=== PATIENT | female | born 1945 | race Caucasian/White ===

== ENCOUNTER 2018-09-25 11:03 | Outpatient (CLI) | payer OTHER, SELFPAY ==
[2018-09-25 11:51] LABS: HCT 44.3 % (36.0-46.0); HGB 14.7 g/dL (12.0-15.5)
[2018-09-25 12:25] LABS: COMMENT (LAB VIEW ONLY) 150.36 mg/dL
[2018-09-25 14:55] LABS: Anion Gap 13.7 mmol/L (3-11); BUN 24 mg/dL (7-18); CO2 25.3 mmol/L (21.0-32.0); CREATININE 1.18 mg/dL (0.55-1.02); Calcium 9.5 mg/dL (8.5-10.1); Chloride 102 mmol/L (98-107); Estimated GFR 45.15 (mL/min/1.73m2); Glucose 113 mg/dL (70-100); Potassium 4.5 mmol/L (3.5-5.1); Sodium 141 mmol/L (136-145); TSH 1.84 uIU/mL (0.358-3.74)
[2018-09-25 15:09] LABS: Calculated LDL 92; Cholesterol 177 mg/dL (50-200); HDL Cholesterol 57 mg/dL (40-60); Triglyceride 141 mg/dL (30-150)
== END 2018-09-25 11:23 ==
PROVIDERS: PCP Internal Medicine; Visit Provider Internal Medicine
DX: E11.9 Type 2 diabetes mellitus without complications (principal); E78.00 Pure hypercholesterolemia, unspecified; I10 Essential (primary) hypertension; Z51.81 Encounter for therapeutic drug level monitoring; Z79.1 Long term (current) use of non-steroidal anti-inflammatories (NSAID); R63.5 Abnormal weight gain
CPT/HCPCS: 36415; 80048; 80061; 83721; 82043; 82570; 84443; 85014; 85018

== ENCOUNTER 2019-01-01 01:19 | Outpatient (CLI) | payer OTHER, SELFPAY ==
--- NOTE | 2019-01-01 09:34 | DI.CTLCSR_ITS ---
EXAM: CT CHEST LUNG CANCER SCREEN CLINICAL HISTORY: annual z87.891 history nicotine dependence. TECHNIQUE: A low-dose chest CT was carried out according to the usual protocol. COMPARISON: CHEST - LUNG CANCER SCREENING from 10/12/2017 FINDINGS: No pulmonary nodules are identified. The lungs are free of infiltrate. There is no pleural effusio n. The heart is not enlarged. Allowing for the absence of contrast material, there is no evidence o f hilar adenopathy. There are atherosclerotic changes involving the aorta without evidence of an aneu rysm. IMPRESSION: This is a lung rads category 1 examination, follow-up surveillance with annual low-dose chest CT is r ecommended.
== END 2019-01-01 01:39 ==
PROVIDERS: PCP Internal Medicine; Visit Provider Internal Medicine
DX: Z12.2 Encounter for screening for malignant neoplasm of respiratory organs; Z87.891 Personal history of nicotine dependence; I70.0 Atherosclerosis of aorta
CPT/HCPCS: G0297

== ENCOUNTER 2020-08-04 03:20 | Outpatient (CLI) | payer OTHER, SELFPAY ==
[2020-08-04 11:37] LABS: Anion Gap 11.3 mmol/L (3-11); BUN 16 mg/dL (7-18); CO2 25.7 mmol/L (21.0-32.0); CREATININE 1.2 mg/dL (0.55-1.02); Calcium 8.9 mg/dL (8.5-10.1); Calculated LDL 91 mg/dL (<100); Chloride 104 mmol/L (98-107); Cholesterol 178 mg/dL (<200); Estimated GFR 44.04 (mL/min/1.73m2); Glucose 137 mg/dL (74-106); HDL Cholesterol 62 mg/dL (40-60); Potassium 4.1 mmol/L (3.5-5.1); Sodium 141 mmol/L (136-145); Triglyceride 128 mg/dL (<150)
[2020-08-04 11:55] LABS: Microalb ug/mg Crea 49.5 ug/mg Cr
== END 2020-08-04 03:21 | disposition home or self-care (01) ==
LOC: LBO 03:20
PROVIDERS: PCP Internal Medicine; Visit Provider Internal Medicine
DX: I10 Essential (primary) hypertension (principal); E11.9 Type 2 diabetes mellitus without complications; E78.00 Pure hypercholesterolemia, unspecified
CPT/HCPCS: 36415; 80048; 80061; 82043; 82570

== ENCOUNTER 2021-02-05 00:35 | Outpatient (CLI) | payer MEDICARE, SELFPAY ==
--- NOTE | 2021-02-05 | DI.MAMMO_ITS ---
Exam(s) MAMMO SCREENING EXAM: MAMMO SCREENING CLINICAL HISTORY: screening,Z12.39 TECHNIQUE: Mammograms were interpreted according to the usual protocol including computer analysis w Notegraphy system, tomosynthesis and C-view imaging. COMPARISON: FINDINGS: The breasts are of moderate density with fairly symmetrical distribution of fibroglandular tissue. N o dominant mass is identified in either breast. There are benign-appearing calcifications in both br easts which appear stable in comparison with previous examination October 2017. No other significant change seen. IMPRESSION: No specific evidence of malignancy at this time. Routine screening examinations are suggested at yea rly intervals due to the family history of breast carcinoma.. BI-RADS Category 1 - Negative Breast Density - Category B - Scattered areas of fibroglandular density
--- NOTE | 2021-02-05 | DI.CTLCSR_ITS ---
Exam(s) CT CHEST LUNG CANCER SCREEN EXAM: CT CHEST LUNG CANCER SCREEN CLINICAL HISTORY: Screening for lung cancer,FORMER SMOKER, Z87.891 TECHNIQUE: CT examination of the chest was performed utilizing low-dose lung cancer screening protoc ol. COMPARISON: CT CT CHEST LUNG CANCER SCREEN from 01/01/2019 FINDINGS: Images obtained through the upper abdomen show unremarkable appearance of visualized portions of the liver and spleen. There is no mediastinal or hilar adenopathy. Mediastinal vascular structures appear intact by noncon trast criteria. Tracheobronchial tree appears intact. No pleural effusion or pleural-based mass. The lungs are clear with no significant intrapulmonary nodule identified. Note is made of coronary artery calcification. IMPRESSION: Lung RADS Cat 1 - Negative: No nodules and definitely benign nodules Continue annual screening with LDCT in 12 months. RADIATION DOSE DELIVERED: 93.17mGy.cm Total DLP 2.21mGy CTDIvol 93.17mGy.cm Total DLP 2.21mGy CTDIvol RADIATION OPTIMIZATION: All CT scans at this facility use at least one of these dose optimization te chniques: automated exposure control; mA and/or kV adjustment per patient size (includes targeted exa ms where dose is matched to clinical indication); or iterative reconstruction.
--- NOTE | 2021-02-05 | DI.DEXA_ITS ---
Exam(s) XR DEXA BONE DENSITY W/WO RASHEL EXAM: XR DEXA BONE DENSITY W/WO RASHEL CLINICAL HISTORY: screening for osteoporosis IN POSTMENOPAUSAL WOMAN,Z78.0 TECHNIQUE: COMPARISON: No exams were available for comparison FINDINGS: DEXA scan was performed according to the usual protocol. Findings for left hip scanning are T-score -1.4 with left femoral neck T-score -1.9. Findings for lumbar spine scanning are T-score -1.0. Prior scan of May 2011 showed lumbar T-sco re -1.3. Right forearm scanning shows T-score -2.2. Prior examination of 29/03 showed forearm T-score -0.9. IMPRESSION: The findings are consistent with osteopenia according to the WHO criteria. The lateral vertebral sca nogram shows no evidence of a vertebral compression fracture. RADIATION DOSE DELIVERED: Total DLP
== END 2021-02-05 00:55 ==
PROVIDERS: PCP Internal Medicine; Visit Provider Internal Medicine
DX: Z13.820 Encounter for screening for osteoporosis (principal); Z78.0 Asymptomatic menopausal state; Z12.31 Encounter for screening mammogram for malignant neoplasm of breast; Z12.2 Encounter for screening for malignant neoplasm of respiratory organs; Z80.3 Family history of malignant neoplasm of breast; M85.89 Other specified disorders of bone density and structure, multiple sites
CPT/HCPCS: 71271; 77063; 77067; 77080

== ENCOUNTER 2021-11-05 01:25 | Outpatient (CLI) | payer MEDICARE, SELFPAY ==
--- OUTSIDE RECORDS SUMMARY | 2021-11-05 01:28 | XMS_ITS | Encounter Summary ---
:1945 [place] [address] Care Team Providers Name Role Phone Rasheeda Reyes MD Primary Care Provider Reason for Visit Reason Comments Follow-up Nephrolithiasis Encounter Details Date Type Department Care Team Description 01/20/2015 Office Visit Urology at [facility] Kwame Medrano Jr., Nephrolithiasis [facility] [place] [address] [facility] [phone] UROLOGY DEPT. [place], [place] [address] (Wo rk) Social History Tobacco Use Types Packs/Day Years Used Date Former Smoker 0.5 Quit: 11/19/19 15 Smokeless Tobacco: Never Used Alcohol Use Standard Drinks/Week Comments No 0 (1 standard drink = 0.6 oz pure alcoho l) Sex Assigned at Date Recorded Not on file documented as of this encounter Last Filed Vital Signs Vital Sign Reading Time Taken Comments Blood Pressure 125/65 01/20/2015 9:40 AM EDT Pulse 105 01/20/2015 9:40 AM EDT Temperature - - Respiratory Rate - - Oxygen Saturation 96% 01/20/2015 9:40 AM EDT Inhaled Oxygen Concentration - - Weight - - Height - - Body Mass Index - - documented in this encounter Progress Notes Kwame Medrano Jr., MD - 01/20/2015 10:06 AM EDT HPI: Isaura Castillo is a 69 year old woman who presents for follow up after left renal SWL for a proximal left ureteral stone. She passed gravel postop, brings it in today. She is comfortable, denies ant residual abdominal or flank pain. She denies any hematuria or new LUTS. She has no prior history of urolithiasis MEDICAL AND SURGICAL HISTORY HTN Arthritis S/p left renal SWL Left ureteral stent placement and stent removal FAMILY HISTORY: No known family h/o urolithiasis Physical Exam Constitutional: She appears well-developed and well-nourished. No distress. Abdominal: Soft. There is no tenderness. Genitourinary: No CVA tenderness to percussion bilaterally Skin: She is not diaphoretic. Psychiatric: She has a normal mood and affect. Imaging studies: I independently reviewed the renal ultrasound from today. This reveals no evidence of residual hydronephrosis, hydroureter, or stones. KUB no longer shows previously demonstrated left proximal ureteral stone Imoression/Plan: Doing well s/p left renal SWL. No evidence of residual stone or hydro on u/s. Stonefragments (visually appears to be mostly tissue) sent for stone analysis. She will call in 1-2 weeksto review stone analysis. Plan follow up in 1 year with renal u/s documented in this encounter Miscellaneous Notes Addendum Note - Jazz York LPN - 01/20/2015 1:01 PM EDT Addended by: JAZZ YORK on: 01/20/2015 01:01 PM Modules accepted: Orders documented in this encounter Plan of Treatment Not on filedocumented as of this encounter Procedures Procedure Name Priority Date/Time Associated Diagnosis Comme nts KIDNEY STONE Routine 01/20/2015 12:26 Nephrolithiasis Results for this ANALYSIS PM EDT procedure are i n the results section. documented in this encounter Results Kidney Stone Analysis (01/20/2015 12:26 PM EDT) [facility] Method Time Signature Kidney Stone CERNER Analysis Test ?Result ?Flag ??Unit ??RefValue MILLENNIUM Kidney Stone Analysis ??Source: ? Bladder ??1st Constituent: 80% Calcium phosphate (apatite) ??2nd Constituent: 10% Calcium oxalate dihydrate ??3rd Constituent: ?10% Calcium carbonate Test Performed by: [facility] [address] [place] [address] [employer] Worker: Geo Avendano II, M.D., Ph.D. Specimen Anatomical Collection Method Collection Time Receive d Time (Source) Location / / Volume Laterality Calculus 01/20/2015 12:26 01/21/2015 8:46 specimen PM EDT AM EDT (specimen) Resulting Agency Comment Spec In Lab Kwame Medrano Jr., MD BODY FLUIDS AND STOOLS ORDER QUIN Performing Organization Address City/State/ZIP Code Phon e Number [address] [facility] documented in this encounter Visit Diagnoses Diagnosis Nephrolithiasis Calculus of kidney documented in this encounter Care Teams Buffing Turner And Counter Relationship Specialty Start Date End Date Rasheeda Reyes MD PCP - General 11/19/[address] [place] [address] documented as of this encounter
--- OUTSIDE RECORDS SUMMARY | 2021-11-05 01:28 | XMS_ITS | Clinical Summary ---
:1945 Author Organization [facility] [place] [address] Care Team Providers Name Role Phone Rasheeda Reyes MD Primary Care Provider Allergies Active Allergy Reactions Severity Noted Date Comments Mcmahon Ryan Other (See Comments) Low 11/19/2014 rhinorr hea Medications Medication Sig Dispensed Refills Start Date End Date Status losartan-hydrochlorothia 0 04/27/2009 Active zide (HYZAAR) 100-12.5 mg per tablet meclizine (ANTIVERT) 25 0 04/27/2009 Active mg tablet Qgocbadrrfxbv-Ivuamogq-Z 0 04/27/2009 Active utein (CENTRUM SILVER) Tab acetaminophen (TYLENOL 0 04/27/2009 Active EXTRA STRENGTH) 500 mg tablet potassium chloride Take 10 mEq by 0 Active (MICRO-K) 10 mEq mouth 2 times Capsule, Sustained daily. Release lovastatin (MEVACOR) 40 Take 80 mg by 0 Active mg Tablet mouth nightly. amLODIPine (NORVASC) 2.5 Take 2.5 mg by 0 Active mg Tablet mouth daily. cholecalciferol, Vitamin Take by mouth. 0 Active D3, (CHOLECALCIFEROL, VITAMIN D3,) 2,000 unit Capsule cyanocobalamin, vitamin Take 100 mcg by 0 Active B-12, 100 mcg Tablet mouth daily. losartan (COZAAR) 100 mg Take 12.5 mg by 0 Active Tablet mouth daily. aspirin 81 mg Tablet, Take 81 mg by 0 Active Delayed Release (E.C.) mouth daily. Active Problems Problem Noted Date Hydronephrosis with obstructing calculus 11/22/2014 Hypertension 11/19/2014 Benign positional vertigo 11/19/2014 Family History Medical History Relation Comments Anesthesia Reaction Neg Hx Social History Tobacco Use Types Packs/Day Years Used Date Former Smoker 0.5 Quit: 11/19/19 15 Smokeless Tobacco: Never Used Alcohol Use Standard Drinks/Week Comments No 0 (1 standard drink = 0.6 oz pure alcoho l) Sex Assigned at Date Recorded Not on file Last Filed Vital Signs Vital Sign Reading Time Taken Comments Blood Pressure 125/65 01/20/2015 9:40 AM EDT Pulse 105 01/20/2015 9:40 AM EDT Temperature 36.2 ??C (97.2 ??F) 12/05/2014 1:09 PM EDT Respiratory Rate 16 12/05/2014 1:16 PM EDT Oxygen Saturation 96% 01/20/2015 9:40 AM EDT Inhaled Oxygen Concentration - - Weight 88.9 kg (196 lb) 12/05/2014 11:15 AM EDT Height 158.8 cm (5' 2.5) 12/05/2014 11:15 AM EDT Body Mass Index 35.28 12/05/2014 11:15 AM EDT Plan of Treatment Health Maintenance Due Date Last Done Comments Covid-19 Vaccine (#1) 10/01/1950 Hepatitis C Screening 1964 Tdap adult 1965 Tetanus vaccine 1965 Colonoscopy 10/01/1991 Zoster vaccine (1 of 2) 1996 Advance Directive 2001 Bone Density Scan 10/01/2011 Pneumoccocal Vaccine: 65+ (1 - PCV) 10/01/2011 Influenza (Flu) vaccine (1 of 1 - Influenza standard 12/09/2021 series) Medical Devices Implanted Type Area 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 [employer] 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 Device Shelf Model / Identifier Expiration Serial / Date Lot Stent,[id number] ([id number]) - [id number] IMPLANTS Left: D O NOT USE 06/19/2017 [id number] / Implanted: Qty: 1 on 11/19/2014 by Kwame Medrano Jr., MD at [facility] access hospital [facility] [id number] Insurance Payer Benefit Plan / Subscriber ID Effective Dates Phone Addre ss Type Group [facility] [id number] 2017-Loy [phone] [address] [address] MEDICARE MANAGED nt [address] [place] [address] Advance Directives Latest Code Status on File Code Status Date Activated Date Inactivated Comments Full Code 12/05/2014 11:56 AM 12/05/2014 4:53 PM Does patient have capacity to make decision: Yes Full Code 12/05/2014 11:55 AM 12/05/2014 11:56 AM Does patient have capacity to make decision: Yes Full Code 11/19/2014 12:06 PM 11/22/2014 8:36 PM Does patient have capacity to make decision: Yes Full Code 11/19/2014 10:32 AM 11/19/2014 12:06 PM Does patient have capacity to make decision: Yes Care Teams Aircraft Pneudraulics Repairer Relationship Specialty Start Date End Date Rasheeda Reyes MD PCP - General 11/19/14 [facility] [place] [address] [address] [place] [address]
--- OUTSIDE RECORDS SUMMARY | 2021-11-05 01:28 | XMS_ITS | Encounter Summary ---
:1945 Author Organization [facility] [place] [address] Care Team Providers Name Role Phone Rasheeda Reyes MD Primary Care Provider Encounter Details Date Type Department Care Team Description 01/20/2015 Hospital Encounter Ultrasound at [facility] Tyrone Graham Hydronephrosis with [facility] MD Favian obstructing calculus [facility] [id number] UROLOGY DEPT[address] [phone] [place] [address] Social History Tobacco Use Types Packs/Day Years Used Date Former Smoker 0.5 Quit: 11/19/19 15 Smokeless Tobacco: Never Used Alcohol Use Standard Drinks/Week Comments No 0 (1 standard drink = 0.6 oz pure alcoho l) Sex Assigned at Date Recorded Not on file documented as of this encounter Medications at Time of Discharge Medication Sig Dispensed Refills Start Date End Date potassium chloride (MICRO-K) Take 10 mEq by 0 10 mEq Capsule, Sustained mouth 2 times Release daily. lovastatin (MEVACOR) 40 mg Take 80 mg by mouth 0 Tablet nightly. amLODIPine (NORVASC) 2.5 mg Take 2.5 mg by 0 Tablet mouth daily. cholecalciferol, Vitamin D3, Take by mouth. 0 (CHOLECALCIFEROL, VITAMIN D3,) 2,000 unit Capsule cyanocobalamin, vitamin Take 100 mcg by 0 B-12, 100 mcg Tablet mouth daily. losartan (COZAAR) 100 mg Take 12.5 mg by 0 Tablet mouth daily. aspirin 81 mg Tablet, Take 81 mg by mouth 0 Delayed Release (E.C.) daily. losartan-hydrochlorothiazide 0 010 (HYZAAR) 100-12.5 mg per tablet meclizine (ANTIVERT) 25 mg 0 0 tablet Bglfnebsxvfpn-Alewrzsi-Slbye 0 010 n (CENTRUM SILVER) Tab acetaminophen (TYLENOL EXTRA 0 010 STRENGTH) 500 mg tablet documented as of this encounter Plan of Treatment Not on filedocumented as of this encounter Procedures Procedure Name Priority Date/Time Associated Diagnosis Comme nts US RETROPERITONEAL Routine 01/20/2015 9:12 Hydronephrosis with Results for this COMPLETE AM EDT obstructing calculus procedu re are in the results section. documented in this encounter Results US Retroperitoneal Complete (01/20/2015 9:12 AM EDT) Anatomical Region Laterality Modality Abdomen Ultrasound Specimen (Source) Anatomical Collection Method Collection Time Re ceived Time Location / / Volume Laterality 01/20/2015 9:11 AM EDT Impressions 01/20/2015 9:31 AM EDT Impression Ultrasound - ??Retroperitoneal Complete - Summary 1. Normal appearing left kidney. 2. Scarring of the right kidney upper p ole, and a small renal cortical cyst <1 cm. 3. ??No hydronephrosis. 4. Partially distended normal contour b ladder. I ??viewed the images and agree with bren velásquez above interpretation. ?Januaryse Maureen Gaona MD Electronically Signed Final Report ?? 09:31 am Narrative 01/20/2015 9:31 AM EDT Renal ?(Signed Final 01/20/2015 09:31 am) Patient Info ID #: ? [id number] ?: ??[birth year] (69 yrs) Name: ? MARKOS BARRIGA ? Visit Date: 01/20/2015 09:11 am Performed By Performed By: ? Maria Alejandra De La Garza RDMS Attending: ?Candelaria MARTE, Rosario Reddy. Referred By: ?TYRONE GRAHAM MD Service(s) Provided ??URETRO - Retroperitoneal Complete - I [id number] ? [id number] Indications ??S/p RIGHT SWl and Stent removal?resid ual stone ??or hydronephr Right Kidney Size (cm) ?L: ??11.2 Cortical Thickness: ?Normal Cortical Echogenicity: ?? Normal Hydronephrosis: ?No sonogr aphic evidence Comment: ?Scarring in upper pole Left Kidney Size (cm) ?L: ??10.0 Cortical Thickness: ?Normal Cortical Echogenicity: ?? Normal Hydronephrosis: ?No sonogr aphic evidence Urinary Bladder Pre-void (cm) ? L: ??4.2 ? A P: ??3.4 ? TV: ??4.9 Vol (ml): ?36.6 Comment: ?Partially distended, norm al contour Procedure Note January Gaona MD - 01/20/2015Forma tting of this note might be different from the original. Renal (Signed Final 01/20/2015 09:31 am ) Patient Info ID #: [id number] : [birth year] (69 y rs) Name: MARKOS BARRIGA Visit Date: 01/08 09:11 am Performed By Performed By: Maria Alejandra De La Garza RDMS Attending: January Gaona MD Referred By: TYRONE GRAHAM MD Service(s) Provided URETRO - Retroperitoneal Complete - [facility] 3517 [id number] Indications S/p RIGHT SWl and Stent removal?residua l stone or hydronephr Right Kidney Size (cm) L: 11.2 Cortical Thickness: Normal Cortical Echogenicity: Normal Hydronephrosis: No sonographic evidence Comment: Scarring in upper pole Left Kidney Size (cm) L: 10.0 Cortical Thickness: Normal Cortical Echogenicity: Normal Hydronephrosis: No sonographic evidence Urinary Bladder Pre-void (cm) L: 4.2 AP: 3.4 TV: 4.9 Vol (ml): 36.6 Comment: Partially distended, normal co ntour IMPRESSION Impression Ultrasound - Retroperitoneal Complete - Summary 1. Normal appearing left kidney. 2. Scarring of the right kidney upper p ole, and a small renal cortical cyst <1 cm. 3. No hydronephrosis. 4. Partially distended normal contour b ladder. I viewed the images and agree with the above interpretation. January Gaona MD Electronically Signed Final Report 01/20 09:31 am Tyrone Graham Jr., MD IMG US GEN ORDERABLES documented in this encounter Visit Diagnoses Diagnosis Hydronephrosis with obstructing calculus Hydronephrosis documented in this encounter Care Teams Game Author Relationship Specialty Start Date End Date Rasheeda Reyes MD PCP - General 11/19/[address] [place] [address] documented as of this encounter
--- OUTSIDE RECORDS SUMMARY | 2021-11-05 01:28 | XMS_ITS | Encounter Summary ---
:1945 Author Organization [facility] [place] [address] Care Team Providers Name Role Phone Rasheeda Reyes MD Primary Care Provider Encounter Details Date Type Department Care Team Description 01/20/2015 Hospital Encounter XRay at [facility] Kwame Medrano Hydronephrosis with [address] Favian MD obstructing calculus [facility] [id number] CENTER [phone] [place] [address] Social History Tobacco Use Types Packs/Day Years Used Date Former Smoker 0.5 Quit: 11/19/19 15 Smokeless Tobacco: Never Used Alcohol Use Standard Drinks/Week Comments No 0 (1 standard drink = 0.6 oz pure alcoho l) Sex Assigned at Date Recorded Not on file documented as of this encounter Medications at Time of Discharge Medication Sig Dispensed Refills Start Date End Date losartan-hydrochlorothiazide (HYZAAR) 0 04/27/2009 100-12.5 mg per tablet meclizine (ANTIVERT) 25 mg tablet 0 Uuuzcvzfxmffw-Rqbqiarp-Byjftv (CENTRUM 0 04/27/2009 SILVER) Tab acetaminophen (TYLENOL EXTRA STRENGTH) 500 0 04/27/2009 mg tablet documented as of this encounter Plan of Treatment Not on filedocumented as of this encounter Procedures Procedure Name Priority Date/Time Associated Diagnosis Comme nts XR ABDOMEN 1 VIEW Routine 01/20/2015 8:22 AM Hydronephrosis wi th Results for this EDT obstructing calculus procedu re are in the results section. documented in this encounter Results XR Abdomen 1 View (GENERIC) (01/20/2015 8:22 AM EDT) Anatomical Region Laterality Modality Abdomen N/A Digital Radiography Specimen (Source) Anatomical Location Collection Method / Collectio n Time Received Time / Laterality Volume Impressions 01/20/2015 10:08 AM EDT IMPRESSION: No abnormal abdominal calcifications see n. Specifically, the previously noted left UPJ calculus is no longer visualize d. Narrative 01/20/2015 10:08 AM EDT EXAMINATION: XR ABDOMEN ONE VIEW CLINICAL HISTORY: s/p R SWL ?residual st ones TECHNIQUE: Supine abdomen. Overlying bow el contents somewhat limits evaluation of the renal beds. COMPARISON: 12/05/2014, 11/19/2014 FINDINGS: No abnormal abdominal calcific ations are seen. The previously seen calcification at the level of the left UPJ is no longer visualized. The left ureteral stent has been removed. The bowel gas pattern is unremarkable. The bones and the lung bas es are unremarkable. Procedure Note Queenie Karimi MD - 5 EXAMINATION: XR ABDOMEN ONE VIEW CLINICAL HISTORY: s/p R SWL ?residual st ones TECHNIQUE: Supine abdomen. Overlying bow el contents somewhat limits evaluation of the renal beds. COMPARISON: 12/05/2014, 11/19/2014 FINDINGS: No abnormal abdominal calcific ations are seen. The previously seen calcification at the level of the left UPJ is no longer visualized. The left ureteral stent has been removed. The bowel gas pattern is unremarkable. The bones and the lung bas es are unremarkable. IMPRESSION IMPRESSION: No abnormal abdominal calcifications see n. Specifically, the previously noted left UPJ calculus is no longer visualize d. Kwame Medrano Jr., MD IMG DX ORDERABLES documented in this encounter Visit Diagnoses Diagnosis Hydronephrosis with obstructing calculus Hydronephrosis documented in this encounter Care Teams Hat Copyist Relationship Specialty Start Date End Date Rasheeda Reyes MD PCP - General 11/19/[address] [place] [address] documented as of this encounter
--- OUTSIDE RECORDS SUMMARY | 2021-11-05 01:29 | XMS_ITS | Encounter Summary ---
:1945 [place] [address] Care Team Providers Name Role Phone Rasheeda Reyes MD Primary Care Provider Encounter Details Date Type Department Care Team Description 12/05/2014 Anesthesia Event Outpatient Surgery Sandra Pacheco MD [facility] [place] [address] [place] Mayra Parrish MD [facility] [place] [address] [place] [address] Anesthesia Record Procedure Summary Procedure Name Responsible Anesthesia Start Anesthesia Stop Time Anesthesiologist Time E.S.W.L. (WRVU Amrita Pacheco MD 12/05/14 1203 12/05/14 13 09 9.77) (Left Flank) Events Date Time Event Comment 12/05/2014 1149 1203 Start 1204 AN Verify 1204 An Start Data 1209 An Induction 1211 An Intubation 1214 Anesthesia Ready 1252 An Data Art BP cuff on left arm which is flexed at the elbow. Switched BP cuff to right arm. 1302 Extubation/LMA Out To Delete (sk ip) the Extubation event, click the X below. 1302 an stop data 1309 Stop Name Total fentaNYL 50 mcg IV Lidocaine 50 mg Propofol 130 mg ePHEDrine 30 mg ampicillin 2g vial attach to sodium chloride 0.9% 100 mL Mini-Bag Plus 2 g gentamicin (GARAMYCIN) 266.8 mg in sodium chloride 0.9 % 106.67 mL 80 mg Lactated Ringers 900 mL Agents Name O2 Air Sevoflurane (et) Blood No blood administrations on file. Lines, Drains, and Airways Type Details Placement Removal PIV 12/05/14; 1139; metacarpal 12/05/14 1139 by Yaya en, 12/05/14 1413 by vein left (top of hand); SONI Avendaño John P, RN [id number] catheter system; 22 gauge; distraction, intradermal injection; 0; no longer indicated; 12/05/14; 1413 Supraglottic LMA Type: iGel; LMA Size: 12/05/14 1211 by Junior , 12/05/14 1302 by 4; Inserted by: MD Arian Isaacs Kr isty H, MD documented in this encounter Social History Tobacco Use Types Packs/Day Years Used Date Former Smoker 0.5 Quit: 11/19/19 15 Smokeless Tobacco: Never Used Alcohol Use Standard Drinks/Week Comments No 0 (1 standard drink = 0.6 oz pure alcoho l) Sex Assigned at Date Recorded Not on file documented as of this encounter OR Notes Anesthesia Postprocedure Evaluation - Amrita Pacheco MD - 12/05/2014 1:21 PM EDT Patient: Isaura Castillo Procedure(s) Performed: Procedure(s): E.S.W.L. CYSTO, REMOVAL OF STENT, FOREIGN BODY OR CALCULUS, SIMPLE Actual Anesthetic: general Patient location: PACU Post-op pain: Adequate analgesia Post-op nausea: no nausea or vomiting Last Vitals: Filed Vitals: 12/05/14 1309 BP: 133/72 Pulse: 85 Temp: 36.2 ??C (97.2 ??F) Resp: 16 Post-op cardiovascular and respiratory status: is stable Level of consciousness: awake, alert and oriented Complications: no apparent complications and tolerated the procedure well Fluid Status: normal Anesthesia Preprocedure Evaluation - Amrita Pacheco MD - 12/04/2014 7:24 PM EDT Pre-Anesthesia Evaluation for: Isaura Castillo a 69 y.o. female. Procedure(s): E.S.W.L. CYSTO, REMOVAL OF STENT, FOREIGN BODY OR CALCULUS, SIMPLE Patient Active Problem List Diagnosis ??? Hydronephrosis with obstructing calculus ??? Hypertension ??? Benign positional vertigo No past medical history on file. Past Surgical History Procedure Laterality Date ??? Pro cystoscopy, insert ureteral stent Left 11/19/2014 CYSTO, STENT PLACEMENT performed by Kwame Medrano Jr., MD at [facility] MAIN OR ??? Pro cystourethroscopy, ureter catheter Left 11/19/2014 CYSTO, RETROGRADE, URETEROPYELOGRAPHY performed by Kwame Medrano Jr., MD at [facility] MAIN OR History Substance Use Topics ??? Smoking status: Former Smoker -- 0.50 packs/day Quit date: 11/18/2014 ??? Smokeless tobacco: Never Used ??? Alcohol Use: No History Drug Use Not on file Allergies Allergen Reactions ??? Mcmahon Ryan Other (See Comments) rhinorrhea Medications: MAR and/or home medications have been reviewed. Physical Exam: There were no vitals filed for this visit. There is no weight on file to calculate BMI. Airway Assessment: Mallampati: II TM distance: >3 FB Neck ROM: full Cardiovascular Assessment: Rhythm: regular Rate: normal Pulmonary Assessment: breath sounds clear to auscultation Dental Assessment: (+) upper dentures and lower dentures Misc Assessment: Patient is wearing No contact(s). IV access: Peripheral line Anesthesia Plan: ASA 2 general, with a(n) intravenous induction 69 yo F with h/o HTN and HLP (on lovastatin, ezetimibe and hyzaar) here for left ESWL and cysto stent removal. Has had GA in the past without complications. Appropriately NPO. No GERD. Plan for GA LMA,standard ASA monitors. Region - Other Informed Consent: Anesthetic plan and risks discussed with patient. Plan discussed with attending and resident. Misc. Assessment: documented in this encounter Plan of Treatment Not on filedocumented as of this encounter Visit Diagnoses Not on filedocumented in this encounter Administered Medications Inactive Administered Medications - up to 3 most recent administrations Medication Order MAR Action Action Date Dose Rate Site ampicillin 2g vial attach to sodium Given 12/05/2014 12:19 PM ED T 2 g chloride 0.9% 100 mL Mini-Bag Plus 2,000 mg (2 g), Intravenous, SPEEDER OPERATOR TO O.R., 1 dose, On 12/06/14 at 0000, Administer over 15 Minutes, Day of Surgery (Day of Procedure), Indication for (Active or Suspected): Prophylaxis ePHEDrine 5 mg/mL multi-dose injection Given 12/05/2014 12:39 PM EDT 10 mg PRN, Starting on Mon12/05/14 at 1223, Until Mon12/05/14 at 1313, Anesthesia Intra-op, Routine Given 12/05/2014 12:33 PM EDT 10 mg Given 12/05/2014 12:30 PM EDT 5 mg fentaNYL 50 mcg/mL multi-dose injection Given 12/05/2014 12:18 PM EDT 50 mcg PRN, Starting on Mon12/05/14 at 1218, Until Mon12/05/14 at 1313, Pain, Anesthesia Intra-op, Routine gentamicin (GARAMYCIN) 266.8 mg in sodium Given 12/05/2014 12:19 PM EDT 80 mg chloride 0.9% 106.67 mL 266.8 mg (rounded from 266.7 mg = 3 mg/kg/dose ? 88.9 kg), Intravenous, SPEEDER OPERATOR TO O.R., 1 dose, On Mon12/05/14 at 1145, Administer over 60 Minutes, Day of Surgery (Day of Procedure), Indication for (Active or Suspected): Urinary Tract/Pyelonephritis lactated ringers infusion New Bag 12/05/2014 12:03 PM EDT CONTINUOUS PRN, Starting on Mon12/05/14 at 1203, Until Mon12/05/14 at 1313, Anesthesia Intra-op lidocaine (PF) (XYLOCAINE) 100 mg/5 mL (2 %) Given 12:09 PM EDT 50 mg injection PRN, Starting on Mon12/05/14 at 1209, Until Mon12/05/14 at 1313, Anesthesia Intra-op, Routine propofol (DIPRIVAN) 10 mg/mL bolus injection Given 12:09 PM EDT 130 mg (Anesthesia) PRN, Starting on Mon12/05/14 at 1209, Until Mon12/05/14 at 1313, Anesthesia Intra-op documented in this encounter Care Teams Infrastructure Security Architect Relationship Specialty Start Date End Date Rasheeda Reyes MD PCP - General 11/19/[address] [place] [address] documented as of this encounter
--- OUTSIDE RECORDS SUMMARY | 2021-11-05 01:29 | XMS_ITS | Encounter Summary ---
:1945 [place] [address] Care Team Providers Name Role Phone Rasheeda Reyes MD Primary Care Provider Encounter Details Date Type Department Care Team Description 11/19/2014 Anesthesia Event Main Operating Room Geo Perez MD [facility] DR [place] [address] [facility] [facility] [address] [place] [address] [place] [address] Anesthesia Record Procedure Summary Procedure Name Responsible Anesthesia Start Anesthesia Stop Time Anesthesiologist Time CYSTO, STENT Geo Low MD 11/19/14 1048 11/19/14 1159 PLACEMENT (WRVU 2.82) (Left Bladder) Events Date Time Event Comment 11/19/2014 1027 1048 Start 1048 AN Verify 1051 An Start Data 1056 An Induction 1057 An Intubation 1100 Anesthesia Ready 1120 Procedure Start 1152 Extubation/LMA Out To Delete (sk ip) the Extubation event, click the X below. 1152 an stop data 1159 Stop Name Total Midazolam 2 mg fentaNYL 100 mcg IV Lidocaine 50 mg Propofol 200 mg PHENYLephrine 480 mcg ePHEDrine 10 mg Ondansetron 4 mg Dexamethasone 4 mg ceFAZolin (ANCEF) 2g in dextrose 5% 50 mL 2 g Ciprofloxacin 400 mg lactated ringers infusion 600 mL Agents Name O2 Air Sevoflurane (et) Blood No blood administrations on file. Lines, Drains, and Airways Type Details Placement Removal Supraglottic Mask Ventilation: Not 11/19/14 1057 by 11/19/14 1152 by Attempted (0); LMA Type: Rylie Ash CRNA J ohnson, Mary E, iGel; LMA Size: 3; MILLWRIGHT HELPER Inserted by: yari ash crna Urethral Catheter 11/19/14; 1142; Urologic 11/19/14 1142 by 11/08 08/22 1641 by surgery; indwelling ScelzaTrisha RN Bolivar watts, double lumen catheter; Mary Horn RN 100% silicone; 16; inserted at this facility (By Gurjit Fontanez MD); 1; 5; 10; none; drainage bag to dependent drainage; 11/22/14; 1641 documented in this encounter Social History Tobacco Use Types Packs/Day Years Used Date Current Every Day Smoker 0.5 Smokeless Tobacco: Never Used Alcohol Use Standard Drinks/Week Comments No 0 (1 standard drink = 0.6 oz pure alcoho l) Sex Assigned at Date Recorded Not on file documented as of this encounter OR Notes Anesthesia Postprocedure Evaluation - Geo Low - 11/19/2014 6:37 PM EDT Patient: Isaura Castillo Procedure(s) Performed: Procedure(s): CYSTO, STENT PLACEMENT CYSTO, RETROGRADE, URETEROPYELOGRAPHY Actual Anesthetic: generalLMA Patient location: PACU Post-op pain: Adequate analgesia Post-op nausea: no nausea or vomiting Last Vitals: Filed Vitals: 11/19/14 1536 BP: 102/56 Pulse: 93 Temp: 36.8 ??C (98.2 ??F) Resp: 15 Post-op cardiovascular and respiratory status: is stable, VSS. Level of consciousness: awake, alert and oriented Complications: no apparent complications and tolerated the procedure well Fluid Status: normal Anesthesia Preprocedure Evaluation - Geo Low - 11/19/2014 9:51 AM EDT Pre-Anesthesia Evaluation for: Isaura Castillo a 69 y.o. female. Procedure(s): CYSTO, STENT PLACEMENT There are no active problems to display for this patient. No past medical history on file. No past surgical history on file. History Substance Use Topics ??? Smoking status: Not on file ??? Smokeless tobacco: Not on file ??? Alcohol Use: Not on file History Drug Use Not on file No Known Allergies Medications: MAR and/or home medications have been reviewed. Physical Exam: Filed Vitals: 11/19/14 0830 BP: 98/74 Pulse: 108 Temp: Resp: 15 There is no height on file to calculate BMI. Weight - Scale: 86.183 kg (190 lb) Airway Assessment: Mallampati: II TM distance: >3 FB Neck ROM: full Cardiovascular Assessment: Rhythm: regular Rate: normal Pulmonary Assessment: breath sounds clear to auscultation Dental Assessment: (+) lower dentures Misc Assessment: Patient is wearing No contact(s). IV access: Peripheral line Other exam findings: Dentures out. No other removables. Anesthesia Plan: ASA 2 general, with a(n) intravenous induction Prelim note: 69 yo female with history of HTN, arthritis presents for cysto stent placment for left kidney stone. Labs: WBC 13.5, Hg 14.7, PLT 239, K 3.8, Cr 1.47 Plan GA-LMA with adequate IV access and standard ASA monitors. Anesthesiology Staff (Dewhirst): Pre-op summary note as per above. For cysto/stent for L ureteral stone. I have reviewed the history, available records and diagnostic data, then formulated and discussed the anesthetic plan with patient. She is appropriately NPO, does not have GERD and is not taking opiates. Anesthetic alternatives (where appropriate), procedures, risks (from common and minor to rare and and major) and consent for anesthesia were reviewed. The patient accepts that additional procedures and/or escalation of care may be necessary as dictated by the course of the procedure/anesthetic. All questions have been answered and the consent form signed. There are no pertinent advance directives. Plan: GA/LMA;IV induction;routine monitors. Region - Other Informed Consent: Anesthetic plan and risks discussed with patient. Plan discussed with ALEX. Daniel. Assessment: documented in this encounter Plan of Treatment Not on filedocumented as of this encounter Visit Diagnoses Not on filedocumented in this encounter Administered Medications Inactive Administered Medications - up to 3 most recent administrations Medication Order MAR Action Action Date Dose Rate Site ceFAZolin (ANCEF) 2g in dextrose 5% Given 11/19/2014 11:06 AM ED T 2 g 50 mL 2 g, Intravenous, TASTE TESTER TO O.R., 1 dose, On Mon11/19/14 at 0952, Administer over 30 Minutes, Indication for (Active or Suspected): Prophylaxis ciprofloxacin (CIPRO) 400mg in dextrose 5% Given 11/19/2014 11:22 AM EDT 400 mg 200mL PRN, Starting on Mon11/19/14 at 1122, Until Mon11/19/14 at 1159, Administer over 60 Minutes, Anesthesia Intra-op dexamethasone (DECADRON) injection Given 11/19/2014 11:00 AM EDT 4 mg PRN, Starting on Mon11/19/14 at 1100, Until Mon11/19/14 at 1159, Anesthesia Intra-op, Routine ePHEDrine 5 mg/mL multi-dose injection Given 11/19/2014 11:16 AM EDT 10 mg PRN, Starting on Mon11/19/14 at 1116, Until Mon11/19/14 at 1159, Anesthesia Intra-op, Routine fentaNYL 50 mcg/mL multi-dose injection Given 11/19/2014 11:28 AM EDT 50 mcg PRN, Starting on Mon11/19/14 at 1104, Until Mon11/19/14 at 1159, Pain, Anesthesia Intra-op, Routine Given 11/19/2014 11:04 AM EDT 50 mcg lidocaine (PF) (XYLOCAINE) 100 mg/5 mL (2 %) Given 03/2015 10:56 AM EDT 50 mg injection PRN, Starting on Mon11/19/14 at 1056, Until Mon11/19/14 at 1159, Anesthesia Intra-op, Routine midazolam (PF) (VERSED) 1 mg/mL multi-dose Given 11/19/2014 10:4 8 AM EDT 2 mg injection PRN, Starting on Mon11/19/14 at 1048, Until Mon11/19/14 at 1159, Sleep, Anesthesia Intra-op, Routine ondansetron (ZOFRAN) injection Given 11/19/2014 11:10 AM EDT 4 mg PRN, Starting on Mon11/19/14 at 1110, Until Mon11/19/14 at 1159, Nausea, Anesthesia Intra-op, Routine PHENYLephrine HCl in NS (PF) Given 11/19/2014 11:31 AM EDT 80 mc g (HANK-SYNEPHRINE) 0.8 mg/10 mL (80 mcg/mL) multi-dose injection Syrg PRN, Starting on Mon11/19/14 at 1112, Until Mon11/19/14 at 1159, Anesthesia Intra-op, Routine Given 11/19/2014 11:26 AM EDT 80 mcg Given 11/19/2014 11:25 AM EDT 80 mcg propofol (DIPRIVAN) 10 mg/mL bolus injection Given 03/2015 10:56 AM EDT 200 mg (Anesthesia) PRN, Starting on Mon11/19/14 at 1056, Until Mon11/19/14 at 1159, Anesthesia Intra-op documented in this encounter Care Teams Security System Installer Relationship Specialty Start Date End Date Rasheeda Reyes MD PCP - General 11/19/[address] [place] [address] documented as of this encounter
--- OUTSIDE RECORDS SUMMARY | 2021-11-05 01:29 | XMS_ITS | Encounter Summary ---
:1945 [place] [address] Care Team Providers Name Role Phone Rasheeda Reyes MD Primary Care Provider Encounter Details Date Type Department Care Team Description 12/05/2014 Surgery Outpatient Surgery Tyrone Medrano Jr., E. S.W.L. (WRVU 9.77) [facility] [place] [address] [place] [address] [phone] (Wo rk) Social History Tobacco Use Types Packs/Day Years Used Date Former Smoker 0.5 Quit: 11/19/19 15 Smokeless Tobacco: Never Used Alcohol Use Standard Drinks/Week Comments No 0 (1 standard drink = 0.6 oz pure alcoho l) Sex Assigned at Date Recorded Not on file documented as of this encounter Last Filed Vital Signs Vital Sign Reading Time Taken Comments Blood Pressure 119/70 12/05/2014 1:16 PM EDT Pulse 85 12/05/2014 1:09 PM EDT Temperature 36.2 ??C (97.2 ??F) 12/05/2014 1:09 PM EDT Respiratory Rate 16 12/05/2014 1:16 PM EDT Oxygen Saturation 95% 12/05/2014 1:16 PM EDT Inhaled Oxygen Concentration - - Weight 88.9 kg (196 lb) 12/05/2014 11:15 AM EDT Height 158.8 cm (5' 2.5) 12/05/2014 11:15 AM EDT Body Mass Index 35.28 12/05/2014 11:15 AM EDT documented in this encounter Discharge Instructions Discharge Angelica Stock RN - 12/05/2014 11:27 AM EDT General Anesthesia Discharge Instructions Go home and rest. You may be sleepy for several hours. Take it easy as sudden position changes may cause nausea and/or dizziness. Use caution on stairs. Do not smoke if you are alone. Follow a light to regular diet as tolerated today. If nausea occurs, start with clear liquids, and progress slowly to a regular diet. Do not drive, operate machinery, drink alcoholic beverages or make any legal decisions after having general anesthesia. The medications given change your reaction time and alter your judgement. IV site -- slight redness is normal, you can use warm compresses. If tenderness and redness increases or foul drainage occurs, please contact your M.D. Patients who have had endotracheal tubes/LMA (tubes used by the anesthesia staff to ensure a safe airway during your operation) may have a sore throat. This is normal and cold liquids or soothing lozengers will help ease this discomfort. Narcotic pain medications can cause constipation, please ask the surgeons office what they recommendfor prevention of this. Some non-pharmaceutical means of constipation prevention include increasing intake of fluids, eating more fruits and vegetables as well as fruit juices. If you are uncomfortable and/or unable to urinate within 8 hours of discharge and it is before 5 pm,call your physician. If it is after 5pm go to the closest emergency room or call the hospital automatic punch press operator at [phone] and ask for physician radio station engineer covering for your physician. Questions or problems after 5pm or on a weekend: Call the [facility] automatic punch press operator at and ask for the physician radio station engineer covering for your doctor. Patient InstructionsLuis Clarke - 12/05/2014 12:42 PM EDT Instructions following Shock Wave Lithotripsy Wound Care: None needed Activity: As tolerated by your comfort level. Urination: You will likely have a small amount of blood in your urine. This is normal; however, if you are passing large amounts of blood clots, bright red blood or are bleeding an unable to urinate please call our office at [phone] 5PM or [phone] after hours. Call Doctor for: Please call if you have copious blood in your urine, severe back or side pain, painnot controlled by pain medications, persistent nausea and vomiting, or for any fevers greater than 101.3 F. The number for questions is [phone] before 5 PM weekdays and [phone] after 5 PM and weekends. Pain Medication: No driving for 8 hours after any dose of opioid pain medication if one was prescribed for you. You may use ibuprofen (motrin, advil) in addition to this medication if your pain is not totally controlled by the opioid. Follow-up: You will be scheduled for follow-up with Dr. Medrano in 4 weeks with an X-ray and an ultrasound of yourkidneys. Please call [phone] (clinic number for appointments) to confirm date and time of your appointment if you do not receive your apointment in 1 week. You are to strain your urine and capture any stones to bring with you at your follow-up. documented in this encounter Medications at Time of Discharge Medication Sig Dispensed Refills Start Date End Date losartan-hydrochlorothiazi 0 0 de (HYZAAR) 100-12.5 mg per tablet meclizine (ANTIVERT) 25 mg 0 0 tablet Dssglkmzfhuht-Pnhymeou-Hyy 0 0 ein (CENTRUM SILVER) Tab acetaminophen (TYLENOL 0 04/27/2009 EXTRA STRENGTH) 500 mg tablet tamsulosin (FLOMAX) 0.4 mg Take 1 capsule by 30 tablet 0 01/20/2015 Capsule, Sust. Release 24 mouth daily. hr traMADol (ULTRAM) 50 mg Take 1 tablet by 30 tablet 0 201401/20/2015 Tablet mouth every 6 hours as needed for Pain (severe). ezetimibe (ZETIA) 10 mg 0 04/27/2009 1 tablet lovastatin (MEVACOR) 40 mg 0 04/27/201 0 01/20/2015 tablet documented as of this encounter H&P Notes Luis Clarke - 12/05/2014 11:50 AM EDT Preop H&P Ms. Barriga is s/p left ureteral stent placement on 11/20 for a symptomatic ureteral stone and obstructive pyelonephritis (bragg sensitive E. Coli). She has done well since discharge. Minimal pain. She completed a 2 week course of cipro. She has been off ASA since 11/19/14. No other changes since last seen by Urology on 11/22/14. Ok to proceed with left SWL and Ureteral stent removal. documented in this encounter Miscellaneous Notes Op Note - Luis Clarke - 12/05/2014 3:[address] [facility] Operative Note Patient Name: Markos Barriga : [id number] MR#: [id number] Case Date: 12/05/2014 Surgeon: Surgeon(s) and Role: * Tyrone Medrano Jr., MD - Primary * Luis Clarke MD - Resident-Surgeon Chief Preoperative diagnosis: LT UPJ STONE Postoperative diagnosis: LT UPJ STONE Procedure(s): E.S.W.L. CYSTO, REMOVAL OF STENT, FOREIGN BODY OR CALCULUS, SIMPLE Findings: Left stent removed without issue Good radiographic fragmentation of left renal stone Anesthesia: General Estimated Blood Loss: none apparent Specimens removed during surgery: Left ureteral stent Drains: none Surgical Closure: none Disposition: awakened from anesthesia, extubated and taken to the recovery room in a stable condition, having suffered no apparent untoward event. Condition: doing well without problems (Please see the Surgical Encounter Summary for any Implant and Specimen details pertinent to this patient.) The patient was identified and consented in preoperative holding she was marked for the procedure. She was taken back to the Operating Room and placed on the operating table in the supine position. General anesthesia was administered. She was prepped and draped in the usual sterile fashion. The flexible scope was passed per urethra. Urine was aspirated for culture. The left stent was then grasped andremoved without resistance. The stone was targeted easily using flouroscopy/ultrasound guidance, and 2500 shocks were then delivered to the stone starting at power of 3 power and increasing at intervals up to power level of 20. There was a 3 minute pause after the first 100 shocks. At the conclusion of the procedure there appeared to be fragmentation of the stone. 27 seconds of total fluoro time. The patient was awakened from anesthesia and taken to the recovery area in stable condition. Infection Bundle used? No Brief Op Note - Luis Clarke - 12/05/2014 1:03 PM EDT Brief Operative Note Patient Name: Markos Barriga : [id number] MR#: [id number] Case Date: 12/05/2014 Surgeon: Surgeon(s) and Role: * Tyrone Medrano Jr., MD - Primary * Luis Clarke MD - Resident-Surgeon Chief Preoperative diagnosis: LT UPJ STONE Postoperative diagnosis: LT UPJ STONE Procedure(s): Left S.W.L. CYSTO, REMOVAL OF STENT, FOREIGN BODY OR CALCULUS, SIMPLE (LEFT) Anesthesia: General Findings: Left stent removed without issue Good radiographic fragmentation of stone Complications: none Fluids: 1L Crystalloid Estimated Blood Loss: None apparent Drains: none Disposition: awakened from anesthesia, extubated and taken to the recovery room in a stable condition, having suffered no apparent untoward event. Condition: doing well without problems (Please see the Surgical Encounter Summary for any Implant and Specimen details pertinent to this patient.) Infection Bundle used? No Associated attestation - Tyrone Medrano Jr., MD - 12/05/2014 9:23 PM EDT I was present and I participated during the entire procedure. documented in this encounter Plan of Treatment Not on filedocumented as of this encounter Procedures Procedure Name Priority Date/Time Associated Diagnosis Comme nts URINE CULTURE Routine 12/05/2014 12:43 PM Results for this EDT procedure are i n the results section. CYSTO, REMOVAL OF Yes 12/05/2014 12:04 PM LT UPJ STONE STENT, FOREIGN BODY EDT OR CALCULUS, SIMPLE (WRVU 2.81) E.S.W.L. (WRVU Yes 12/05/2014 12:04 PM LT UPJ STONE 9.77) EDT XR ABDOMEN 1 VIEW Routine 12/05/2014 11:40 AM Res ults for this EDT procedure are i n the results section. UROLOGY SCAN 12/05/2014 12:00 AM EDT documented in this encounter Results US Retroperitoneal [...] ??viewed the images and agree with bren soto interpretation. ?Januaryse Maureen Gaona MD Electronically Signed Final Report ?? 09:31 am Narrative 01/20/2015 9:31 AM EDT Renal ?(Signed Final 01/20/2015 09:31 am) Patient Info ID #: ? [id number] ?: [birth year] (69 yrs) Name: ? MARKOS BARRIGA ? Visit Date: 01/20/2015 09:11 am Performed By Performed By: ? Maria Alejandra De La Garza RDMS Attending: ?Candelaria MARTE, Rosario Reddy. Referred By: ?TYRONE MEDRANO MD Service(s) Provided ??URETRO - Retroperitoneal Complete - I [id number] ? [id number] Indications ??S/p RIGHT SWl and Stent removal?resid [...] 09:31 am ) Patient Info ID #: [id number] : [birth year] (69 y rs) Name: MARKOS BARRIGA Visit Date: 01/08 09:11 am Performed By Performed By: Maria Alejandra De La Garza RDMS Attending: January Gaona MD Referred By: TYRONE MEDRANO MD Service(s) Provided URETRO - Retroperitoneal Complete - [facility] [place] [id number] Indications S/p RIGHT SWl and Stent removal?residua [...] Signed Final Report 01/20 09:31 am Tyrone Medrano Jr., MD IM US GEN ORDERABLES XR Abdomen 1 View (GENERIC) (01/20/2015 8:22 [...] UPJ calculus is no longer visualize d. Tyrone Medrano Jr., MD IM DX ORDERABLES Urine culture (12/05/2014 12:43 PM EDT) [facility] Method Time Signature Urine Culture No growth CERNER (Less than MILLENNIUM 100 cfu/ml). Specimen Anatomical Collection Method Collection Time Receive d Time (Source) Location / / Volume Laterality Urine specimen 12/05/2014 12:43 5 3:05 (specimen) PM EDT PM EDT Resulting Agency Comment Spec In Lab Tyrone Medrano Jr., MD MICROBIOLOGY - GENERAL ORDER QUIN Performing Organization Address City/State/ZIP Code Phon e Number AS[facility] [place] [id number] [place] [employer] XR Abdomen Routine (12/05/2014 11:40 AM EDT) Anatomical Region Laterality Modality Abdomen N/A Radiographic Imaging Specimen (Source) Anatomical Collection Method Collection Time Re ceived Time Location / / Volume Laterality 12/05/2014 11:40 AM EDT Impressions 12/05/2014 5:09 PM EDT IMPRESSION: Interval placement of a left sided ureteral stent. Narrative 12/05/2014 5:09 PM EDT EXAMINATION: DIAG ABDOMEN SINGLE VIEW/XPORT CLINICAL HISTORY: kidney stones TECHNIQUE: AP portable supine abdominal radiograph COMPARISON: 11/19/2014 FINDINGS: There is a double pigtail stent in the l eft ureter. There is a paucity of bowel gas. 10 mm left UPJ calculus is likely s till present. Procedure Note Goran Bob MD - 12/05/2014Format ting of this note might be different from the original. EXAMINATION: DIAG ABDOMEN SINGLE VIEW/XP ORT CLINICAL HISTORY: kidney stones TECHNIQUE: AP portable supine abdominal radiograph COMPARISON: 11/19/2014 FINDINGS: There is a double pigtail stent in the l eft ureter. There is a paucity of bowel gas. 10 mm left UPJ calculus is likely s till present. IMPRESSION IMPRESSION: Interval placement of a left sided ureteral stent. Tyrone Medrano Jr., MD IMG DX ORDERABLES SCAN DOC: UROLOGY (12/05/2014 12:00 AM EDT) Narrative This result has an attachment that is no t available. Scanning Provider MEDIA MGR SCAN EXT ORDR/RSLT documented in this encounter Visit Diagnoses Not on filedocumented in this encounter Active and Recently Administered Medications Times are shown in EDT. Scheduled Medication Order 12/03/2014 12/04/2014 12/05/2014 ampicillin 2g vial attach to sodium chlo ride 0.9% 100 mL Mini-Bag Plus (COMPLETED) 1219 (Given - Provid er: Amrita Pacheco MD) 2,000 mg (2 g), Intravenous, GLOVE TAGGER TO O.R., 1 dose, 12/06/14 at 0000, for 15 Minutes, Day of Surgery (Day of Procedure), Indication for (Active or Suspected): Prophylaxis gentamicin (GARAMYCIN) 266.8 mg in sodium chloride 0.9% 106.67 m L (COMPLETED) 1219 (Given - Provider: Amrita Pacheco MD) 266.8 mg (rounded from 266.7 mg = 3 mg/k g/dose ? 88.9 kg), Intravenous, GLOVE TAGGER TO O.R., 1 dose, 12/05/14 at 1145, for 60 Minutes, Day of Surgery (Day of Procedure), Indication for (Active or Susp ected): Urinary Tract/Pyelonephritis documented in this encounter Care Teams Staff Editor Relationship Specialty Start Date End Date Rasheeda Reyes MD PCP - General 11/19/[address] [place] [address] documented as of this encounter
--- OUTSIDE RECORDS SUMMARY | 2021-11-05 01:29 | XMS_ITS | Encounter Summary ---
:1945 [place] [address] Care Team Providers Name Role Phone Syed Hyman MD Primary Care Provider Reason for Visit Reason Comments Flank Pain Encounter Details Date Type Department Care Team Description 11/20/2014 - Hospital Encounter 3 Hiram Alexandra MD [facility] [place] [address] Essential hypertension; 11/22/2014 [facility] Kwame Medrano Jr., MD [facility] [place] [address] [place] [address] Social History Tobacco Use Types Packs/Day Years Used Date Current Every Day Smoker 0.5 Smokeless Tobacco: Never Used Alcohol Use Standard Drinks/Week Comments No 0 (1 standard drink = 0.6 oz pure alcoho l) Sex Assigned at Date Recorded Not on file documented as of this encounter Last Filed Vital Signs Vital Sign Reading Time Taken Comments Blood Pressure 110/74 11/22/2014 1:00 PM EDT Pulse 97 11/22/2014 1:00 PM EDT Temperature 36.8 ??C (98.2 ??F) 11/22/2014 1:00 PM EDT Respiratory Rate 16 11/22/2014 1:00 PM EDT Oxygen Saturation 98% 11/22/2014 1:00 PM EDT Inhaled Oxygen Concentration - - Weight 89.3 kg (196 lb 13.9 oz) 11/20/2014 12:00 AM EDT Height 157.5 cm (5' 2) 11/19/2014 4:38 PM EDT Body Mass Index 36.01 11/19/2014 4:38 PM EDT documented in this encounter Discharge Summaries Gurjit Fontanez MD - 11/22/2014 4:32 PM EDT Images from the original note were not included. DISCHARGE SUMMARY Patient Name: Markos Barriga Age: 69 y.o. Date of : 1945 Date of Admission: 11/19/2014 Date of Discharge: 11/22/2014 Attending Provider: Kwame Medrano Jr., MD Discharge Diagnoses (Hospital Problems) Active Hospital Problems Diagnosis ??? Hydronephrosis with obstructing calculus Resolved Hospital Problems Diagnosis Date Resolved No resolved problems to display. Secondary Diagnoses (Chronic Problems) Active Non-Hospital Problems Diagnosis ??? Hypertension ??? Benign positional vertigo Operations and Major Procedures Operations Procedure(s): CYSTO, STENT PLACEMENT CYSTO, RETROGRADE, URETEROPYELOGRAPHY History of Presentation Markos Barriga is a 69 y.o. female presenting in transfer from [facility] with LEFT flank pain and a 10 mm LEFT UPJ stone on CT abdomen/pelvis. She developed sharp, intermittent LEFT flank pain, 9/10, radiating to LEFT groin last night. She took aspirin 700 mg without relief of pain. She also noticed somehematuria. She went to OSH, where CT abdomen/pelvis demonstrated a stone in the LEFT UPJ with mild hydronephrosis. WBC 14, Cr 15. She received one dose of ciprofloxacin and was transferred to [facility] for further evaluation. Hospital Course Markos Barriga underwent cystourethroscopy and LEFT ureteral stent placement on 11/20/2014 and tolerated the procedure well without complications. Of note, turbid LEFT renal pelvic urine was seen and collected for culture. A urethral catheter was inserted for bladder decompression. Following a brief recovery in the Post-Anesthesia Care Unit, she was admitted to the Urology service for post-operativemanagement. The night after the procedure, she developed fever of 38.3 C, chills, and altered mental status. Labs demonstrated new leukocytosis and elevated serum lactate. Fluid resuscitation was initiated. Antibiotic coverage was broadened to vancomycin and piperacillin/tazobactam. She was transferred to the [facility] Unit for presumed sepsis. Her clinical course improved rapidly. On post-op day # 2, her OSH urine culture demonstrated bragg-susceptible E. coli. Antibiotic coverage was narrowed to oral ciprofloxacin. She was transferred to the regular hospital unit. She had auto- diuresis of 12 L on post-op day # 2; Nephrology service evaluatedthe patient and recommended observation. Her urine output subsequent returned to a relatively normalrate. The post-operative course was otherwise unremarkable. She tolerated an oral diet and was able to ambulate and void spontaneously. She was deemed medically appropriate for discharge on 11/22/2014. She will return for shockwave lithotripsy and ureteral stent removal in approximately two weeks. We will schedule surgery. Physical Exam at Discharge GEN: Alert and conversant. CHEST: Clear to auscultation. CV: Normal sinus rhythm. ABD: Soft, non-tender. EXTR: Moving spontaneously. Lab Data and Studies Recent Labs 11/22/14 0329 WBC 7.7 HGB 13.7 PLATELET 180 Recent Labs 11/22/14 1136 NA 137 K 3.3* CL 98 CO2 23 BUN 6* CREATININE 0.84 Studies 11/19 CT abdomen/pelvis (OSH). 10 mm LEFT UPJ stone with mild hydronephrosis. Small non-obstructing LEFT renal stone. No stones or hydronephrosis on RIGHT. 11/19 XR abdomen. 10 mm density in the expected position of the left UPJ, likely corresponds to the previously visualized calculus. Discharge Conditions 1. Hold aspirin and all blood thinners for ten days prior to shockwave lithotripsy, starting 11/25/2014. Discharge to: Home Discharge Medications Your Medications Notice Some of the medications listed here do not show instructions, such as how often to take the medication. Ask your doctor or nurse how to use these medications. Specifically ask about these and similar medications: - losartan-hydrochlorothiazide (HYZAAR) 100-12.5 mg per tablet - ezetimibe (ZETIA) 10 mg tablet - lovastatin (MEVACOR) 40 mg tablet - meclizine (ANTIVERT) 25 mg tablet - aspirin 325 mg tablet - Wxlddqiihduxr-Iekeuxvk-Xbamux (CENTRUM SILVER) Tab - acetaminophen (TYLENOL EXTRA STRENGTH) 500 mg tablet New Medications Dose Details ciprofloxacin HCl 500 mg Tab Commonly known as: CIPRO Take 1 tablet by mouth 2 times daily for 7 days. 500 mg Quantity: 14 tablet Refills: 0 docusate sodium 100 mg Cap Commonly known as: COLACE Take 1 capsule by mouth 2 times daily as needed for Constipation for up to 10 days. 100 mg Quantity: 10 capsule Refills: 0 traMADol 50 mg Tab Commonly known as: ULTRAM Take 1 tablet by mouth every 6 hours as needed for Pain (severe). 50 mg Quantity: 30 tablet Refills: 0 Continued medications, unchanged Dose Details aspirin 325 mg Tab Refills: 0 CENTRUM SILVER Tab Generic drug: Yagxvsudrttoo-Skygzjsh-Payiuj Refills: 0 HYZAAR 100-12.5 mg Tab Generic drug: losartan-hydrochlorothiazide Refills: 0 lovastatin 40 mg Tab Commonly known as: MEVACOR Refills: 0 meclizine 25 mg Tab Commonly known as: ANTIVERT Refills: 0 TYLENOL EXTRA STRENGTH 500 mg Tab Generic drug: acetaminophen Refills: 0 ZETIA 10 mg Tab Generic drug: ezetimibe Refills: 0 Updated Allergies and Drug Reactions Allergies Allergen Reactions ??? Mcmahon Ryan Other (See Comments) rhinorrhea Immunizations Given this Hospitalization There is no immunization history on file for this patient. Functional and Cognitive Status Ambulatory and cognitively intact Smoking Status at Discharge History Smoking status ??? Current Every Day Smoker -- 0.50 packs/day Smokeless tobacco ??? Never Used Follow-up Recommendations for Providers Ureteral stent is in place and requires exchange or removal by a urologist. Instructions Given to Patient at Discharge Patient Instructions DISCHARGE INSTRUCTIONS CALL YOUR PHYSICIAN IF: ?? You have a fever greater than 101 degrees F within one month of your surgery. ?? You have diarrhea or vomiting for more than 24 hours, or stop having bowel movements or passing gas. ?? You have worsening pain, not controlled with your pain medication. ?? You are unable to urinate due to blood clots in your bladder. ?? You have any other acute change in your health status. MEDICATIONS You have been prescribed narcotic pain medications (tramadol) to control your discomfort after surgery. You should take acetaminophen (Tylenol) and ibuprofen as baseline pain control, then use the narcotic for severe breakthrough pain control. For baseline pain control: Take ibuprofen 600 mg every 8 hours as needed. Take acetaminophen (Tylenol) 500-1000 mg every 6 hours as needed. For severe pain: Take tramadol every 6-8 hours as needed. Do NOT use alcohol, drive, or operate heavy or complex machinery while taking these medications, as they make impair your ability to perform these activities safely. Narcotic pain medications may cause constipation. Stool softeners, such as Colace; mild laxatives, such as Milk of Magnesia, Sennakot, or Ducolax tabs; or enemas may be used if needed and are euys-fzv-xquuigu medications available at most local pharmacies. Prunes or prune juice, taken daily, can also be helpful for constipation treatment or prevention and are available at most supermarkets. Continue taking the antibiotic (ciprofloxacin) until you have finished the prescription. Important: Do not take aspirin or blood thinners ten days prior to your next surgery, starting 11/25/2014. DRIVING RESTRICTIONS Do not operate a vehicle if you are too sore from surgery to enter or exit your vehicle comfortably,or if you are too sore to easily check your blind spot. No driving while using prescription pain medications. ACTIVITIES No formal restrictions. Your activities may be determined by how well your tolerate the discomfort associated with your stent. Most patients experience some degree of discomfort, and this is normal. Symptoms include flank pain (increased during urination), frequency and urgency of urination, burning or pain in the bladder orurethral with urination, pelvic discomfort, and blood in the urine. To manage your stent symptoms, drink a minimum of 2 L of fluids daily (no carbonated beverages, tea, juice, or sports drinks) and take acetaminophen or ibuprofen. Use narcotics as prescribed. DIET You may resume a regular diet. COMFORT Some patients experience irritation or discomfort associated with the stent. Take your medication asneeded and prescribed. Slowly decrease your use of pain medication as pain lessens. CONTACT INFORMATION To contact your provider or change your appointment, please call the Urology clinic at during business hours or during off-hours. FOLLOW-UP APPOINTMENT You will return for shockwave lithotripsy and stent removal on December 05. We will send you the time. Please remember that you have a ureteral stent in place. A stent is not a permanent device and must be removed as instructed by your urologist; failure to remove a stent may result in the need for moreprocedures. General Instructions [facility] Lithotripsy: Before Your Procedure What is lithotripsy? Lithotripsy is a way to treat kidney stones without surgery. It is also called extracorporeal shock wave lithotripsy, or ESWL. This treatment uses sound waves to break kidney stones into tiny pieces. These pieces can then pass out of the body in the urine. At the clinic or doctor's office, you may get medicine to make you relaxed and help with pain or discomfort. The doctor will use an X-ray to find the stone. You will lie on a table, in most cases on top of a water-filled cushion. The lithotripsy machine directs sound waves at your stone through this cushion. After the machine starts, you may hear a poppingsound and feel a thump at your side. Do not move until you are told to do so. If you have any pain, tell the doctor. The doctor may use a small, flexible tube called a stent. The doctor puts the stent inside the ureter. This is one of the tubes that takes urine from your kidneys to your bladder. The stent will let the stone pass more easily. Your doctor may remove the stent in a few weeks. Most people are at the doctor's office or clinic for about 2 hours. You can go back to your normal routine right away. Most stones pass within 24 hours after the procedure. But it can take as long as several weeks. If you have a large stone, you may need to come back for several treatments. In some cases lithotripsy does not break up the stones. Surgery may be needed to remove them. Follow-up care is a aguilar part of your treatment and safety. Be sure to make and go to all appointments, and call your doctor if you are having problems. It's also a good idea to know your test results and keep a list of the medicines you take. What happens before the procedure? Procedures can be stressful. This information will help you understand what you can expect. And it will help you safely prepare for your procedure. Preparing for the procedure 6. Understand exactly what procedure is planned, along with the risks, benefits, and other options. 7. Tell your doctors ALL the medicines, vitamins, supplements, and herbal remedies you take. Some ofthese can increase the risk of bleeding or interact with anesthesia. 8. If you take blood thinners, such as warfarin (Coumadin), clopidogrel (Plavix), or aspirin, be sure to talk to your doctor. He or she will tell you if you should stop taking these medicines before your procedure. Make sure that you understand exactly what your doctor wants you to do. 9. Your doctor will tell you which medicines to take or stop before your procedure. You may need to stop taking certain medicines a week or more before the procedure. So talk to your doctor as soon as you can. 10. If you have an advance directive, let your doctor know. It may include a living will and a durable power of sign maintenance for health care. Bring a copy to the hospital. If you don't have one, you may want to prepare one. It lets your doctor and loved ones know your health care wishes. Doctors advise that everyone prepare these papers before any type of surgery or procedure. What happens on the day of the procedure? ?? Follow the instructions exactly about when to stop eating and drinking. If you don't, your procedure may be canceled. If your doctor told you to take your medicines on the day of the procedure, takethem with only a sip of water. ?? Take a bath or shower before you come in for your procedure. Do not apply lotions, perfumes, deodorants, or nail bengali. ?? Take off all jewelry and piercings. And take out contact lenses, if you wear them. At the hospital or surgery center ?? Bring a picture ID. ?? You will be kept comfortable and safe by your anesthesia provider. You may get medicine that relaxes you or puts you in a light sleep. The area being worked on will be numb. ?? The procedure will take about 1 hour. Going home ?? Be sure you have someone to drive you home. Anesthesia and pain medicine make it unsafe for you to drive. ?? You will be given more specific instructions about recovering from your procedure. They will cover things like diet, wound care, follow-up care, driving, and getting back to your normal routine. When should you call your doctor? ?? You have questions or concerns. ?? You don't understand how to prepare for your procedure. ?? You become ill before the procedure (such as fever, flu, or a cold). ?? You need to reschedule or have changed your mind about having the procedure. Where can you learn more? Visit our [employer] information library at [email or web address] You can also view health information on [employer]pi, your personal patient account. Log in or sign up today. Enter S604 in the search box to learn more about Lithotripsy: Before Your Procedure. ?? [id number] [employer]. Care instructions adapted under license by [facility]. This care instruction is for use with your licensed healthcare professional. If you have questionsabout a medical condition or this instruction, always ask your healthcare professional. [employer] disclaims any warranty or liability for your use of this information. Content Version: 10.4.650900; Current as of: February 21, 2014 [facility] Ureteral Stent Placement: What to Expect at Home Your Recovery A ureteral (say gju-BWV-mua-ul) stent is a thin, hollow tube that is placed in the ureter to help urine pass from the kidney into the bladder. Ureters are the tubes that connect the kidneys to the bladder. You may have a small amount of blood in your urine for 1 to 3 days after the procedure. While the stent is in place, you may have to urinate more often, feel a sudden need to urinate, or feel like you cannot completely empty your bladder. You may feel some pain when you urinate or do strenuous activity. You also may notice a small amount of blood in your urine after strenuous activities.These side effects usually do not prevent people from doing their normal daily activities. You may have a thin string coming out of your urethra. Your urethra is the tube that carries urine from your bladder to outside your body. This string is attached to the stent. Try not to pull on the string. The doctor will use the string to pull out the stent when you no longer need it. After the procedure, urine may flow better from your kidneys to your bladder. A ureteral stent may be left in place for several days or for as long as several months. Your doctor will take it out when you no longer need it. This care sheet gives you a general idea about how long it will take for you to recover. But each person recovers at a different pace. Follow the steps below to get better as quickly as possible. How can you care for yourself at home? Activity 11. Rest when you feel tired. Getting enough sleep will help you recover. 12. Avoid strenuous activities, such as bicycle riding, jogging, weight lifting, or aerobic exercise, until your doctor says it is okay. 13. Ask your doctor when you can drive again. 14. Most people are able to return to work the day after the procedure. If your work requires intense activity, you may feel pain in your kidney area or get tired easily. If this happens, you may need to do less strenuous activities while the stent is in. 15. Ask your doctor when it is okay for you to have sex. Diet ?? You can eat your normal diet. If your stomach is upset, try bland, low-fat foods like plain rice,broiled chicken, toast, and yogurt. ?? Drink plenty of fluids (unless your doctor tells you not to). Medicines ?? Take pain medicines exactly as directed. ?? If the doctor gave you a prescription medicine for pain, take it as prescribed. ?? If you are not taking a prescription pain medicine, ask your doctor if you can take an gkfq-sav-dfvyajg medicine. ?? If you think your pain medicine is making you sick to your stomach: ?? Take your medicine after meals (unless your doctor has told you not to). ?? Ask your doctor for a different pain medicine. ?? If your doctor prescribed antibiotics, take them as directed. Do not stop taking them just because you feel better. You need to take the full course of antibiotics. Follow-up care is a aguilar part of your treatment and safety. Be sure to make and go to all appointments, and call your doctor if you are having problems. It???s also a good idea to know your test resultsand keep a list of the medicines you take. When should you call for help? Call 911 anytime you think you may need emergency care. For example, call if: ?? You passed out (lost consciousness). ?? You have severe trouble breathing. ?? You have sudden chest pain and shortness of breath, or you cough up blood. ?? You have severe belly pain. Call your doctor now or seek immediate medical care if: ?? Part or all of the stent comes out of your urethra. ?? You have pain that does not get better after you take pain medicine. ?? You have symptoms of a urinary infection. For example: ?? You have blood or pus in your urine. ?? You have pain in your back just below your rib cage. This is called flank pain. ?? You have a fever, chills, or body aches. ?? It hurts to urinate. ?? You have groin or belly pain. ?? You cannot control when you urinate, or you leak urine. Watch closely for changes in your health, and be sure to contact your doctor if you have any problems. Where can you learn more? Visit our health information library at [email or web address] You can also view health information on Respi, your personal patient account. Log in or sign up today. Enter B869 in the search box to learn more about Ureteral Stent Placement: What to Expect at Home. ?? [id number] Relay. Care instructions adapted under license by [facility]. This care instruction is for use with your licensed healthcare professional. If you have questionsabout a medical condition or this instruction, always ask your healthcare professional. [employer] disclaims any warranty or liability for your use of this information. Content Version: 10.4.440505; Current as of: December 17, 2013 CC: PCP: SYED HYMAN MD (General) Referring: [facility] [address] [place] [address] [place] [address] documented in this encounter Discharge Instructions Discharge Gurjit Aguirre MD - 11/22/2014 4:34 PM EDT Images from the original note were not included. [facility] Lithotripsy: Before Your Procedure What is lithotripsy? Lithotripsy is a way to treat kidney stones without surgery. It is also called extracorporeal shock wave lithotripsy, or ESWL. This treatment uses sound waves to break kidney stones into tiny pieces. These pieces can then pass out of the body in the urine. At the clinic or doctor's office, you may get medicine to make you relaxed and help with pain or discomfort. The doctor will use an X-ray to find the stone. You will lie on a table, in most cases on top of a water-filled cushion. The lithotripsy machine directs sound waves at your stone through this cushion. After the machine starts, you may hear a poppingsound and feel a thump at your side. Do not move until you are told to do so. If you have any pain, tell the doctor. The doctor may use a small, flexible tube called a stent. The doctor puts the stent inside the ureter. This is one of the tubes that takes urine from your kidneys to your bladder. The stent will let the stone pass more easily. Your doctor may remove the stent in a few weeks. Most people are at the doctor's office or clinic for about 2 hours. You can go back to your normal routine right away. Most stones pass within 24 hours after the procedure. But it can take as long as several weeks. If you have a large stone, you may need to come back for several treatments. In some cases lithotripsy does not break up the stones. Surgery may be needed to remove them. Follow-up care is a aguilar part of your treatment and safety. Be sure to make and go to all appointments, and call your doctor if you are having problems. It's also a good idea to know your test results and keep a list of the medicines you take. What happens before the procedure? Procedures can be stressful. This information will help you understand what you can expect. And it will help you safely prepare for your procedure. Preparing for the procedure ?? Understand exactly what procedure is planned, along with the risks, benefits, and other options. ?? Tell your doctors ALL the medicines, vitamins, supplements, and herbal remedies you take. Some ofthese can increase the risk of bleeding or interact with anesthesia. ?? If you take blood thinners, such as warfarin (Coumadin), clopidogrel (Plavix), or aspirin, be sure to talk to your doctor. He or she will tell you if you should stop taking these medicines before your procedure. Make sure that you understand exactly what your doctor wants you to do. ?? Your doctor will tell you which medicines to take or stop before your procedure. You may need to stop taking certain medicines a week or more before the procedure. So talk to your doctor as soon as you can. ?? If you have an advance directive, let your doctor know. It may include a living will and a durable power of sign maintenance for health care. Bring a copy to the hospital. If you don't have one, you may want to prepare one. It lets your doctor and loved ones know your health care wishes. Doctors advise that everyone prepare these papers before any type of surgery or procedure. What happens on the day of the procedure? ?? Follow the instructions exactly about when to stop eating and drinking. If you don't, your procedure may be canceled. If your doctor told you to take your medicines on the day of the procedure, takethem with only a sip of water. ?? Take a bath or shower before you come in for your procedure. Do not apply lotions, perfumes, deodorants, or nail bengali. ?? Take off all jewelry and piercings. And take out contact lenses, if you wear them. At the hospital or surgery center ?? Bring a picture ID. ?? You will be kept comfortable and safe by your anesthesia provider. You may get medicine that relaxes you or puts you in a light sleep. The area being worked on will be numb. ?? The procedure will take about 1 hour. Going home ?? Be sure you have someone to drive you home. Anesthesia and pain medicine make it unsafe for you to drive. ?? You will be given more specific instructions about recovering from your procedure. They will cover things like diet, wound care, follow-up care, driving, and getting back to your normal routine. When should you call your doctor? ?? You have questions or concerns. ?? You don't understand how to prepare for your procedure. ?? You become ill before the procedure (such as fever, flu, or a cold). ?? You need to reschedule or have changed your mind about having the procedure. Where can you learn more? Visit our [employer] information library at [email or web address] You can also view health information on Respi, your personal patient account. Log in or sign up today. Enter S604 in the search box to learn more about Lithotripsy: Before Your Procedure. ?? [id number] Relay. Care instructions adapted under license by [facility]. This care instruction is for use with your licensed healthcare professional. If you have questionsabout a medical condition or this instruction, always ask your healthcare professional. [employer] disclaims any warranty or liability for your use of this information. Content Version: 10.4.038465; Current as of: February 21, 2014 [facility] Ureteral Stent Placement: What to Expect at Home Your Recovery A ureteral (say rxq-LKR-jqd-ul) stent is a thin, hollow tube that is placed in the ureter to help urine pass from the kidney into the bladder. Ureters are the tubes that connect the kidneys to the bladder. You may have a small amount of blood in your urine for 1 to 3 days after the procedure. While the stent is in place, you may have to urinate more often, feel a sudden need to urinate, or feel like you cannot completely empty your bladder. You may feel some pain when you urinate or do strenuous activity. You also may notice a small amount of blood in your urine after strenuous activities.These side effects usually do not prevent people from doing their normal daily activities. You may have a thin string coming out of your urethra. Your urethra is the tube that carries urine from your bladder to outside your body. This string is attached to the stent. Try not to pull on the string. The doctor will use the string to pull out the stent when you no longer need it. After the procedure, urine may flow better from your kidneys to your bladder. A ureteral stent may be left in place for several days or for as long as several months. Your doctor will take it out when you no longer need it. This care sheet gives you a general idea about how long it will take for you to recover. But each person recovers at a different pace. Follow the steps below to get better as quickly as possible. How can you care for yourself at home? Activity ?? Rest when you feel tired. Getting enough sleep will help you recover. ?? Avoid strenuous activities, such as bicycle riding, jogging, weight lifting, or aerobic exercise,until your doctor says it is okay. ?? Ask your doctor when you can drive again. ?? Most people are able to return to work the day after the procedure. If your work requires intenseactivity, you may feel pain in your kidney area or get tired easily. If this happens, you may need to do less strenuous activities while the stent is in. ?? Ask your doctor when it is okay for you to have sex. Diet ?? You can eat your normal diet. If your stomach is upset, try bland, low-fat foods like plain rice,broiled chicken, toast, and yogurt. ?? Drink plenty of fluids (unless your doctor tells you not to). Medicines ?? Take pain medicines exactly as directed. ?? If the doctor gave you a prescription medicine for pain, take it as prescribed. ?? If you are not taking a prescription pain medicine, ask your doctor if you can take an jgci-vbt-yhhiult medicine. ?? If you think your pain medicine is making you sick to your stomach: ?? Take your medicine after meals (unless your doctor has told you not to). ?? Ask your doctor for a different pain medicine. ?? If your doctor prescribed antibiotics, take them as directed. Do not stop taking them just because you feel better. You need to take the full course of antibiotics. Follow-up care is a aguilar part of your treatment and safety. Be sure to make and go to all appointments, and call your doctor if you are having problems. It???s also a good idea to know your test resultsand keep a list of the medicines you take. When should you call for help? Call 911 anytime you think you may need emergency care. For example, call if: ?? You passed out (lost consciousness). ?? You have severe trouble breathing. ?? You have sudden chest pain and shortness of breath, or you cough up blood. ?? You have severe belly pain. Call your doctor now or seek immediate medical care if: ?? Part or all of the stent comes out of your urethra. ?? You have pain that does not get better after you take pain medicine. ?? You have symptoms of a urinary infection. For example: ?? You have blood or pus in your urine. ?? You have pain in your back just below your rib cage. This is called flank pain. ?? You have a fever, chills, or body aches. ?? It hurts to urinate. ?? You have groin or belly pain. ?? You cannot control when you urinate, or you leak urine. Watch closely for changes in your health, and be sure to contact your doctor if you have any problems. Where can you learn more? Visit our [employer] information library at [email or web address] You can also view health information on Respi, your personal patient account. Log in or sign up today. Enter B869 in the search box to learn more about Ureteral Stent Placement: What to Expect at Home. ?? [id number] Relay. Care instructions adapted under license by [facility]. This care instruction is for use with your licensed healthcare professional. If you have questionsabout a medical condition or this instruction, always ask your healthcare professional. [employer] disclaims any warranty or liability for your use of this information. Content Version: 10.4.903690; Current as of: December 17, 2013 Patient InstructionsGurjit Fontanez MD - 11/19/2014 10:29 AM EDT DISCHARGE INSTRUCTIONS CALL YOUR PHYSICIAN IF: ?? You have a fever greater than 101 degrees F within one month of your surgery. ?? You have diarrhea or vomiting for more than 24 hours, or stop having bowel movements or passing gas. ?? You have worsening pain, not controlled with your pain medication. ?? You are unable to urinate due to blood clots in your bladder. ?? You have any other acute change in your health status. MEDICATIONS You have been prescribed narcotic pain medications (tramadol) to control your discomfort after surgery. You should take acetaminophen (Tylenol) and ibuprofen as baseline pain control, then use the narcotic for severe breakthrough pain control. For baseline pain control: Take ibuprofen 600 mg every 8 hours as needed. Take acetaminophen (Tylenol) 500-1000 mg every 6 hours as needed. For severe pain: Take tramadol every 6-8 hours as needed. Do NOT use alcohol, drive, or operate heavy or complex machinery while taking these medications, as they make impair your ability to perform these activities safely. Narcotic pain medications may cause constipation. Stool softeners, such as Colace; mild laxatives, such as Milk of Magnesia, Sennakot, or Ducolax tabs; or enemas may be used if needed and are ifuz-rbw-wkimzsg medications available at most local pharmacies. Prunes or prune juice, taken daily, can also be helpful for constipation treatment or prevention and are available at most supermarkets. Continue taking the antibiotic (ciprofloxacin) until you have finished the prescription. Important: Do not take aspirin or blood thinners ten days prior to your next surgery, starting 11/25/2014. DRIVING RESTRICTIONS Do not operate a vehicle if you are too sore from surgery to enter or exit your vehicle comfortably,or if you are too sore to easily check your blind spot. No driving while using prescription pain medications. ACTIVITIES No formal restrictions. Your activities may be determined by how well your tolerate the discomfort associated with your stent. Most patients experience some degree of discomfort, and this is normal. Symptoms include flank pain (increased during urination), frequency and urgency of urination, burning or pain in the bladder orurethral with urination, pelvic discomfort, and blood in the urine. To manage your stent symptoms, drink a minimum of 2 L of fluids daily (no carbonated beverages, tea, juice, or sports drinks) and take acetaminophen or ibuprofen. Use narcotics as prescribed. DIET You may resume a regular diet. COMFORT Some patients experience irritation or discomfort associated with the stent. Take your medication asneeded and prescribed. Slowly decrease your use of pain medication as pain lessens. CONTACT INFORMATION To contact your provider or change your appointment, please call the Urology clinic at during business hours or during off-hours. FOLLOW-UP APPOINTMENT You will return for shockwave lithotripsy and stent removal on December 05. We will send you the time. Please remember that you have a ureteral stent in place. A stent is not a permanent device and must be removed as instructed by your urologist; failure to remove a stent may result in the need for moreprocedures. documented in this encounter Medications at Time of Discharge Medication Sig Dispensed Refills Start Date End Date losartan-hydrochlorothi 0 04/27/2009 azide (HYZAAR) 100-12.5 mg per tablet meclizine (ANTIVERT) 25 0 04/27/2009 mg tablet Multivitamins-Minerals- 0 04/27/2009 Lutein (CENTRUM SILVER) Tab acetaminophen (TYLENOL 0 04/27/2009 EXTRA STRENGTH) 500 mg tablet ciprofloxacin HCl Take 1 tablet by 14 tablet 0 11/22/2014 0 11/29/2014 (CIPRO) 500 mg Tablet mouth 2 times daily for 7 days. traMADol (ULTRAM) 50 mg Take 1 tablet by 30 tablet 0 201401/20/2015 Tablet mouth every 6 hours as needed for Pain (severe). docusate sodium Take 1 capsule by 10 capsule 0 11/20/2014 (COLACE) 100 mg Capsule mouth 2 times daily as needed for Constipation for up to 10 days. ezetimibe (ZETIA) 10 mg 0 04/27/2009 1 tablet lovastatin (MEVACOR) 40 0 04/27/2009 1 mg tablet aspirin 325 mg tablet 0 04/27/2009 documented as of this encounter Progress Notes Mary Hernandez RN - 11/22/2014 5:42 PM EDT IV removed, site benign. My assessment remains unchanged from my previous assessment. Patient denieschest pain or SOB. Discussed pain management. Patient medicated before discharge. Pt voided with minimal PVR prior to discharge (see flowsheet). Patient has all belongings and has received discharge summary. Summary reviewed and all questions answered. Patient encouraged to call with any further questions or concerns. Patient discharged to home with sister. Discharge packet and prescriptions sent home with patient. Lynn Alaniz RN - 11/21/2014 3:20 PM EDT Pt aox4, walking with stand by assist. RA, using IS. VSS.Antibiotics running. Pain in flank, does not request pain meds when offered. 2 BM's today with red streak, MD Beaulieu aware. [place] tinged urine draining significantly, aware. Regular diet. Off tele. Report called to RN, all belongings and meds sent with pt to [address] [place] [address]. Bertha Michelle RN - 11/21/2014 11:22 AM EDT Office of Care Management Cardiovascular Critical Care, ICU [address] [place] [address] Painting Machine Operator SONI Michelle RN, BSN, [facility] Pager # [phone] Record reviewed and patient discussed with director of development and marketingSONI Agee. No discharge needs identified at this time. Painting Machine Operator remains available as needed for coordination of care and discharge planning. Pt lives alone, has one steep flight of stairs with rails to her one level apartment.She says she has lots of plants, but no pets. She plans to stay with her sisters, Carol and Kristi for a few days after hospitalization. Jokes: They plan to lock me up in the garage! Declines VN and SNF at this time. Uses [facility] in [place] [address] Drives, does not use a cane or walker. Needs AD completed, referred to [facility] Martha as pt is transferred to 303 today. Kwame Medrano Jr., MD - 11/21/2014 10:26 AM EDT Urology Inpatient Progress Note ID: Markos Barriga is a 69 y.o. female with a 10 mm LEFT UPJ stone, s/p left ureteral stent placement. 24 hr Events/Subjective: Feels well this AM No fevers No overnight events Lactate normalized after resuscitation Objective: Last value Range last 24hrs Temperature Temp: 36.7 ??C (98.1 ??F) Temp: [36.5 ??C (97.7 ??F)-37.1 ??C (98.8 ??F)] Heart Rate Heart Rate: 95 Heart Rate: [78-95] Blood Pressure BP: 117/82 mmHg BP: (100-129)/(53-82) Respiratory Rate Resp: 15 Resp: [14-21] SpO2 SpO2: 94 % SpO2: [90 %-95 %] room air IN/OUT: PO: 1.0 L IV: 4.3 L UOP: 4.1 L Physical Exam General: NAD, resting comfortably CV: Regular rate Resp: Non labored breathing Abd: soft, non-distended, nontender : juan in place with clear yellow urine Ext: warm and well perfused Labs Recent Labs 11/21/14 0252 11/20/14 0920 11/20/14 0200 11/19/14 2230 WBC 13.6* -- 15.6* 12.7* HGB 10.6* -- 11.9 13.6 HCT 30.9* -- 34.4 38.6 PLATELET 145 -- 170 191 NA 138 138 136 135 K 3.5 Not Perf 2.9* 3.0* CL 102 99 100 97* CO2 24 22 23 21* BUN 16 13 13 15 CREATININE 1.05 1.29* 1.19 1.39* GLUCOSE 121 167 135 136 Lab Results Component Value Date CALCIUM 8.3* 11/21/2014 Imaging No new Microbiology Urine culture 11/19/2014: E. Coli, pansensitive Blood cultures 11/19/2014: NGTD OSH urine culture: E. Coli, pansensitive Assessment/Management/Plan: Markos Barriga is a 69 y.o. female now s/p left ureteral stent placement, POD#2, complicated by post-op by infection, but now doing well. Neuro: Tylenol, oxycodone CV: currently stable Resp: wean O2, IS GI: regular diet : continue monitoring UOP with Juan FEN: replace lytes prn, LR @ 125 cc/hr Endo: no issues Heme: Hgb stable ID: afebrile, narrow antibiotics today based on culture sensitivities Prophylaxis: SQH, SCDs Dispo: transfer to floor, Full code, may be able to discharge tomorrow after narrowing antibiotics today Марина Pereira MD Urology PGY-2 Pager: [phone] МАРИНА PEREIRA MD STAFF ADDENDUM: I saw and examined Markos Barriga with Dr. Pereira and team andagree with history, exam, impression, and plan as noted. final culture results to narrow antibiotic coverage. KWAME MEDRANO JR, MD Alanis Hadley - 11/20/2014 3:00 PM EDT Nutrition Services - Initial Note Markos Barriga : 1945 AGE: 69 y.o. Patient Active Problem List Diagnosis Date Noted ??? Hospital-Hypertension 11/19/2014 ??? Hospital-Benign positional vertigo 11/19/2014 Reason for Nutrition Intervention: Patient eating ICU Diet Order: [facility] Appetite: Good Food allergies: NKFA Chewing/Swallowing difficulty: none Height: 157.5 cm Weight: 34.8 kg Body mass index is 36 kg/(m^2). Assessment: Patient eating well, without difficulty. Patient understands menu and is ordering every day. No questions or concerns at this time. Nutrition Plan: [facility] diet. Recommend Daily Multi Vitamins. Monitor weight. Encourage good po intake. Support and encouragement provided. Nutrition services to follow weekly thru hospital course unless consulted in the interim. ALANIS HADLEY, MAJO Kwame Medrano Jr., MD - 11/20/2014 8:45 AM EDT Urology Inpatient Progress Note ID: Markos Barriga is a 69 y.o. female with a 10 mm LEFT UPJ stone, s/p left ureteral stent placement. 24 hr Events/Subjective: Left ureteral stent placed yesterday Became acutely ill overnight with fevers and hypotension and confusion. Bolused. Cipro broadened to Vanc/Zosyn Transferred to ISCU status Feels well this AM Objective: Last value Range last 24hrs Temperature Temp: 36.8 ??C (98.2 ??F) Temp: [36.4 ??C (97.5 ??F)-38.3 ??C (100.9 ??F)] Heart Rate Heart Rate: 82 Heart Rate: [82-144] Blood Pressure BP: 92/57 mmHg BP: (92-174)/(47-130) Respiratory Rate Resp: 15 Resp: [11-22] SpO2 SpO2: 96 % SpO2: [94 %-97 %] 2 L IN/OUT: PO: 1.1 L IV: 2.4 L UOP: 5.1 L EBL: 0 cc Physical Exam General: NAD, resting comfortably CV: Regular rate Resp: Non labored breathing Abd: soft, non-distended, nontender : juan in place with clear yellow urine Ext: warm and well perfused Labs Recent Labs 11/20/14 0200 11/19/14 2230 11/19/14 0805 WBC 15.6* 12.7* 13.5* HGB 11.9 13.6 14.7 HCT 34.4 38.6 41.5 PLATELET 170 191 239 NA 136 135 137 K 2.9* 3.0* 3.8 CL 100 97* 98 CO2 23 21* 19* BUN 13 15 15 CREATININE 1.19 1.39* 1.47* GLUCOSE 135 136 123 Lab Results Component Value Date CALCIUM 8.4* 11/20/2014 Imaging CXR 11/19/2014: IMPRESSION: No acute cardiopulmonary process appreciated. Microbiology Urine culture 11/19/2014: 1-9K GNRs Blood cultures pending Assessment/Management/Plan: Markos Barriga is a 69 y.o. female now s.p left ureteral stent placement, POD#1, complicated by post-op possible urosepsis. Neuro: Tylenol, oxycodone CV: currently stable Resp: wean O2, IS GI: regular diet : continue monitoring UOP with Juan FEN: replace lytes prn, LR @ 125 cc/hr Endo: no issues Heme: Hgb stable ID: afebrile, Vanc/zosyn, follow culture data Prophylaxis: SQH, SCDs Dispo: stable as ISCU status, Full code Марина Pereira MD Urology PGY-2 Pager: [phone] STAFF ADDENDUM: I saw and examined Markos Barriga with urology team and concur with history, exam, impression, and plan as noted. KWAME MEDRANO JR, MD Cheikh Dean MD - 11/19/2014 11:51 PM EDT Patient with shaking chills, Tachycardia to the 140s and then temp of 38.3. She also became transiently confused. Dr. Tello ordered sepsis bundle workup and patient received a total of 3L in boluses Patient was in NAD A&O when I saw her Tachycardia improved to the 110s Normal breathing effort on 2L NC Abd soft non tender CXR looks fine EKG with sinus tachycardia A/P: Transferred to higher level of care for meeting sepsis criteria F/U blood cultures Abx broadened from cipro to zosyn with one loading dose of Vanc No need for pressors Will trend lactate Will continue fluid resucitation Alvina Tello MD - 11/19/2014 11:15 PM EDT Patient evaluated at bedside at request of nursing as patient had become tachycardic to 140s and hypertensive with systolic BP in 170 range. Per nursing, patient had also become nauseated, was retching, and had chills/rigors. We called IV team to re-establish IV access. On evaluation, patient denied chest pain or shortness of breath. Patient reported feeling generally unwell. She progressed and was confused and unable to respond appropriately to questioning. She remained tachycardic, hypertensive w/O2 sats around 95% but would drop to 91-92% occasionally. I began sepsis work up and contacted urology senior due to concern for deterioration. O: General: Patient appeared in moderate distress; was initially able to respond to questions, but progressed quickly to being confused. Patient was sitting at edge of bed hunched over. CV: S1, S2 w/o murmurs, gallops, or rubs. Tachycardia. Respiratory: Wheezing, but moving air appropriately Abdomen: Mild tenderness R>L Neuro: Patient was not oriented Labs: WBC 12.7 (@2230), 15.6 (0200) K+ 2.7 (@2255), 2.9 (0200) Lactate 3.8 Troponin < 0.03 Results for MARKOS BARRIGA ( ) as of 11/20/2014 02:59 Ref. Range 11/19/2014 22:55 pH Art Latest Range: 7.35-7.45 7.49 (H) pCO2 Art Latest Range: 35-45 mmHg 30 (L) pO2 Art Latest Range: 85-104 mmHg 57 (L) HCO3 Art Latest Range: 20.0-26.0 mmol/L 22.2 BE Art Latest Range: -3.0-3.0 mmol/L -1.2 O2HB Art Latest Range: 94.0-97.0 % 89.4 (L) COHB Art No range found 1.4 METHB Art Latest Range: <=1.5 % 0.0 EKG, CXR unremarkable A/P: Urosepsis - IVF started: 75 ml/hr LR maintenance fluid, total 3 L LR boluses given - Stat labs ordered - CBC, BMP, lactate, ABG, blood cultures x 2, troponins - EKG, CXR ordered - d/c oral cipro; started IV vanc/zosyn - ICU contacted for transfer to ICU vs ISCU - urology administrative operations coordinator came in to evaluate patient - follow blood cultures, trend lactate and BMP - patient was hypokalemic; started IV repletion Aparna Napier RN - 11/19/2014 9:33 PM EDT Patient with shaking chills, HR 120-130's. Temp 37.4 BP 154/47 RR 18 sats 94% on RA. paged. Will be up to see patient. IV team paged to place IV. 2200: here, IV placed HR 140-150 BP 174/130 Please see doc flowsheets for continued VS. Life safety here. Bumper Machine Operator aware. Pt. becoming confused. Speech slurred- having difficulty making sentences.Blood cultures and blood work drawn. 12 lead EKG Done. 2300: T39.2 BP down to 110/54. ABGs done 2315: Patient has received a 1L bolus of LR and one dose of Zosyn. Critical K+ of 2.7 reported to MD. Patient with HR 118-speech clearing, more lucid, resting comfortably at this time. Have paged for astat CXR and done.\[id number]\ Report given to TRENCH DIGGING MACHINE OPERATOR. Aparna Napier RN - 11/19/2014 4:47 PM EDT Patient Name: Markos Barriga Patient Age: 69 y.o. Birthdate: 1945 Admit date: 11/19/2014 Attending Physician: Kwame Medrano Jr., MD Report received from Chana SHAFER. Patient does not have IV access and per RN is OK with MD. Introduced self to patient. Patient is in good spirits, describes intermittent spasms. Admission completed, patient states she no longer takes zetia but does take lovastatin. Also requesting prn meclizine for positional vertigo. Dr. Fontanez paged. Juan patent and draining pink tinged urine. No clots noted at this time. Per Chana Franks RN - 11/19/2014 1:46 PM EDT Patient Name: Markos Barriga Patient Age: 69 y.o. Birthdate: 1945 Admit date: 11/19/2014 Attending Physician: Kwame Medrano Jr., MD Pt arrived from PACU in bed, alert and oriented x 4, denies pain, juan draining light pink urine, no clots. Oriented to room and call light, bed alarm activated. Jono Gerber Rn, Jaimee Horn RN - 11/19/2014 12:[address] Fontanez notified of possibility of IV not working. Reddened area with slight swelling. No bloodreturn. Dr. Fontanez OK with removing, but not replacing IV. Pt. Taking fluids well, not requiring IV pain medications or antibiotics currently. VSS. documented in this encounter H&P Notes Kwame Medrano Jr., MD - 11/19/2014 8:28 AM EDT UROLOGY ED CONSULT NOTE CC LEFT flank pain. HPI Markos Barriga is a 69 y.o. female presenting in transfer from [facility] with LEFT flank pain and a 10 mm LEFT UPJ stone on CT abdomen/pelvis. She developed sharp, intermittent LEFT flank pain, 9/10, radiating to LEFT groin last night. She took aspirin 700 mg without relief of pain. She also noticed somehematuria. She went to OSH, where CT abdomen/pelvis demonstrated a stone in the LEFT UPJ with mild hydronephrosis. WBC 14, Cr 15. She received one dose of ciprofloxacin and was transferred to [facility] for further evaluation. She denies prior episodes like this or history of nephrolithiasis. She is very interested in surgical intervention due to the severity of the pain. Her pain is controlled at 3/10 at this time. Last food was more than 12 hours ago. We have been consulted to evaluate symptomatic LEFT UPJ stone. MEDICAL AND SURGICAL HISTORY HTN Arthritis MEDICATIONS No current facility-administered medications on file prior to encounter. Current Outpatient Prescriptions on File Prior to Encounter Medication Sig Dispense Refill ??? losartan-hydrochlorothiazide (HYZAAR) 100-12.5 mg per tablet ??? ezetimibe (ZETIA) 10 mg tablet ??? lovastatin (MEVACOR) 40 mg tablet ??? meclizine (ANTIVERT) 25 mg tablet ??? aspirin 325 mg tablet ??? Pjbkbmykajmua-Kyocwkpu-Qawage (CENTRUM SILVER) Tab ??? acetaminophen (TYLENOL EXTRA STRENGTH) 500 mg tablet ALLERGIES No Known Allergies SOCIAL HISTORY History Social History ??? Marital Status: Spouse Name: N/A Number of Children: N/A ??? Years of Education: N/A Occupational History ??? Not on file. Social History Main Topics ??? Smoking status: Not on file ??? Smokeless tobacco: Not on file ??? Alcohol Use: Not on file ??? Drug Use: Not on file ??? Sexual Activity: Not on file Other Topics Concern ??? Not on file Social History Narrative ??? No narrative on file FAMILY HISTORY No family history on file. PHYSICAL EXAM Temp: 37 ??C (98.6 ??F) Heart Rate: 108 BP: 98/74 mmHg Resp: 15 GEN: Conversant, NAD. CHEST: Normal work of breathing. CV: 2+ pulses bilaterally. ABD: Soft, obese, NTND. Sharp LEFT CVA tenderness. None on RIGHT. : Voiding spontaneously. EXTR: Moving spontaneously. SKIN: Warm and dry. NEURO: Alert and follows commands. Recent Labs 11/19/14 0805 WBC 13.5* HGB 14.7 HCT 41.5 PLATELET 239 Recent Labs 11/19/14 0805 NA 137 K 3.8 CL 98 CO2 19* BUN 15 CREATININE 1.47* GLUCOSE 123 CALCIUM 9.1 IMAGING 11/19 CT abdomen/pelvis ([facility]). 10 mm LEFT UPJ stone with mild hydronephrosis. Small non-obstructing LEFT renal stone. No stones or hydronephrosis on RIGHT. ASSESSMENT 69 y.o. female with a symptomatic 10 mm LEFT UPJ stone. Clinically stable. She does not appear septic. Pain is controlled at present. We discussed the details, risks, and benefits of expectant management vs stent placement and subsequent ureteroscopy and laser lithotripsy vs shockwave lithotripsy vs percutaneous nephrolithotomy. She understands that a stone of this size is unlikely to pass spontaneously. To treat her acute pain urgently in the setting of a stone of this size and position, we will proceed with ureteral stent placement, followed in 2-3 weeks by ureteroscopy and laser lithotripsy or shockwave lithotripsy for definitive treatment of the stone. She understands that if we are unable to insert the stent successfully, she may require nephrostomy tube placement. We will obtain XR abd today to determine whether the stone could be targeted for SWL. Consent has been obtained for cystourethroscopy and LEFT ureteral stent placement. PLAN ?? NPO. ?? LR 100 mL/hr. ?? Urine for culture. ?? To OR for ureteral stent placement. ?? Expected discharge home after surgery. The plan was explained in detail to the patient, who agreed. All questions were answered to the patient's satisfaction. Gurjit Fontanez MD RESIDENT ADDENDUM: Turbid LEFT renal pelvic urine. Sent for culture. Admit to Urology service for suspected infection, risk of sepsis following manipulation of urinary tract. Continue empiric antibiotics. STAFF ADDENDUM: I saw and examined Markos Barriga with Dr. Fontanez in the ER, have independently reviewed her imaging studies, and agree with history, exam, impression, and plan as noted. I discussed with her clinical suspicion of stone and possibility of pyonephrosis, with plan to admit. KWAME MEDRANO JR, MD documented in this encounter ED Notes Hiram Connell MD - 11/19/2014 9:50 AM EDT ED ATTENDING BRIEF NOTE: This 69 y.o. female was transferred from an outside hospital emergency department to receive specialty care provided by the Urology service for kidney stone. I have reviewed the records from the outside hospital, the patients vitals as recorded in the electronic medical record, and ED nursing notes. Clinical Summary: 69 y.o. with new onset of flank pain. She has no previous history of stones. He began spontaneously, had been severe, although is now improved after medication. She had 2 episodes of associated emesis although she thinks that this may be secondary to anxiety. Focused Exam: Gen: well appearing, NAD Pulm: CTA greg Card: nl s1s2 s m/g/r Abd: soft, nt Skin: warm and dry Neuro: nl gait, speech, balance MS: no tenderness or edema to LEs ED Directed Interventions: I discussed the case with the resident/fellow of the accepting service. The patient was deemed to bestable and not require further involvement from the attending emergency physician at this time. The accepting service has assumed further care of the patient. Please see their notes for any further clinical details and subsequent course. Hiram Connell MD 11/19/14 0952 documented in this encounter Miscellaneous Notes Plan of Care - Rosa Cueva RN - 11/22/2014 6:04 AM EDT Problem: General Plan of Care Goal: Plan of Care Review Outcome: Ongoing (Interventions Implemented as Appropriate) 11/19/14 14211/21/142054 Plan of Care Review Plan of Care Outcome Status ongoing (interventions implemented as appropriate) -- Progress improving -- Coping/Psychosocial Response Interventions Plan of Care Reviewed with -- patient OUTCOME EVALUATION NOTE: OUTCOME SUMMARY: Patient has had a fair night. Pain seems well controlled with prn tramadol. Juan draining large amounts of clear, pink tinged urine. BM x2 overnight. PLAN MOVING FORWARD: Pain control, mobilize with nursing, monitor I&O INDIVIDUALIZED FALL PREVENTION: Assistance: Stand by assist Supervision: Minimal assist when OOB Surveillance: Purposeful rounding, Masimo CPG GOAL OUTCOME EVALUATION: Goal: Individualization and Mutuality Outcome: Ongoing (Interventions Implemented as Appropriate) 11/19/14142011/19/14 1639 Individualization Patient Specific Goals mobilize, advance diet -- Patient Specific Interventions assess pain level, monitor I&O -- Mutuality/Individual Preferences What anxieties, fears or concerns do you have about your health or care? -- none at this time What questions do you have about your health or care? -- none at this t klever What information would help us give you more personalized care? -- nothing Goal: Fall Prevention-Safe Patient Handling Outcome: Ongoing (Interventions Implemented as Appropriate) 11/20/14199911/22/14 0600 Musculoskeletal Interventions Self-Care Promotion -- independence encouraged while providing assistance Activity and Safety Assistive Device Oxygen -- Goal: Discharge Needs Assessment Outcome: Ongoing (Interventions Implemented as Appropriate) 11/19/14 142 Discharge Needs Assessment Concerns to be Addressed no discharge needs identified Readmission Within the Last 30 Days no previous admission in last 30 days Equipment Needed After Discharge none Current Health Anticipated Changes Related to Illness none Self-Care Equipment Currently Used at Home none Living Environment Transportation Available family or friend will provide Problem: Pain, Acute (Adult, Obstetrics) Goal: Identify Signs and Symptoms and Related Risk Factors Signs and symptoms and related risk factors are identified upon initiation of Human Response Clinical Practice Guideline (CPG) Outcome: Ongoing (Interventions Implemented as Appropriate) 11/22/14 0600 Pain, Acute Related Risk Factors (Acute Pain) procedures Signs and Symptoms (Acute Pain) facial mask of pain/grimace;fatigue/weakness;verbalization of pain descriptors Goal: Acceptable Pain Control/Comfort Level Patient will demonstrate the desired outcomes. Outcome: Ongoing (Interventions Implemented as Appropriate) 11/22/14 0600 Pain, Acute (Adult, Obstetrics) Acceptable Pain Control/Comfort Level making progress toward outcome Plan of Care - Selena Buckley RN - 11/21/2014 5:40 PM EDT Problem: General Plan of Care Goal: Plan of Care Review 11/19/14 1421 11/21/14 1141 Plan of Care Review Plan of Care Outcome Status ongoing (interventions implemented as appropriate) -- Progress improving -- Coping/Psychosocial Response Interventions Plan of Care Reviewed with -- patient OUTCOME EVALUATION NOTE: OUTCOME SUMMARY: Pt arrived from ISCU today. Alert and oriented, in minimal pain. Pt mobilized to chair, juan started leaking, juan adjusted and pt was placed back in bed, the position change. Pt with large amount ofurine output, ~800mL/hr this shift. MD aware. Pt encouraged more PO intake, pt hesitant due to flankpain/ spasm. Per MD fluid orders now reflect a 1:1 w/ a max of 100mL/hr. 0.45NS infusing at 100mL/hr. Critical K+ of 3.0, Mg and K+ infusion started and stopped because pt was unable to tolerate them. +BM today. Medicated w/ ultram and tylenol. PLAN MOVING FORWARD: Po intake, pain control INDIVIDUALIZED FALL PREVENTION: Assistance: 1 assist Supervision: Intermittent Surveillance: Lencho, purposeful rounding CPG GOAL OUTCOME EVALUATION: Goal: Individualization and Mutuality 11/19/14 1421 Individualization Patient Specific Goals mobilize, advance diet Patient Specific Interventions assess pain level, monitor I&O Goal: Fall Prevention-Safe Patient Handling 11/21/14 1141 11/21/14 1206 Safety Interventions Safety Precautions/Fall Reduction -- fall reduction program maintained;environmental modification;low bed Musculoskeletal Interventions Activity/Level of Assistance up in room;with 1-person assist -- Positioning independent -- Goal: Discharge Needs Assessment 11/19/14 1421 Discharge Needs Assessment Concerns to be Addressed no discharge needs identified Readmission Within the Last 30 Days no previous admission in last 30 days Current Health Anticipated Changes Related to Illness none Plan of Care - Vivi Davalos RN - 11/21/2014 1:53 AM EDT Problem: General Plan of Care Goal: Plan of Care Review Outcome: Ongoing (Interventions Implemented as Appropriate) 11/19/14 14211/20/14 2200 Plan of Care Review Plan of Care Outcome Status ongoing (interventions implemented as appropriate) -- Progress improving -- Coping/Psychosocial Response Interventions Plan of Care Reviewed with -- patient OUTCOME EVALUATION NOTE: OUTCOME SUMMARY: Pt arrived in iscu 81b at 2200 from ICU. Pt was NSR, BP stable, afebrile, reporting with pain level of 2 but tolerable considering. Juan is draining adequate amounts of pink urine. Pt sat is 95% on 2LNC, lungs are clear. Pt has LR running at 125ml/hr, tolerating well. SCD's are on, pt turns self. Ptwas cooperative during care and expressed wanting to go home. Pt slept between care and remained stable through the night. PLAN MOVING FORWARD: Titrate off oxygen, manage pain, continue to have stable VS's. INDIVIDUALIZED FALL PREVENTION: Bed in low position, call carvalho in reach, pt close to nurse station. Assistance: 1 assist Supervision: RN/FARIDEH Surveillance: Gonzales bedside monitor Goal: Individualization and Mutuality Outcome: Ongoing (Interventions Implemented as Appropriate) 11/19/14 1421 11/19/14 1639 Individualization Patient Specific Goals mobilize, advance diet -- Patient Specific Interventions assess pain level, monitor I&O -- Mutuality/Individual Preferences What anxieties, fears or concerns do you have about your health or care? -- none at this time What questions do you have about your health or care? -- none at this t klever What information would help us give you more personalized care? -- nothing Goal: Fall Prevention-Safe Patient Handling Outcome: Ongoing (Interventions Implemented as Appropriate) 11/20/14199911/20/14219911/21/14 0000 Safety Interventions Safety Precautions/Fall Reduction -- environmental modification;fall reduction program maintained -- Johnson Fall Risk History of Falling -- 25 -- Secondary Diagnosis -- 15 -- Ambulatory Aids -- 0 -- Intravenous Therapy/Heparin/Saline Lock -- 20 -- Gait/Transferring -- 0 -- Mental Status -- 0 -- Score -- 60 -- Activity and Safety Assistive Device Oxygen -- -- OTHER Johnson Fall Risk -- High -- Musculoskeletal Interventions Activity/Level of Assistance -- -- bed rest Positioning -- -- HOB up 30-45 degrees Goal: Discharge Needs Assessment Outcome: Ongoing (Interventions Implemented as Appropriate) 11/19/141420 Discharge Needs Assessment Concerns to be Addressed no discharge needs identified Readmission Within the Last 30 Days no previous admission in last 30 days Equipment Needed After Discharge none Current Health Anticipated Changes Related to Illness none Self-Care Equipment Currently Used at Home none Living Environment Transportation Available family or friend will provide Plan of Care - Chana Franks RN - 11/19/2014 2:21 PM EDT Problem: General Plan of Care Goal: Plan of Care Review Outcome: Ongoing (Interventions Implemented as Appropriate) 11/19/141420 Plan of Care Review Plan of Care Outcome Status ongoing (interventions implemented as appropriate) Progress improving Coping/Psychosocial Response Interventions Plan of Care Reviewed with patient OUTCOME EVALUATION NOTE: OUTCOME SUMMARY: Pt is resting comfortably in bed, alert and oriented x 4, tolerates clear liquids, juan draining light pink urine. PLAN MOVING FORWARD: Assist with mobility, advance diet INDIVIDUALIZED FALL PREVENTION: Assistance: With ADL's and mobility Supervision: While oob Surveillance: Purposeful rounding, pulse oximetry CPG GOAL OUTCOME EVALUATION: Goal: Individualization and Mutuality Outcome: Ongoing (Interventions Implemented as Appropriate) 11/19/141420 Individualization Patient Specific Goals mobilize, advance diet Patient Specific Interventions assess pain level, monitor I&O Goal: Fall Prevention-Safe Patient Handling Outcome: Ongoing (Interventions Implemented as Appropriate) 11/19/14 0949 11/19/14 1150 11/19/14 1338 Safety Interventions Safety Precautions/Fall Reduction -- -- bed alarm;fall reduction program maintained Johnson Fall Risk History of Falling -- -- 25 Secondary Diagnosis -- -- 15 Ambulatory Aids -- -- 0 Intravenous Therapy/Heparin/Saline Lock -- -- 0 Gait/Transferring -- -- 0 Mental Status -- -- 0 Score -- -- 40 OTHER Johnson Fall Risk -- -- Med Musculoskeletal Interventions Activity/Level of Assistance up ad irish -- -- Positioning -- HOB up 30 degrees -- Goal: Infection Control Outcome: Outcome (s) achieved Date Met: 11/19/14 11/19/14 142 Safety Interventions Isolation Precautions standard precautions maintained Infection Prevention environmental surveillance;hydration promoted;nutrition promoted;promote handwashing;rest/sleep promoted Goal: Discharge Needs Assessment Outcome: Ongoing (Interventions Implemented as Appropriate) 11/19/14 1421 Discharge Needs Assessment Concerns to be Addressed no discharge needs identified Readmission Within the Last 30 Days no previous admission in last 30 days Equipment Needed After Discharge none Current Health Anticipated Changes Related to Illness none Self-Care Equipment Currently Used at Home none Living Environment Transportation Available family or friend will provide Op Note - Gurjit Fontanez MD - 11/19/2014 11:51 AM EDT [facility] [place] Patient Name: Markos Barriga : [id number] MR#: [id number] Case Date: 11/19/2014 Surgeon: Surgeon(s) and Role: * Kwame Medrano Jr., MD - Primary * Gurjit Fontanez MD Preoperative diagnosis: 10 mm LEFT UPJ stone Postoperative diagnosis: 10 mm LEFT UPJ stone Procedure(s): CYSTO, STENT PLACEMENT CYSTO, RETROGRADE, URETEROPYELOGRAPHY Anesthesia: General Estimated Blood Loss: none Specimens removed during surgery: left renal pelvic urine Drains: 8 Fr x 24 cm LEFT ureteral stent Surgical Closure: no incision Disposition: awakened from anesthesia, extubated and taken to the recovery room in a stable condition, having suffered no apparent untoward event. Condition: doing well without problems (Please see the Surgical Encounter Summary for any Implant and Specimen details pertinent to this patient.) HPI/Surgical Indications: Markos Barriga is a 69 y.o. female with a symptomatic 10 mm LEFT UPJ stone, presenting for cystourethroscopy and LEFT ureteral stent placement. Procedure Description: The patient was identified in the pre-operative holding area. Consent was verified. The correct sideof the procedure was marked. The patient was taken to the operating room and placed supine on the operating table. General anesthesia was induced. The patient was then moved to the lithotomy position and prepped and draped in the usual sterile fashion. A timeout was performed involving all members of the OR team confirming the patient's identity and planned procedure. Preoperative antibiotics (cefazolin, ciprofloxacin) were administered. A 22 Fr rigid cystoscope was inserted into the bladder. Brief visual inspection revealed bilateral ureteral orifices in orthotopic position and no tumors or masses. A guide wire was passed into the LEFT ureteral orifice without difficulty and visualized on fluoroscopy to be within the renal pelvis. A P ollack catheter was inserted over the guide wire, and the wire was removed. Turbid renal pelvic urine was immediately returned and collected a specimen for culture. Contrast was instilled, and the ureter and renal pelvis were visualized on fluoroscopy without obvious filling defects at the UPJ. The Pollack catheter was then removed and a 8 Fr by 24 cm ureteral stent was passed over the wire. The proximal coil was visualized on fluoroscopy to be within the renal pelvis, and the distal coil was seen with direct visualization in the bladder. The bladder was emptied. The cystoscope was removed. A 16 Fr urethral catheter was inserted with return of light pink output. Ten mL sterile water were instilled in the balloon. The patient tolerated the procedure well and was awakened from anesthesia with no adverse events. The patient was taken to the recovery area in stable condition. Dr. Medrano, the attending surgeon, was present for the entire procedure. Associated attestation - Kwame Medrano Jr., MD - 11/20/2014 2:39 PM EDT Attestation: Case Date: 11/19/2014 I was present and I participated during the entire procedure. KWAME MEDRANO JR, MD 11/20/2014 Brief Op Note - Gurjit Fontanez MD - 11/19/2014 11:49 AM EDT Brief Operative Note Patient Name: Markos Barriga : [id number] MR#: [id number] Case Date: 11/19/2014 Surgeon: Surgeon(s) and Role: * Kwame Medrano Jr., MD - Primary * Gurjit Fontanez MD Preoperative diagnosis: 10 mm LEFT UPJ stone Postoperative diagnosis: 10 mm LEFT UPJ stone Procedure(s): CYSTO, STENT PLACEMENT CYSTO, RETROGRADE, URETEROPYELOGRAPHY Anesthesia: General Findings: 1. Turbid LEFT renal pelvic urine collected as a specimen and sent for culture. 2. UPJ stone not clearly seen on retrograde pyelography. 3. LEFT ureteral stent placement. Complications: none Fluids: see anes report Estimated Blood Loss: none Drains: 8 Fr x 24 cm LEFT ureteral stent Disposition: awakened from anesthesia, extubated and taken to the recovery room in a stable condition, having suffered no apparent untoward event. Condition: doing well without problems (Please see the Surgical Encounter Summary for any Implant and Specimen details pertinent to this patient.) Associated attestation - Kwame Medrano Jr., MD - 11/19/2014 6:46 PM EDT I was present and I participated during the entire procedure. ED Triage - Louann Botello RN - 11/19/2014 7:51 AM EDT Pt presents from [facility] for 10mm L kidney stone with chills, flank pain, and nausea/vomitingfor several days. Pt presents for ?sepsis workup. Pt alert and oriented, skin color pink/warm/dry, respirations even and unlabored. documented in this encounter Plan of Treatment Pending Results Name Type Priority Associated Diagnoses Date/Ti me XR Fluoro OR c-arm Imaging Routine 5 12:35 PM EDT storage only Scheduled Orders Name Type Priority Associated Diagnoses Order S chedule XR Fluoro OR c-arm Imaging Routine Once PRN (for Radiant storage only use) for 1 Occu rrences starting 2014 until 11/19/2014 documented as of this encounter Procedures Procedure Name Priority Date/Time Associated Comments Diagnosis GENERATOR REPAIRER SCAN 11/23/2014 12:00 AM EDT ECG SCAN 11/23/2014 12:00 AM EDT BASIC METABOLIC PANEL Routine 11/22/2014 11:36 Re sults for this (NON-FASTING) AM EDT procedure are in the results section. HEMOGRAM Routine 11/22/2014 3:29 Results for this AM EDT procedure are i n the results section. BASIC METABOLIC PANEL Routine 11/22/2014 3:29 Res ults for this (NON-FASTING) AM EDT procedure are in the results section. MAGNESIUM STAT 11/21/2014 3:33 Results for this PM EDT procedure are i n the results section. BASIC METABOLIC PANEL STAT 11/21/2014 3:33 Res ults for this (NON-FASTING) PM EDT procedure are in the results section. HEMOGRAM Routine 11/21/2014 2:52 Results for this AM EDT procedure are i n the results section. BASIC METABOLIC PANEL Routine 11/21/2014 2:52 Res ults for this (NON-FASTING) AM EDT procedure are in the results section. LACTATE, WHOLE BLOOD, Timed 11/20/2014 9:45 Res ults for this SEND TO LAB ([facility] [place] EDT proce dure are in the results section. LACTATE, WHOLE BLOOD, Routine 11/20/2014 2:50 Res ults for this SEND TO LAB ([facility] [place]) PM EDT proce dure are in the results section. TROPONIN STAT 11/20/2014 11:00 Results for this AM EDT procedure are i n the results section. LACTATE, WHOLE BLOOD, Timed 11/20/2014 9:20 Res ults for this SEND TO LAB ([facility] [place]) AM EDT proce dure are in the results section. TROPONIN STAT 11/20/2014 9:20 Results for this AM EDT procedure are i n the results section. BASIC METABOLIC PANEL STAT 11/20/2014 9:20 Res ults for this (NON-FASTING) AM EDT procedure are in the results section. BLOOD GAS 2 VENOUS Routine 11/20/2014 2:53 Result s for this AM EDT procedure are i n the results section. HEMOGRAM Routine 11/20/2014 2:00 Results for this AM EDT procedure are i n the results section. TROPONIN Routine 11/20/2014 2:00 Results for this AM EDT procedure are i n the results section. BASIC METABOLIC PANEL Routine 11/20/2014 2:00 Res ults for this (NON-FASTING) AM EDT procedure are in the results section. POCT GLUCOSE Routine 11/19/2014 11:50 Results for this PM EDT procedure are i n the results section. XR CHEST ONE VIEW STAT 11/19/2014 11:37 Result s for this PM EDT procedure are i n the results section. BLOOD GAS ARTERIAL ([facility]) Timed 11/19/2014 10:55 Results for this PM EDT procedure are i n the results section. HEMOGRAM STAT 11/19/2014 10:30 Results for this PM EDT procedure are i n the results section. DIFFERENTIAL, AUTOMATED STAT 11/19/2014 10:30 Results for this PM EDT procedure are i n the results section. BLOOD CULTURE STAT 11/19/2014 10:30 Results fo r this PM EDT procedure are i n the results section. CBC (WITH DIFF) STAT 11/19/2014 10:30 PM EDT BASIC METABOLIC PANEL STAT 11/19/2014 10:30 Re sults for this (NON-FASTING) PM EDT procedure are in the results section. EKG 12-LEAD STAT 11/19/2014 10:17 Essential Results for this PM EDT hypertension procedure are i n the results section. BLOOD CULTURE STAT 11/19/2014 10:15 Results fo r this PM EDT procedure are i n the results section. URINE CULTURE Routine 11/19/2014 11:44 Results fo r this AM EDT procedure are i n the results section. CYSTO,RETROGRADE,URETEROP Routine 11/19/2014 11:42 YELOGRAPHY AM EDT CYSTO, RETROGRADE, 11/19/2014 10:50 10 mm LEFT UPJ URETEROPYELOGRAPHY ([facility] AM EDT stone 2.37) CYSTO, STENT PLACEMENT 11/19/2014 10:50 10 mm LEFT UPJ ([facility]U 2.82) AM EDT stone XR ABDOMEN 1 VIEW Routine 11/19/2014 9:14 Results for this AM EDT procedure are i n the results section. CYSTO, STENT PLACEMENT Routine 11/19/2014 8:57 AM EDT URINE CULTURE STAT 11/19/2014 8:47 Results for this AM EDT procedure are i n the results section. HEMOGRAM STAT 11/19/2014 8:05 Results for this AM EDT procedure are i n the results section. BLUE TUBE HOLD STAT 11/19/2014 8:05 Results fo r this AM EDT procedure are i n the results section. BASIC METABOLIC PANEL STAT 11/19/2014 8:05 Res ults for this (NON-FASTING) AM EDT procedure are in the results section. documented in this encounter Results SCAN DOC: GENERATOR REPAIRER (11/23/2014 12:00 AM EDT) Narrative This result has an attachment that is no t available. Scanning Provider MEDIA MGR SCAN EXT ORDR/RSLT SCAN DOC: ECG (11/23/2014 12:00 AM EDT) Narrative This result has an attachment that is no t available. Scanning Provider MEDIA MGR SCAN EXT ORDR/RSLT (ABNORMAL) Basic Metabolic Panel (non-fasting) (11/22/2014 11:36 AM EDT) P athologist Signature Glucose Lvl 104 65 - 199 CERNER mg/dL MILLENNIUM Comment: Diabetes: >=200 mg/dL plus symp toms BUN 6 (L) 8 - 18 mg/dL CERNER MILLENNIUM Creatinine 0.84 0.70 - 1.20 mg/dL CERNER MILL ENNIUM Comment: Please note that the pediatric reference intervals supplied above were not validated at [facility] [place]. Results from pediatri c patients should be interpreted in conjunction to the patient's age, height and muscle mass. Sodium 137 135 - 145 mmol/L CERNER GENNARO NIUM Potassium 3.3 (L) 3.5 - 5.0 mmol/L CERNER GENNARO NIUM Comment: Please note: ??Patients with WBC >100,00 0 may have falsely elevated Potassium levels. ??For accurate Potassium quantif ication in these patients send serum separator tube (gold top) for subsequent determinations. ??Contact the Clinical Chemistry Laboratory if there are any qu estions. Chloride 98 98 - 107 mmol/L CERNER MILLENN IUM CO2 23 22 - 31 mmol/L LUCILLE JAIMESI UM Anion Gap 16 (H) 5 - 15 mmol/L LUCILLE JAIMESIU M Calcium 9.0 8.5 - 10.5 mg/dL LUCILLE GONZALEZEN NIUM Estimated GFR >60 >=60 LUCILLE JAIMESIU M Comment: This estimated GFR (eGFR) value was calc ulated using the MDRD equation which has been validated on patients between t he ages of 18 and 70. The MDRD should not be used to assess kidney function in patients < 18 years of age or in patients with extremes of body mass, or in patients with acute kidney failure. This value should be multiplied by 1.2 f or patients. For further information please copy and past e the following links into your internet browser. http://[email or web address] [email or web address]/DHMCnkf Specimen Anatomical Collection Method Collection Time Receive d Time (Source) Location / / Volume Laterality Blood specimen 11/22/2014 11:36 5 (specimen) AM EDT 11:40 AM EDT Resulting Agency Comment Spec In Lab Kwame Medrano Jr., MD CHEMISTRY ORDERABLES Performing Organization Address City/State/ZIP Code Phon e Number [place] [id number] LUCILLE GONZALEZENNIUM Hemogram (11/22/2014 3:29 AM EDT) P athologist Signature WBC 7.7 4.0 - 10.0 CERNER x10(3)/mcL MILLENNIUM RBC 4.50 3.93 - 5.22 CERNER x10(6)/mcL MILLENNIUM Hemoglobin 13.7 11.2 - 15.7 CERNER gm/dL MILLENNIUM Hematocrit 39.2 34.0 - 45.0 CERNER % MILLENNIUM MCV 87.1 79.0 - 94.0 CERNER fL MILLENNIUM MCH 30.4 26.6 - 32.2 CERNER pg MILLENNIUM MCHC 34.9 32.0 - 36.5 CERNER gm/dL MILLENNIUM Platelets 180 145 - 370 CERNER x10(3)/mcL MILLENNIUM RDWSD 42.0 35.0 - 46.0 CERNER fL MILLENNIUM RDWCV 13.1 10.9 - 14.4 CERNER % MILLENNIUM MPV 9.8 9.0 - 12.0 CERNER fL MILLENNIUM Specimen Anatomical Collection Method Collection Time Receive d Time (Source) Location / / Volume Laterality Blood specimen 11/22/2014 3:29 AM 015 3:36 (specimen) EDT AM EDT Resulting Agency Comment Spec In Lab Kwame Medrano Jr., MD HEMATOLOGY ORDERABLES Performing Organization Address City/State/ZIP [place] [address] CERNER MILLENNIUM (ABNORMAL) Basic Metabolic Panel (non-fasting) (11/22/2014 3:29 AM EDT) athologist Signature Glucose Lvl 108 65 - 199 CERNER mg/dL MILLENNIUM Comment: Diabetes: >=200 mg/dL plus symp toms BUN 6 (L) 8 - 18 mg/dL CERNER MILLENNIUM Creatinine 0.80 0.70 - 1.20 mg/dL CERNER MILL ENNIUM Comment: Please note that the pediatric reference intervals supplied above were not validated at [facility]. Results from pediatri c patients should be interpreted in conjunction to the patient's age, height and muscle mass. Sodium 138 135 - 145 mmol/L CERNER GENNARO NIUM Potassium 3.0 (Critical) 3.5 - 5.0 mmol/L CERNER M ILLENNIUM Comment: Called by: CLAUDIA, Read back by: Rosa Cueva , Date/Time:11/22/14 04:13. result rechecked-CLAUDIA Please note: ??Patients with WBC >100,00 0 may have falsely elevated Potassium levels. ??For accurate Potassium quantif ication in these patients send serum separator tube (gold top) for subsequent determinations. ??Contact the Clinical Chemistry Laboratory if there are any qu estions. Chloride 97 (L) 98 - 107 mmol/L CERNER MILLENN IUM CO2 25 22 - 31 mmol/L CERNER MILLENNI UM Anion Gap 16 (H) 5 - 15 mmol/L CERNER MILLENNIU M Calcium 9.0 8.5 - 10.5 mg/dL CERNER GENNARO NIUM Estimated GFR >60 >=60 CERNER MILLENNIU Balta Comment: This estimated GFR (eGFR) value was calc ulated using the MDRD equation which has been validated on patients between t he ages of 18 and 70. The MDRD should not be used to assess kidney function in patients < 18 years of age or in patients with extremes of body mass, or in patients with acute kidney failure. This value should be multiplied by 1.2 f or patients. For further information please copy and past e the following links into your internet browser. [email or web address] [email or web address]/[facility]kf Specimen Anatomical Collection Method Collection Time Receive d Time (Source) Location / / Volume Laterality Blood specimen 11/22/2014 3:29 AM 015 3:37 (specimen) EDT AM EDT Resulting Agency Comment Spec In Lab Kwame Medrano Jr., MD CHEMISTRY ORDERABLES Performing Organization Address City/State/[place] [address] CERNER MILLENNIUM (ABNORMAL) Basic Metabolic Panel (non-fasting) (11/21/2014 3:33 PM EDT) athologist Signature Glucose Lvl 101 65 - 199 CERNER mg/dL MILLENNIUM Comment: Diabetes: >=200 mg/dL plus symp toms BUN 11 8 - 18 mg/dL CERNER MILLENNIUM Creatinine 1.06 0.70 - 1.20 mg/dL CERNER MILL ENNIUM Comment: Please note that the pediatric reference intervals supplied above were not validated at [facility]. Results from pediatri c patients should be interpreted in conjunction to the patient's age, height and muscle mass. Sodium 140 135 - 145 mmol/L CERNER GENNARO NIUM Potassium 3.0 (Critical) 3.5 - 5.0 mmol/L LUCILLE M ILLENNIUM Comment: Called by: renetta, Read back by: tan russo ix, Date/Time:11/21/14 16:52. Result rechecked. Please note: ??Patients with WBC >100,00 0 may have falsely elevated Potassium levels. ??For accurate Potassium quantif ication in these patients send serum separator tube (gold top) for subsequent determinations. ??Contact the Clinical Chemistry Laboratory if there are any qu estions. Chloride 100 98 - 107 mmol/L CERNER MILLENN IUM CO2 26 22 - 31 mmol/L CERNER MILLENNI UM Anion Gap 14 5 - 15 mmol/L CERNER MILLENNIU M Calcium 8.7 8.5 - 10.5 mg/dL CERNER GENNARO NIUM Estimated GFR 52 (L) >=60 CERNER MILLENNIU M Comment: This estimated GFR (eGFR) value was calc ulated using the MDRD equation which has been validated on patients between t he ages of 18 and 70. The MDRD should not be used to assess kidney function in patients < 18 years of age or in patients with extremes of body mass, or in patients with acute kidney failure. This value should be multiplied by 1.2 f or patients. For further information please copy and past e the following links into your internet browser. [email or web address] [email or web address] Specimen Anatomical Collection Method Collection Time Receive d Time (Source) Location / / Volume Laterality Blood specimen Venous Draw / 11/21/2014 3:33 PM 2014 3:51 (specimen) Unknown EDT PM EDT Resulting Agency Comment Spec In Lab Kwame Medrano Jr., MD CHEMISTRY ORDERABLES Performing Organization Address City/[facility]/ZIP Code Phon e Number [address] CERNER MILLENNIUM Magnesium (11/21/2014 3:33 PM EDT) athologist Signature Magnesium 0.73 0.69 - 1.07 CERNER mmol/L MILLENNIUM Specimen Anatomical Collection Method Collection Time Receive d Time (Source) Location / / Volume Laterality Blood specimen 11/21/2014 3:33 PM 015 3:51 (specimen) EDT PM EDT Resulting Agency Comment Spec In Lab Kwame Medrano Jr., MD CHEMISTRY ORDERABLES Performing Organization Address City/[facility]/ZIP [facility] [place] [address] CERNER MILLENNIUM (ABNORMAL) Basic Metabolic Panel (non-fasting) (11/21/2014 2:52 AM EDT) athologist Signature Glucose Lvl 121 65 - 199 CERNER mg/dL MILLENNIUM Comment: Diabetes: >=200 mg/dL plus symp toms BUN 16 8 - 18 mg/dL CERNER MILLENNIUM Creatinine 1.05 0.70 - 1.20 mg/dL CERNER MILL ENNIUM Comment: Please note that the pediatric reference intervals supplied above were not validated at [facility]. Results from pediatri c patients should be interpreted in conjunction to the patient's age, height and muscle mass. Sodium 138 135 - 145 mmol/L CERNER GENNARO NIUM Potassium 3.5 3.5 - 5.0 mmol/L CERNER GENNARO NIUM Comment: Please note: ??Patients with WBC >100,00 0 may have falsely elevated Potassium levels. ??For accurate Potassium quantif ication in these patients send serum separator tube (gold top) for subsequent determinations. ??Contact the Clinical Chemistry Laboratory if there are any qu estions. Chloride 102 98 - 107 mmol/L CERNER MILLENN IUM CO2 24 22 - 31 mmol/L CERNER MILLENNI UM Anion Gap 12 5 - 15 mmol/L CERNER MILLENNIU M Calcium 8.3 (L) 8.5 - 10.5 mg/dL CERNER GENNARO NIUM Estimated GFR 52 (L) >=60 CERNER MILLENNIU M Comment: This estimated GFR (eGFR) value was calc ulated using the MDRD equation which has been validated on patients between t he ages of 18 and 70. The MDRD should not be used to assess kidney function in patients < 18 years of age or in patients with extremes of body mass, or in patients with acute kidney failure. This value should be multiplied by 1.2 f or patients. For further information please copy and past e the following links into your internet browser. [email or web address] [email or web address]SAnkf Specimen Anatomical Collection Method Collection Time Receive d Time (Source) Location / / Volume Laterality Blood specimen 11/21/2014 2:52 AM 015 3:00 (specimen) EDT AM EDT Resulting Agency Comment Spec In Lab Kwame Medrano Jr., MD CHEMISTRY ORDERABLES Performing Organization Address City/State/[place] [address] CERNER MILLENNIUM (ABNORMAL) Hemogram (11/21/2014 2:52 AM EDT) P athologist Signature WBC 13.6 (H) 4.0 - 10.0 CERNER x10(3)/mcL MILLENNIUM RBC 3.54 (L) 3.93 - CERNER 5.22 MILLENNIUM x10(6)/mcL Hemoglobin 10.6 (L) 11.2 - CERNER 15.7 gm/dL MILLENNIUM Hematocrit 30.9 (L) 34.0 - CERNER 45.0 % MILLENNIUM MCV 87.3 79.0 - CERNER 94.0 fL MILLENNIUM MCH 29.9 26.6 - CERNER 32.2 pg MILLENNIUM MCHC 34.3 32.0 - CERNER 36.5 gm/dL MILLENNIUM Platelets 145 145 - 370 CERNER x10(3)/mcL MILLENNIUM RDWSD 44.0 35.0 - CERNER 46.0 fL MILLENNIUM RDWCV 13.6 10.9 - CERNER 14.4 % MILLENNIUM MPV 9.9 9.0 - 12.0 CERNER fL MILLENNIUM Specimen Anatomical Collection Method Collection Time Receive d Time (Source) Location / / Volume Laterality Blood specimen 11/21/2014 2:52 AM 015 3:00 (specimen) EDT AM EDT Resulting Agency Comment Spec In Lab Kwame Medrano Jr., MD HEMATOLOGY ORDERABLES Performing Organization Address City/[facility]/ZIP Code Phon e Number [address] CERNER MILLENNIUM Lactate, whole blood, send to lab (11/20/2014 9:45 PM EDT) athologist Signature Lactate WB 1.9 0.5 - 2.2 CERNER mmol/L MILLENNIUM Specimen Anatomical Collection Method Collection Time Receive d Time (Source) Location / / Volume Laterality Blood specimen 11/20/2014 9:45 PM 015 9:51 (specimen) EDT PM EDT Resulting Agency Comment Spec In Lab Kwame Medrano Jr., MD CHEMISTRY ORDERABLES Performing Organization Address City/[facility] [place] [address] CERNER MILLENNIUM (ABNORMAL) Lactate, whole blood, send to lab (11/20/2014 2:50 PM EDT) athologist Signature Lactate WB 2.3 (H) 0.5 - 2.2 CERNER mmol/L MILLENNIUM Specimen Anatomical Collection Method Collection Time Receive d Time (Source) Location / / Volume Laterality Blood specimen 11/20/2014 2:50 PM 015 3:00 (specimen) EDT PM EDT Resulting Agency Comment Spec In Lab Kwame Medrano Jr., MD CHEMISTRY ORDERABLES Performing Organization Address City/[facility] Code Phon e Number [address] CERNER MILLENNIUM Troponin T (11/20/2014 11:00 AM EDT) athologist Signature Troponin-T <0.03 <=0.03 CERNER ng/mL [facility] Comment: 0.03 ng/mL: Represents the 99th percenti le upper reference limit for normals. >0.03 ng/mL: Elevated cardiac troponin T level indicative of myocardial damage. Diagnosis of acute, evolving or recent M I requires a typical rise and gradual fall of cTnT with at least ONE of the fo llowing: a) Ischemic symptoms b) Development of pathologic Q waves on the ECG c) ECG changes indicative of eschemia (S -T segment elevation/depression) d) Coronary artery intervention Serial bloods should be obtained for ramiro ting on admission, at 6 to 9 hrs and again at 12 to 24 hrs if earlier samples are negative and the clinical index of suspicion is high. Reference: [Myocardial infarction redefined? a consensus document of the Joint Society of Cardiology/[employer] [place] [employer] o [employer] Committee for the redefinition of myocardial infarction. ? ?Journal of the [place] [employer] 2000; 36: 959-969] Specimen Anatomical Collection Method Collection Time Receive d Time (Source) Location / / Volume Laterality Blood specimen 11/20/2014 11:00 5 (specimen) AM EDT 11:14 AM EDT Resulting Agency Comment Spec In Lab Kwame Medrano Jr., MD CHEMISTRY ORDERABLES Performing Organization Address City/State/ZIP [place] [address] CERNER MILLENNIUM (ABNORMAL) Basic Metabolic Panel (non-fasting) (11/20/2014 9:20 AM EDT) P athologist Signature Glucose Lvl 167 65 - 199 CERNER mg/dL MILLENNIUM Comment: Diabetes: >=200 mg/dL plus symp toms BUN 13 8 - 18 mg/dL CERNER MILLENNIUM Creatinine 1.29 (H) 0.70 - 1.20 mg/dL CERNER MILL ENNIUM Comment: Please note that the pediatric reference intervals supplied above were not validated at [facility]. Results from pediatri c patients should be interpreted in conjunction to the patient's age, height and muscle mass. Sodium 138 135 - 145 mmol/L CERNER GENNARO NIUM Potassium Not Perf 3.5 - 5.0 mmol/L CERNER GENNARO NIUM Comment: Unable to quantitate due to sample hemol ysis. ??Sample redraw suggested. Called by: , Read back by: vianey shipman, Date/Time:11/20/14 10:30. Please note: ??Patients with WBC >100,00 0 may have falsely elevated Potassium levels. ??For accurate Potassium quantif ication in these patients send serum separator tube (gold top) for subsequent determinations. ??Contact the Clinical Chemistry Laboratory if there are any qu estions. Chloride 99 98 - 107 mmol/L CERNER MILLENN IUM CO2 22 22 - 31 mmol/L CERNER MILLENNI UM Anion Gap 17 (H) 5 - 15 mmol/L CERNER MILLENNIU M Calcium 8.6 8.5 - 10.5 mg/dL CERNER GENNARO NIUM Estimated GFR 41 (L) >=60 CERNER MILLENNIU M Comment: This estimated GFR (eGFR) value was calc ulated using the MDRD equation which has been validated on patients between t he ages of 18 and 70. The MDRD should not be used to assess kidney function in patients < 18 years of age or in patients with extremes of body mass, or in patients with acute kidney failure. This value should be multiplied by 1.2 f or patients. For further information please copy and past e the following links into your internet browser. [email or web address] [email or web address]/DHMCnkf Specimen Anatomical Collection Method Collection Time Receive d Time (Source) Location / / Volume Laterality Blood specimen Venous Draw / 11/20/2014 9:20 AM 2014 9:41 (specimen) Unknown EDT AM EDT Resulting Agency Comment Spec In Lab Kwame Medrano Jr., MD CHEMISTRY ORDERABLES Performing Organization Address City/State/ZIP Code Phon e Number [address] CERNER MILLENNIUM Troponin T (11/20/2014 9:20 AM EDT) P athologist Signature Troponin-T Not Perf <=0.03 CERNER ng/mL MILLENNIUM Comment: Unable to quantitate due to sample hemol ysis. ??Sample redraw suggested. Called by: jennifer, Read back by: vianey shipman, Date/Time:11/20/14 10:30. 0.03 ng/mL: Represents the 99th percenti le upper reference limit for normals. >0.03 ng/mL: Elevated cardiac troponin T level indicative of myocardial damage. Diagnosis of acute, evolving or recent M I requires a typical rise and gradual fall of cTnT with at least ONE of the fo llowing: a) Ischemic symptoms b) Development of pathologic Q waves on the ECG c) ECG changes indicative of eschemia (S -T segment elevation/depression) d) Coronary artery intervention Serial bloods should be obtained for ramiro ting on admission, at 6 to 9 hrs and again at 12 to 24 hrs if earlier samples are negative and the clinical index of suspicion is high. Reference: [Myocardial infarction redefined? a consensus document of the Joint Society of Cardiology/[employer] [place] [employer] o f [employer] Committee for the redefinition of myocardial infarction. ? ?Journal of the [employer] [place] [employer] 2000; 36: 959-969] Specimen Anatomical Collection Method Collection Time Receive d Time (Source) Location / / Volume Laterality Blood specimen 11/20/2014 9:20 AM 015 9:41 (specimen) EDT AM EDT Resulting Agency Comment Spec In Lab Kwame Medrano Jr., MD CHEMISTRY ORDERABLES Performing Organization Address City/[facility]/[place] [address] CERNER MILLENNIUM (ABNORMAL) Lactate, whole blood, send to lab (11/20/2014 9:20 AM EDT) athologist Signature Lactate WB 4.3 0.5 - 2.2 CERNER (Critical) mmol/L MILLENNIUM Comment: Results rechecked ??Called by: deidra, Read back by: tj marcelino, Date/Time:11/20/14 09:55. Specimen Anatomical Collection Method Collection Time Receive d Time (Source) Location / / Volume Laterality Blood specimen 11/20/2014 9:20 AM 015 9:41 (specimen) EDT AM EDT Resulting Agency Comment Spec In Lab Kwame Medrano Jr., MD CHEMISTRY ORDERABLES Performing Organization Address [facility]/ZIP Code Phon e Number [address] CERNER MILLENNIUM (ABNORMAL) BLOOD GAS 2 VENOUS (11/20/2014 2:53 AM EDT) athologist Signature pH Kel 7.39 CERNER MILLENNIUM pCO2 Kel 43 mmHg CERNER MILLENNIUM pO2 Kel 33 mmHg CERNER MILLENNIUM HCO3 Kel 25.6 mmol/L CERNER MILLENNIUM BE Kel 0.7 mmol/L CERNER MILLENNIUM Hgb Blood Gas 12.3 gm/dL CERNER MILLENNIUM O2HB Kel 65.4 % CERNER MILLENNIUM COHB Kel 0.4 % CERNER MILLENNIUM Comment: Nonsmokers: 0.5-1.5% COHB Smokers: Variable, but usually less than 10% Toxic: 20-30% COHB Lethal: Greater than 60% COHB METHB Kel 0.5 % CERNER MILLENNIUM Na Whole Blood 136 mmol/L CERNER MILLENNI UM K Whole Blood 3.3 (L) mmol/L CERNER MILLENNIU M Comment: Please note: Patients with WBC >100,000 may have falsely elevated Potassium levels. Contact the Clinical Chemistry L aboratory if there are any questions. ICa Whole Blood 1.16 mmol/L CERNER MILLENN IUM Comment: Note: ??Total bilirubin higher than 20 m g/dL may lead to falsely low ionized calcium. CL Whole Blood 102 mmol/L CERNER MILLENNI UM Gluc Whole Bld 149 mg/dL CERNER MILLENNI UM Comment: Diabetes: >=200 mg/dL plus symp toms Lactate WB 2.4 (H) mmol/L CERNER MILLENNIUM FIO2 Kel 21 % CERNER MILLENNIUM BGas Source Venous CERNER MILLENNIUM Specimen Anatomical Collection Method Collection Time Receive d Time (Source) Location / / Volume Laterality Blood specimen 11/20/2014 2:53 AM 015 2:53 (specimen) EDT AM EDT Kwame Medrano Jr., MD CHEMISTRY ORDERABLES Performing Organization Address City/State/[place] [address] CERNER MILLENNIUM Troponin T (11/20/2014 2:00 AM EDT) athologist Signature Troponin-T <0.03 <=0.03 CERNER ng/mL MILLENNIUM Comment: 0.03 ng/mL: Represents the 99th percenti le upper reference limit for normals. >0.03 ng/mL: Elevated cardiac troponin T level indicative of myocardial damage. Diagnosis of acute, evolving or recent M I requires a typical rise and gradual fall of cTnT with at least ONE of the fo llowing: a) Ischemic symptoms b) Development of pathologic Q waves on the ECG c) ECG changes indicative of eschemia (S -T segment elevation/depression) d) Coronary artery intervention Serial bloods should be obtained for ramiro ting on admission, at 6 to 9 hrs and again at 12 to 24 hrs if earlier samples are negative and the clinical index of suspicion is high. Reference: [Myocardial infarction redefined? a consensus document of the Joint Society of Cardiology/[employer] [place] [employer] o f [employer] Committee for the redefinition of myocardial infarction. ? ?Journal of the [employer] [place] [employer] of [employer] 2000; 36: 959-969] Specimen Anatomical Collection Method Collection Time Receive d Time (Source) Location / / Volume Laterality Blood specimen Venous Draw / 11/20/2014 2:00 AM 2014 2:08 (specimen) Unknown EDT AM EDT Resulting Agency Comment Spec In Lab Kwame Medrano Jr., MD CHEMISTRY ORDERABLES Performing Organization Address City/State/ZIP [place] [address] CERNER MILLENNIUM (ABNORMAL) Basic Metabolic Panel (non-fasting) (11/20/2014 2:00 AM EDT) athologist Signature Glucose Lvl 135 65 - 199 CERNER mg/dL MILLENNIUM Comment: Diabetes: >=200 mg/dL plus symp toms BUN 13 8 - 18 mg/dL CERNER MILLENNIUM Creatinine 1.19 0.70 - 1.20 mg/dL CERNER MILL ENNIUM Comment: Please note that the pediatric reference intervals supplied above were not validated at [facility]. Results from pediatri c patients should be interpreted in conjunction to the patient's age, height and muscle mass. Sodium 136 135 - 145 mmol/L CERNER GENNARO NIUM Potassium 2.9 (Critical) 3.5 - 5.0 mmol/L CERNER M ILLENNIUM Comment: Called by: cony, Read back by: Brett anderson, Date/Time:11/20/14 02:57. Please note: ??Patients with WBC >100,00 0 may have falsely elevated Potassium levels. ??For accurate Potassium quantif ication in these patients send serum separator tube (gold top) for subsequent determinations. ??Contact the Clinical Chemistry Laboratory if there are any qu estions. Chloride 100 98 - 107 mmol/L CERNER MILLENN IUM CO2 23 22 - 31 mmol/L CERNER MILLENNI UM Anion Gap 13 5 - 15 mmol/L CERNER MILLENNIU M Calcium 8.4 (L) 8.5 - 10.5 mg/dL CERNER GENNARO NIUM Estimated GFR 45 (L) >=60 CERNER MILLENNIU M Comment: This estimated GFR (eGFR) value was calc ulated using the MDRD equation which has been validated on patients between t he ages of 18 and 70. The MDRD should not be used to assess kidney function in patients < 18 years of age or in patients with extremes of body mass, or in patients with acute kidney failure. This value should be multiplied by 1.2 f or patients. For further information please copy and past e the following links into your internet browser. http://Colppy/DHnkdep http://Colppy/DHMCnkf Specimen Anatomical Collection Method Collection Time Receive d Time (Source) Location / / Volume Laterality Blood specimen 11/20/2014 2:00 AM 015 2:08 (specimen) EDT AM EDT Resulting Agency Comment Spec In Lab Kwame Medrano Jr., MD CHEMISTRY ORDERABLES Performing Organization Address City/[facility]/ZIP [place] [address] CERNER MILLENNIUM (ABNORMAL) Hemogram (11/20/2014 2:00 AM EDT) P athologist Signature WBC 15.6 (H) 4.0 - 10.0 CERNER x10(3)/mcL MILLENNIUM RBC 3.96 3.93 - CERNER 5.22 MILLENNIUM x10(6)/mcL Hemoglobin 11.9 11.2 - CERNER 15.7 gm/dL MILLENNIUM Hematocrit 34.4 34.0 - CERNER 45.0 % MILLENNIUM MCV 86.9 79.0 - CERNER 94.0 fL MILLENNIUM MCH 30.1 26.6 - CERNER 32.2 pg MILLENNIUM MCHC 34.6 32.0 - CERNER 36.5 gm/dL MILLENNIUM Platelets 170 145 - 370 CERNER x10(3)/mcL MILLENNIUM RDWSD 42.9 35.0 - CERNER 46.0 fL MILLENNIUM RDWCV 13.4 10.9 - CERNER 14.4 % MILLENNIUM MPV 9.9 9.0 - 12.0 CERNER fL MILLENNIUM Specimen Anatomical Collection Method Collection Time Receive d Time (Source) Location / / Volume Laterality Blood specimen 11/20/2014 2:00 AM 015 2:08 (specimen) EDT AM EDT Resulting Agency Comment Spec In Lab Kwame Medrano Jr., MD HEMATOLOGY ORDERABLES Performing Organization Address City/[facility]/ZIP Code Phon e Number [place] CERNER MILLENNIUM POCT Glucose (11/19/2014 11:50 PM EDT) P athologist Signature POC Glucose 122 65 - 199 CERNER mg/dL Comment: Supplemental ranges: <140 mg/dL before meals <180 mg/dL all other times of the day Specimen Anatomical Collection Method Collection Time Receive d Time (Source) Location / / Volume Laterality Blood specimen 11/19/2014 11:50 5 (specimen) PM EDT 11:50 PM EDT Kwame Medrano Jr., MD POINT OF CARE TEST ORDERABLE S Performing Organization Address City/State/ZIP Code Phon e Number ASIA [address] CERSASHA NoquoENNIUM XR chest PA or AP- 1 view (11/19/2014 11:37 PM EDT) Anatomical Region Laterality Modality Chest N/A Radiographic Imaging Specimen (Source) Anatomical Collection Method Collection Time Re ceived Time Location / / Volume Laterality 11/19/2014 11:37 PM EDT Impressions 11/20/2014 7:46 AM EDT IMPRESSION: No acute cardiopulmonary process appreci ated. This report was reviewed by Abdullahi Tapia at 11/20/2014 7:41 AM Film and interpretation reviewed by the attending Narrative 11/20/2014 7:46 AM EDT EXAMINATION: CHEST ONE VIEW/XPORT CLINICAL HISTORY: Urosepsis TECHNIQUE: AP semiupright chest 2330 kobe rs COMPARISON: None COMMENTS: Portable technique, semierect positioning, patient rotation, submaximal inspiration, underpenetration , monitor leads overlying the chest wall render suboptimal assessment; within the se confines: FINDINGS: Bibasilar streaky atelectasis and/or sca rring. No confluent airspace opacity seen. No pleural effusion or pneumothora x definitively identified, although sensitivity diminished due to semierect positioning. Cardiomediastinal silhouette is normal. Trachea midline Th e descending aorta is tortuous. No osseous degenerative changes. No externa l soft tissue adenopathy seen. Procedure Note Abdullahi Tapia MD - 11/20/2014 EXAMINATION: CHEST ONE VIEW/XPORT CLINICAL HISTORY: Urosepsis TECHNIQUE: AP semiupright chest 2330 kobe rs COMPARISON: None COMMENTS: Portable technique, semierect positioning, patient rotation, submaximal inspiration, underpenetration , monitor leads overlying the chest wall render suboptimal assessment; within the se confines: FINDINGS: Bibasilar streaky atelectasis and/or sca rring. No confluent airspace opacity seen. No pleural effusion or pneumothora x definitively identified, although sensitivity diminished due to semierect positioning. Cardiomediastinal silhouette is normal. Trachea midline Th e descending aorta is tortuous. No osseous degenerative changes. No externa l soft tissue adenopathy seen. IMPRESSION IMPRESSION: No acute cardiopulmonary process appreci ated. This report was reviewed by Abdullahi Tapia at 11/20/2014 7:41 AM Film and interpretation reviewed by the attending Kwame Medrano Jr., MD IMG DX ORDERABLES (ABNORMAL) Blood Gas Arterial (11/19/2014 10:55 PM EDT) Analysis Performed At Patho logist Time Signature pH Art 7.49 (H) 7.35 - CERNER 7.45 MILLENNIUM pCO2 Art 30 (L) 35 - 45 CERNER mmHg MILLENNIUM pO2 Art 57 (L) 85 - 104 CERNER mmHg MILLENNIUM HCO3 Art 22.2 20.0 - CERNER 26.0 MILLENNIUM mmol/L BE Art -1.2 -3.0 - 3.0 CERNER mmol/L MILLENNIUM Hgb Blood Gas 12.7 11.2 - CERNER 15.7 gm/dL MILLENNIUM O2HB Art 89.4 (L) 94.0 - CERNER 97.0 % MILLENNIUM COHB Art 1.4 % CERNER MILLENNIUM Comment: Nonsmokers: ??0.5-1.5% COHB Smokers: ??Variable, but usually less th an 10% Toxic: 20 - 30% COHB Lethal: ??Greater than 60% COHB METHB Art 0.0 <=1.5 % CERNER MILLENNIUM Na Whole Blood 134 (L) 135 - 145 mmol/L CERNER M ILLENNIUM K Whole Blood 2.7 (Critical) 3.5 - 5.0 mmol/L CERN ER MILLENNIUM Comment: Called by: cony, Read back by: Aparna Perez omb, Date/Time:11/19/14 23:11. Please note: ??Patients with WBC >100,00 0 may have falsely elevated Potassium levels. ??Contact the Clinical Chemistry Laboratory if there are any questions. ICa Whole Blood 1.15 1.15 - 1.33 mmol/L CERNE R MILLENNIUM Comment: Note: ??Total bilirubin higher than 20 m g/dL may lead to falsely low ionized calcium. CL Whole Blood 103 98 - 107 mmol/L CERNER AZ LLENNIUM Gluc Whole Bld 132 65 - 199 mg/dL CERNER MIL LENNIUM Comment: Diabetes: >=200 mg/dL plus symp toms. Lactate WB 3.8 (H) 0.5 - 2.2 mmol/L CERNER MILLE NNIUM Specimen Anatomical Collection Method Collection Time Receive d Time (Source) Location / / Volume Laterality Blood specimen Arterial Draw / 11/19/2014 10:55 2014 (specimen) Unknown PM EDT 11:06 PM EDT Resulting Agency Comment Spec In Lab Alvina Tello MD CHEMISTRY ORDERABLES Performing Organization Address City/State/[place] [address] CERNER MILLENNIUM (ABNORMAL) Differential, Automated (11/19/2014 10:30 PM EDT) [facility] Method Time Signature Neutrophils % 93.9 % CERNER MILLENNIUM Neutr Abs (ANC) 11.95 (H) 1.50 - CERNER 6.30 MILLENNIUM x10(3)/mc L Lymphocytes % 3.7 % CERNER MILLENNIUM Lymphocytes Abs 0.5 (L) 1.0 - 3.6 CERNER x10(3)/mc MILLENNIUM L Monocytes % 1.7 % CERNER MILLENNIUM Monocyte Abs 0.2 0.2 - 1.0 CERNER x10(3)/mc MILLENNIUM L Eosinophils % 0.0 % CERNER MILLENNIUM Eosinophils Abs 0.0 0.0 - 0.5 CERNER x10(3)/mc MILLENNIUM L Basophils % 0.1 % CERNER MILLENNIUM Basophils Abs 0.0 0.0 - 0.2 CERNER x10(3)/mc MILLENNIUM L Immature Gran % 0.60 % CERNER MILLENNIUM Comment: Immature granulocytes(IG's)percentage an d absolute count will include metamyelocytes, myelocytes, and promyelo cytes. Blood smears from CBCs yielding IG's will be scanned manually for concor dance. If this scan disagrees with the automated IG or if promyelocytes are not ed, a manual differential will be performed. Day Gran Abs 0.07 (H) 0.00 - 0.05 x10(3)/mcL CER NER MILLENNIUM Specimen Anatomical Collection Method Collection Time Receive d Time (Source) Location / / Volume Laterality Blood specimen 11/19/2014 10:30 5 (specimen) PM EDT 10:58 PM EDT Resulting Agency Comment Spec In Lab Kwame Medrano Jr., MD HEMATOLOGY ORDERABLES Performing Organization Address City/State/[place] [address] CERNER MILLENNIUM (ABNORMAL) Hemogram (11/19/2014 10:30 PM EDT) P athologist Signature WBC 12.7 (H) 4.0 - 10.0 CERNER x10(3)/mcL MILLENNIUM RBC 4.43 3.93 - CERNER 5.22 MILLENNIUM x10(6)/mcL Hemoglobin 13.6 11.2 - CERNER 15.7 gm/dL MILLENNIUM Hematocrit 38.6 34.0 - CERNER 45.0 % MILLENNIUM MCV 87.1 79.0 - CERNER 94.0 fL MILLENNIUM MCH 30.7 26.6 - CERNER 32.2 pg MILLENNIUM MCHC 35.2 32.0 - CERNER 36.5 gm/dL MILLENNIUM Platelets 191 145 - 370 CERNER x10(3)/mcL MILLENNIUM RDWSD 42.1 35.0 - CERNER 46.0 fL MILLENNIUM RDWCV 13.1 10.9 - CERNER 14.4 % MILLENNIUM MPV 9.9 9.0 - 12.0 CERNER fL MILLENNIUM Specimen Anatomical Collection Method Collection Time Receive d Time (Source) Location / / Volume Laterality Blood specimen 11/19/2014 10:30 08/12/201 5 (specimen) PM EDT 10:58 PM EDT Resulting Agency Comment Spec In Lab Kwame Medrano Jr., MD HEMATOLOGY ORDERABLES Performing Organization Address City/[facility]/[place] [address] CERNER MILLENNIUM Blood culture (11/19/2014 10:30 PM EDT) Patholo gist Method Time Signature Blood Culture No growth CERNER at 5 days. MILLENNIUM Specimen Anatomical Collection Method Collection Time Receive d Time (Source) Location / / Volume Laterality Blood specimen 11/19/2014 10:30 5 (specimen) PM EDT 11:06 PM EDT Resulting Agency Comment Spec In Lab Kwame Medrano Jr., MD MICROBIOLOGY - BLOOD ORDERAB LES Performing Organization Address City/[facility]/[place] [address] CERNER MILLENNIUM (ABNORMAL) Basic Metabolic Panel (non-fasting) (11/19/2014 10:30 PM EDT) P athologist Signature Glucose Lvl 136 65 - 199 CERNER mg/dL MILLENNIUM Comment: Diabetes: >=200 mg/dL plus symp toms BUN 15 8 - 18 mg/dL CERNER MILLENNIUM Creatinine 1.39 (H) 0.70 - 1.20 mg/dL CERNER MILL ENNIUM Comment: Please note that the pediatric reference intervals supplied above were not validated at [facility]. Results from pediatri c patients should be interpreted in conjunction to the patient's age, height and muscle mass. Sodium 135 135 - 145 mmol/L CERNER GENNARO NIUM Potassium 3.0 (Critical) 3.5 - 5.0 mmol/L CERNER M ILLENNIUM Comment: Results rechecked. Called by: [facility], Read back by: Maira Malone, Date/Time:11/19/14 23:43. Please note: ??Patients with WBC >100,00 0 may have falsely elevated Potassium levels. ??For accurate Potassium quantif ication in these patients send serum separator tube (gold top) for subsequent determinations. ??Contact the Clinical Chemistry Laboratory if there are any qu estions. Chloride 97 (L) 98 - 107 mmol/L CERNER MILLENN IUM CO2 21 (L) 22 - 31 mmol/L LUCILLE GONZALEZENNI UM Anion Gap 17 (H) 5 - 15 mmol/L LUCILLE JAIMESIU M Calcium 9.1 8.5 - 10.5 mg/dL LUCILLE BURDICK NIUM Estimated GFR 38 (L) >=60 LUCILLE JAIMESIU M Comment: This estimated GFR (eGFR) value was calc ulated using the MDRD equation which has been validated on patients between t he ages of 18 and 70. The MDRD should not be used to assess kidney function in patients < 18 years of age or in patients with extremes of body mass, or in patients with acute kidney failure. This value should be multiplied by 1.2 f or patients. For further information please copy and past e the following links into your internet browser. http://Colppy/DHnkdep http://Colppy/DHMCnkf Specimen Anatomical Collection Method Collection Time Receive d Time (Source) Location / / Volume Laterality Blood specimen 11/19/2014 10:30 5 (specimen) PM EDT 10:58 PM EDT Resulting Agency Comment Spec In Lab Kwame Medrano Jr., MD CHEMISTRY ORDERABLES Performing Organization Address City/State/[place] [address] LUCILLE GERBER EKG 12 Lead (11/19/2014 10:17 PM EDT) Component Value Ref Range Test Analysis Performed Pathologis t Method Time At Signature Ventricular rate 137 BPM MUSE SYSTEM Atrial Rate 137 BPM MUSE SYSTEM P-R Interval 128 ms MUSE SYSTEM QRS Duration 88 ms MUSE SYSTEM Q-T Interval 344 ms MUSE SYSTEM QTC Calculated 519 ms MUSE SYSTEM (Bezet) Calculated R [place] 18 degrees MUSE SYSTEM Calculated T [place] 49 degrees MUSE SYSTEM INTERPRETATION Sinus tachycardia MUSE SY STEM Nonspecific ST abnormality Abnormal ECG No previous ECGs available Confirmed by MD PALM EDWARD ([id number]) on 11/20/2014 8:16:1 2 AM Specimen Anatomical Collection Method Collection Time Receive d Time (Source) Location / / Volume Laterality 11/19/2014 10:17 11/20/2014 8:16 PM EDT AM EDT Kwame Medrano Jr., MD ECG ORDERABLES Performing Organization Address City/State/ZIP Code Phon e Number MUSE SYSTEM Blood culture (11/19/2014 10:15 PM EDT) [facility] Method Time Signature Blood Culture No growth CERNER at 5 days. MILLENNIUM Specimen Anatomical Collection Method Collection Time Receive d Time (Source) Location / / Volume Laterality Blood specimen 11/19/2014 10:15 5 (specimen) PM EDT 10:39 PM EDT Resulting Agency Comment Spec In Lab Kwame Medrano Jr., MD MICROBIOLOGY - BLOOD ORDERAB LES Performing Organization Address City/[facility] [place] [address] CERNER MILLENNIUM (ABNORMAL) Urine culture Cystoscopic Urine (11/19/2014 11:44 AM EDT) [facility] Method Time Signature Urine Culture 1,000-9,000 CERNER cfu/ml MILLENNIUM Escherichia coli (A) Gram Stain Many White Blood Cells seen C ERNER Many Gram Negative Rods seen M ILLENNIUM (A) Organism Escherichia CERNER coli (A) MILLENNIUM Organism Gram Negative CERNER Rods (A) MILLENNIUM Specimen Anatomical Collection Method Collection Time Receive d Time (Source) Location / / Volume Laterality Urine specimen 11/19/2014 11:44 5 (specimen) AM EDT 11:47 AM EDT Resulting Agency Comment Spec In Lab Organism Antibiotic Method Susceptibility Escherichia coli Ampicillin MICROSCAN METHOD Sensitive Escherichia coli Ampicillin + Sulbactam MICROSCAN METHOD Sensiti ve Escherichia coli Aztreonam MICROSCAN METHOD Sensitive Escherichia coli Cefazolin MICROSCAN METHOD Sensitive Escherichia coli Cefepime MICROSCAN METHOD Sensitive Escherichia coli Ceftazidime MICROSCAN METHOD Sensitive Escherichia coli Ceftriaxone MICROSCAN METHOD Sensitive Escherichia coli Cefuroxime MICROSCAN METHOD Sensitive Escherichia coli Ciprofloxacin MICROSCAN METHOD Sensitive Escherichia coli Gentamicin MICROSCAN METHOD Sensitive Escherichia coli Levofloxacin MICROSCAN METHOD Sensitive Escherichia coli Meropenem MICROSCAN METHOD Sensitive Escherichia coli Nitrofurantoin MICROSCAN METHOD Sensitive Escherichia coli Piperacillin/Tazobactam MICROSCAN METHOD Sensit robin Escherichia coli Tetracycline MICROSCAN METHOD Sensitive Escherichia coli Tobramycin MICROSCAN METHOD Sensitive Escherichia coli Trimethoprim/Sulfa MICROSCAN METHOD Sensitive Kwame Medrano Jr., MD MICROBIOLOGY - GENERAL ORDER QUIN Performing Organization Address City/State/ZIP Code Phon e Number ASIA [place] [id number] LUCILLE [employer] Rob[employer]IUM XR abdomen 1 view (11/19/2014 9:14 AM EDT) Anatomical Region Laterality Modality Abdomen N/A Radiographic Imaging Specimen (Source) Anatomical Collection Method Collection Time Re ceived Time Location / / Volume Laterality 11/19/2014 9:14 AM EDT Impressions 11/19/2014 11:57 AM EDT IMPRESSION: 10 mm density in the expected position o f the left UPJ, likely corresponds to the previously visualized calculus. This report was reviewed by Marylou lau at 11/19/2014 11:52 AM Film and interpretation reviewed by the attending Narrative 11/19/2014 11:57 AM EDT EXAMINATION: ABDOMEN SINGLE VIEW CLINICAL HISTORY: 10 mm L UPJ stone; nasreen l visualization on XR for poss SWL therapy TECHNIQUE: Frontal supine views of the [facility] COMPARISON: CT of the abdomen 11/19/2014 FINDINGS: There is a 10 mm density in the expected location of the left UPJ junction, proximal ureter, that corresponds to the previously seen [address] from 11/19/2014. No dilated loops of dhruv l are seen. Scattered phleboliths are present in the mid pelvis. Visualized os seous structures are unremarkable. Procedure Note Marylou Ma MD - 11/19/2014Formatt ing of this note might be different from the original. EXAMINATION: ABDOMEN SINGLE VIEW CLINICAL HISTORY: 10 mm L UPJ stone; nasreen l visualization on XR for poss SWL therapy TECHNIQUE: Frontal supine views of the [facility] COMPARISON: CT of the abdomen 11/19/2014 FINDINGS: There is a 10 mm density in the expected location of the left UPJ junction, proximal ureter, that corresponds to the previously seen [address] from 11/19/2014. No dilated loops of dhruv l are seen. Scattered phleboliths are present in the mid pelvis. Visualized os seous structures are unremarkable. IMPRESSION IMPRESSION: 10 mm density in the expected position o f the left UPJ, likely corresponds to the previously visualized calculus. This report was reviewed by Marylou lau at 11/19/2014 11:52 AM Film and interpretation reviewed by the attending Kwame Medrano Jr., MD IMG DX ORDERABLES Urine culture Clean Catch Urine (11/19/2014 8:47 AM EDT) [facility] gist Method Time Signature Urine Culture No growth [facility] (Less than MILLENNIUM 1,000 cfu/ml). Specimen (Source) Anatomical Collection Method Collection Time Re ceived Time Location / / Volume Laterality Urine specimen 11/19/2014 8:47 11/19/2014 9:04 obtained by clean AM EDT AM EDT catch procedure (specimen) Resulting Agency Comment Spec In Lab Kwame Medrano Jr., MD MICROBIOLOGY - GENERAL ORDER QUIN Performing Organization Address City/[facility]/ZIP [facility] [place] Phon e Number [address] [facility] MILLENNIUM Blue Tube HOLD (11/19/2014 8:05 AM EDT) athologist Signature Blue Hold Sample in [facility] lab. [facility] Specimen Anatomical Collection Method Collection Time Receive d Time (Source) Location / / Volume Laterality Blood specimen Venous Draw / 11/19/2014 8:05 AM 2014 8:15 (specimen) Unknown EDT AM EDT Kwame Medrano Jr., MD HEMATOLOGY ORDERABLES Performing Organization Address City/[facility]/ZIP Code Phon e Number [address] CERNER MILLENNIUM (ABNORMAL) Basic Metabolic Panel (non-fasting) (11/19/2014 8:05 AM EDT) athologist Signature Glucose Lvl 123 65 - 199 CERNER mg/dL MILLENNIUM Comment: Diabetes: >=200 mg/dL plus symp toms BUN 15 8 - 18 mg/dL CERNER MILLENNIUM Creatinine 1.47 (H) 0.70 - 1.20 mg/dL CERNER MILL ENNIUM Comment: Please note that the pediatric reference intervals supplied above were not validated at [facility]. Results from pediatri c patients should be interpreted in conjunction to the patient's age, height and muscle mass. Sodium 137 135 - 145 mmol/L CERNER GENNARO NIUM Potassium 3.8 3.5 - 5.0 mmol/L CERNER GENNARO NIUM Comment: Please note: ??Patients with WBC >100,00 0 may have falsely elevated Potassium levels. ??For accurate Potassium quantif ication in these patients send serum separator tube (gold top) for subsequent determinations. ??Contact the Clinical Chemistry Laboratory if there are any qu estions. Chloride 98 98 - 107 mmol/L CERNER MILLENN IUM CO2 19 (L) 22 - 31 mmol/L CERNER MILLENNI UM Anion Gap 20 (H) 5 - 15 mmol/L CERNER MILLENNIU M Calcium 9.1 8.5 - 10.5 mg/dL CERNER GENNARO NIUM Estimated GFR 35 (L) >=60 CERNER MILLENNIU M Comment: This estimated GFR (eGFR) value was calc ulated using the MDRD equation which has been validated on patients between t he ages of 18 and 70. The MDRD should not be used to assess kidney function in patients < 18 years of age or in patients with extremes of body mass, or in patients with acute kidney failure. This value should be multiplied by 1.2 f or patients. For further information please copy and past e the following links into your internet browser. http://Colppy/DHnkdep http://Colppy/DHMCnkf Specimen Anatomical Collection Method Collection Time Receive d Time (Source) Location / / Volume Laterality Blood specimen 11/19/2014 8:05 AM 015 8:13 (specimen) EDT AM EDT Resulting Agency Comment Spec In Lab Kwame Medrano Jr., MD CHEMISTRY ORDERABLES Performing Organization Address City/State/ZIP [place] [address] CERNER MILLENNIUM (ABNORMAL) Hemogram (11/19/2014 8:05 AM EDT) P athologist Signature WBC 13.5 (H) 4.0 - 10.0 CERNER x10(3)/mcL MILLENNIUM RBC 4.76 3.93 - CERNER 5.22 MILLENNIUM x10(6)/mcL Hemoglobin 14.7 11.2 - CERNER 15.7 gm/dL MILLENNIUM Hematocrit 41.5 34.0 - CERNER 45.0 % MILLENNIUM MCV 87.2 79.0 - CERNER 94.0 fL MILLENNIUM MCH 30.9 26.6 - CERNER 32.2 pg [facility] MCHC 35.4 32.0 - CERNER 36.5 gm/dL [facility] Platelets 239 145 - 370 CERNER x10(3)/mcL [facility] RDWSD 41.3 35.0 - CERNER 46.0 fL [facility] RDWCV 12.9 10.9 - CERNER 14.4 % [facility] MPV 10.0 9.0 - 12.0 CERNER fL [facility] Specimen Anatomical Collection Method Collection Time Receive d Time (Source) Location / / Volume Laterality Blood specimen 11/19/2014 8:05 AM 015 8:14 (specimen) EDT AM EDT Resulting Agency Comment Spec In Lab Kwame Medrano Jr., MD HEMATOLOGY ORDERABLES Performing Organization Address City/State/[place] [address] [facility] documented in this encounter Visit Diagnoses Diagnosis Hydronephrosis with obstructing calculus - Primary Hydronephrosis Essential hypertension Unspecified essential hypertension Ureteral stone Calculus of ureter documented in this encounter Administered Medications Inactive Administered Medications - up to 3 most recent administrations Medication Order MAR Action Action Date Dose Rate Site acetaminophen (TYLENOL) tablet 650 Given 11/21/2014 5:56 PM EDT 650 mg mg 650 mg, Oral, EVERY 6 HOURS PRN, Starting on Mon11/19/14 at 1218, Until 11/22/14 at 2036, Pain, Fever, Administer for temperature greater than or equal to 38.2 degrees celsius. Maximum daily dose of acetaminophen from all sources not to exceed 4,000 mg., Routine Given 11/21/2014 12:07 PM EDT 650 mg Given 11/21/2014 6:35 AM EDT 650 mg ciprofloxacin HCl (CIPRO) tablet 500 mg Given 11/19/2014 8:43 PM EDT 500 mg 500 mg, Oral, 2 TIMES DAILY, First dose on Mon11/19/14 at 1900, Until Discontinued, Routine ciprofloxacin HCl (CIPRO) tablet 500 mg Given 11/22/2014 5:53 PM EDT 500 mg 500 mg, Oral, 2 TIMES DAILY, First dose on Mon11/21/14 at 1100, Until Discontinued, Routine Given 11/22/2014 6:26 AM EDT 500 mg Given 11/21/2014 6:52 PM EDT 500 mg heparin (porcine) subcutaneous injection Given 015 2:04 PM EDT 5,000 Units 5,000 Units 5,000 Units, Subcutaneous, EVERY 8 HOURS SCHEDULED, First dose on Corrina 11/20/14 at 0915, Until Discontinued, Routine Given 11/22/2014 6:26 AM EDT 5,000 Units Given 11/21/2014 9:16 PM EDT 5,000 Units lactated ringers 1,000 mL IV bolus Given 11/20/2014 12:38 AM EDT Intravenous, ONCE, 1 dose, On Mon11/19/14 at 2330 lactated ringers 500 mL IV bolus Given 11/19/2014 10:42 PM EDT Intravenous, ONCE, 1 dose, On Mon11/19/14 at 2230 lactated ringers 500 mL IV bolus Given 11/19/2014 10:59 PM EDT Intravenous, ONCE, 1 dose, On Mon11/19/14 at 2315 lactated ringers 500 mL IV bolus Given 11/20/2014 10:08 AM EDT Intravenous, ONCE, 1 dose, On Corrina 11/20/14 at 1015 lactated ringers infusion Continued Bag 11/19/2014 9:19 AM EDT 100 mL/hr 100 mL/hr 100 mL/hr, Intravenous, CONTINUOUS, Starting on Mon11/19/14 at 0800, Until Mon11/19/14 at 1330 New Bag 11/19/2014 8:08 AM EDT 100 mL/hr 100 mL/hr lactated ringers infusion Rate/Dose Change 11/21/2014 3:18 PM EDT 75 mL/hr 75 mL/hr 75 mL/hr, Intravenous, CONTINUOUS, Starting on Mon11/19/14 at 2245, Until Mon11/21/14 at 1522 Rate/Dose Verify 11/21/2014 12:08 AM EDT 150 mL/hr 150 mL/hr Rate/Dose Verify 11/20/2014 8:00 PM EDT 150 mL/hr 150 mL/hr magnesium oxide (MAG-OX) tablet 400 mg Given 11/22/2014 8:21 AM EDT 400 mg 400 mg, Oral, 2 TIMES DAILY, First dose on Mon11/21/14 at 2100, Until Discontinued, Routine Given 11/21/2014 9:17 PM EDT 400 mg magnesium sulfate 2 g in sterile water 50 Given 11/21/2014 5 :57 PM EDT 2 g 25 mL/hr mL 2 g, Intravenous, ONCE, 1 dose, On Mon11/21/14 at 1800, Administer over 120 Minutes ondansetron (ZOFRAN) injection 4 mg Given 11/19/2014 10:11 PM EDT 4 mg 4 mg, Intravenous, EVERY 8 HOURS PRN, Starting on Mon11/19/14 at 1330, Until Mon11/22/14 at 2036, Nausea, May repeat times one in 30 minutes if ineffective. If multiple antiemetics are ordered, give ondansetron first. oxyCODONE (ROXICODONE) immediate release Given 11/20/2014 7:20 P M EDT 10 mg tablet 10 mg 10 mg, Oral, EVERY 4 HOURS PRN, Starting on Mon11/19/14 at 1218, Until Mon11/21/14 at 1520, Pain, severe pain (7-10), May give an additional 5 mg in 30 minutes once if pain not relieved., Routine Given 11/20/2014 10:54 AM EDT 10 mg Given 11/19/2014 8:43 PM EDT 10 mg piperacillin-tazobactam (ZOSYN) Given 11/21/2014 6:03 AM EDT 3.3 75 g 12.5 mL/hr 3.375 g in dextrose 5% 50 mL 3.375 g, Intravenous, EVERY 8 HOURS, First dose on Mon11/19/14 at 2300, Until Discontinued, Administer over 4 Hours, Indication for (Active or Suspected): Urinary Tract/Pyelonephritis Given 11/20/2014 10:02 PM EDT 3.375 g 12.5 mL/hr Given 11/20/2014 2:40 PM EDT 3.375 g 12.5 mL/hr potassium chloride (K-DUR/KLOR-CON) extended Given 9:17 PM EDT 20 mEq release tablet 20 mEq 20 mEq, Oral, 3 TIMES DAILY, 3 doses, First dose on Mon11/21/14 at 2000, Last dose on Mon11/22/14 at 1500, 20 mEq tablet may be dissolved in water for administration, Routine potassium chloride (K-DUR/KLOR-CON) extended Given 4:54 AM EDT 60 mEq release tablet 60 mEq 60 mEq, Oral, ONCE, 1 dose, On Mon11/22/14 at 0500, 20 mEq tablet may be dissolved in water for administration, Routine potassium chloride (K-DUR/KLOR-CON) extended Given 2:04 PM EDT 60 mEq release tablet 60 mEq 60 mEq, Oral, ONCE, 1 dose, On Mon11/22/14 at 1330, 20 mEq tablet may be dissolved in water for administration, Routine potassium chloride 10 mEq in 100 mL Given 11/20/2014 4:01 AM EDT 10 mEq 100 mL/hr 10 mEq, Intravenous, EVERY HOUR, 5 doses, First dose on Corrina 11/20/14 at 0000, Last dose on Mon11/20/14 at 0400, Administer over 60 Minutes Given 11/20/2014 3:04 AM EDT 10 mEq 100 mL/hr Given 11/20/2014 1:35 AM EDT 10 mEq 75 mL/hr sodium chloride 0.45% infusion New Bag 11/22/2014 11:44 AM EDT 100 mL/hr 100 mL/hr 1-100 mL/hr, Intravenous, EVERY 4 HOURS, First dose on Mon11/21/14 at 1600, Until Discontinued, Please replace 1:1 with UOP every 4 hours and run over 4 hours. For example, if she urinates 400 c delaney 4 hours, then give her 400 cc/4 hours, which would be 100 cc/hr. New Bag 11/22/2014 8:22 AM EDT 100 mL/hr 100 mL/hr New Bag 11/22/2014 4:29 AM EDT 100 mL/hr 100 mL/hr sodium chloride 0.9 % flush 5 mL Given 11/22/2014 8:22 AM EDT 5 mLs 5 mL, Intravenous, 2 TIMES DAILY, First dose on Mon11/19/14 at 1400, Until Discontinued, Routine Given 11/21/2014 9:13 PM EDT 5 mLs Given 11/20/2014 9:00 PM EDT 5 mLs traMADol (ULTRAM) tablet 50-100 mg Given 11/22/2014 4:55 AM EDT 100 mg 50-100 mg, Oral, EVERY 6 HOURS PRN, Starting on Mon11/21/14 at 1518, Until Mon11/22/14 at 2036, Pain, Give 50 mg for mild to moderate pain (1-6). Give 100 mg for severe pain (7-10) If pain not relived after 60 minutes by a dose of 50 mg then may repeat 50 mg ONCE. Maximum of 400 mg/day., Routine Given 11/21/2014 10:42 PM EDT 50 mg Given 11/21/2014 3:36 PM EDT 50 mg vancomycin 1 g in dextrose 5% 200 mL Given 11/21/2014 12:08 AM EDT 1,000 mg 1,000 mg (1 g), Intravenous, EVERY 24 HOURS, First dose on Mon11/21/14 at 0000, Until Discontinued, Administer over 60 Minutes, Maximum infusion rate is 1 gram/hour. If flushing of the face, neck, upper body, arms, and/or back occurs decrease infusion rate by 50% to reduce the severity of symptoms. This medication may have an associated drug lab level. Please see MAR for scheduled level., Indication for (Active or Suspected): Urinary Tract/Pyelonephritis vancomycin 1.25 g sodium in Given 11/20/2014 12:17 AM EDT 1,250 mg 200 mL/hr chloride 0.9% 250 mL 1,250 mg, Intravenous, ONCE, 1 dose, On Corrina 11/20/14 at 0000, Administer over 75 Minutes, Maximum infusion rate is 1 gram/hour. If flushing of the face, neck, upper body, arms, and/or back occurs decrease infusion rate by 50% to reduce the severity of symptoms. This medication may have an associated drug lab level. Please see MAR for scheduled level., Indication for (Active or Suspected): Bacteremia/Sepsis documented in this encounter Active and Recently Administered Medications Times are shown in EDT. Scheduled Medication Order 11/20/2014 11/21/2014 11/22/2014 ciprofloxacin HCl (CIPRO) tablet 500 mg 1206 (Given - Provider: Selena Buckley RN)1852 (Given - Provider: Selena Buckley RN) 0626 (Given - Provider: Rosa Cueva RN)1753 (Given - Provider: Mary Hernandez RN - Comment: given prior to discharge per MD request) 500 mg, Oral, 2 TIMES DAILY, First dose on Mon11/21/14 at 1100, Until Discontinued, Routine heparin (porcine) subcutaneous injection 5,000 Units ( CANCELED) 0915 (Not Given - Provider: Tj Marcelino RN - Reason: Contraindicated - Comment: too close to next dose)144 (Given - Provider: Tj Marcelino RN)210 (Given - Provider: Edu Kingston RN) 06 (Given - Provider: Vivi mar RN)140 (Given - Provider: Selena Buckley RN)211 (Given - Provider: Rosa Cueva RN) 06 (Given - Provider: Chris Toledo)1404 (Given - Provider: Mary Hernandez RN) 5,000 Units, Subcutaneous, EVERY 8 HOURS SCHEDULED, First dose on Mon11/20/14 at 0915, Until Discontinued, Routine lactated ringers 1,000 mL IV bolus (COMPLETED) 0038 (G iven - Provider: Edu Kingston RN) Intravenous, ONCE, 1 dose, Mon11/19/14 at 2330 lactated ringers 500 mL IV bolus (COMPLETED) 1008 (Giv en - Provider: Tj Marcelino RN) Intravenous, ONCE, 1 dose, Mon11/20/14 at 1015 magnesium oxide (MAG-OX) tablet 400 mg (CANCELED) 2116 (Given - Provider: Rosa Cueva RN) 08 (Given - Provider: Mary walker RN) 400 mg, Oral, 2 TIMES DAILY, First dose on Mon11/21/14 at 2100, Until Discontinued, Routine magnesium sulfate 2 g in sterile water 50 mL (CANCELED) 175 (Given - Provider: Selena Buckley RN) 2 g, Intravenous, ONCE, 1 dose, Mon11/21/14 at 1800, for 120 Min utes piperacillin-tazobactam (ZOSYN) 3.375 g in dextrose 5% 50 mL (CANCELED) 06 (Given - Provider: Edu Kingston RN)144 (Given - Provider: Tj Marcelino RN)220 (Given - Provider: Vivi Davalos RN) 06 (Given - Provider: Vivi Davalos RN) 3.375 g, Intravenous, EVERY 8 HOURS, Fir st dose on Mon11/19/14 at 2300, Until Discontinued, for 4 Hours, Indication for (Active or Suspected): Urinary Tract/Pyelonephritis potassium chloride (K-DUR/KLOR-CON) extended release tablet 20 mEq (CANCELED) 2116 (Given - Provider: Rosa Cueva, SONI) 20 mEq, Oral, 3 TIMES DAILY, 3 doses, Fi rst dose on Mon11/21/14 at 2000, Last dose on Mon11/22/14 at 1500, 20 mEq tablet may be dissolved in water for administration, Routine potassium chloride (K-DUR/KLOR-CON) extended release tablet 60 mEq (COMPLETED) 0454 (Given - Provider: Rosa Cueva, R N) 60 mEq, Oral, ONCE, 1 dose, 11/22/14 at 0500, 20 mEq tablet may be dissolved in water for administration, Routine potassium chloride (K-DUR/KLOR-CON) extended release tablet 60 mEq (COMPLETED) 1404 (Given - Provider: Mary walker RN) 60 mEq, Oral, ONCE, 1 dose, 11/22/14 at 1330, 20 mEq tablet may be dissolved in water for administration, Routine potassium chloride 10 mEq in 100 mL () 0035 (Gi kel - Provider: Edu Kingston RN)0135 (Given - Provider: Edu Kingston RN - Comment: slowed rate to 75/hour due to patient discomfort, ok'd by team.) 10 mEq, Intravenous, EVERY HOUR, 5 doses , First dose on Mon11/20/14 at 0000, Last dose on Mon11/20/14 at 0400, for 60 Minutes 0304 (Given - Provider: Edu Kingston RN - Comment: rate slowed to 75/hr due to site discomfort)0400 (Not Given - Provider: Edu Kingston RN - Reason: Contraindicated) 040 (Given - Provider: Edu Kingston RN - Comment: rate slowed to 75/hr due to PIV site discomfort) sodium chloride 0.45% infusion (CANCELED) 153 (New Bag - Provider: Selena Buckley RN - Comment: per )2118 (Continued Bag - Provider: Rosa Cueva RN) 0018 (Continued Bag - Provider: Rosa Cueva RN)0429 (New Bag - Provider: Rosa Cueva RN)0822 (New Bag - Provider: Mary Hernandez RN)1144 (New Bag - Provider: Mary Hernandez RN) 1-100 mL/hr, at 1-100 mL/hr, Intravenous , EVERY 4 HOURS, First dose on Mon11/21/14 at 1600, Until Discontinued, Please replace 1:1 with UOP every 4 hours and run over 4 hours. For example, if she urinat es 400 c delaney 4 hours, then give her 400 cc/4 hours, which would be 100 cc/hr. sodium chloride 0.9 % flush 5 mL (CANCELED) 0840 (Give n - Provider: Tj Marcelino RN)2100 (Given - Provider: Edu Kingston RN) 0900 (Not Given - Provider: Lynn Alaniz RN - Reason: See comment - Comment: fluids infusing)2112 (Given - Provider: Rosa Cueva RN) 0822 (Given - Provider: Mary Hernandez RN) 5 mL, Intravenous, 2 TIMES DAILY, First dose on Mon11/19/14 at 1400, Until Discontinued, Routine vancomycin 1 g in dextrose 5% 200 mL (CANCELED) 0008 (Given - Provider: Vivi Davalos RN) 1,000 mg (1 g), Intravenous, EVERY 24 HO URS, First dose on Mon11/21/14 at 0000, Until Discontinued, for 60 Minutes, Maximum infusion rate is 1 gram/hour. If flushing of the face, neck, upper body, arms, and/or back occurs decrease infusion ra te by 50% to reduce the severity of symptoms. This medication may have an associated drug lab level. Please see MAR for scheduled level., Indication for (Active or Suspected): Urinary Tract/Pyelonephritis vancomycin 1.25 g sodium in chloride 0.9% 250 mL (COMP LETED) 0017 (Given - Provider: Rere Steven RN) 1,250 mg, Intravenous, ONCE, 1 dose, Corrina 11/20/14 at 0000, for 75 Minutes, Maximum infusion rate is 1 gram/hour. If flushing of the face, neck, upper body, arms, and/or back occurs decrease infusion rate by 50% to reduce the severity of sympto ms. This medication may have an associated drug lab level. Please see MAR for scheduled level., Indication for (Active or Suspected): Bacteremia/Sepsis Continuous Medication Order 11/20/2014 11/21/2014 11/22/2014 lactated ringers infusion (CANCELED) 0030 (New Bag - P rovider: Edu Kingston RN)0200 (Rate/Dose Verify - Provider: Edu Kingston RN)0400 (Rate/Dose Verify - Provider: Edu Kingston RN)0500 (Canceled Entry - Provider: Edu Kingston RN) 0008 (Rate/Dose Verify - Provider: Kristin Davalos RN)1518 (Rate/Dose Change - Provider: Selena Buckley RN) 75 mL/hr, at 75 mL/hr, Intravenous, CONT INUOUS, Starting Mon11/19/14 at 2245, Until Mon11/21/14 at 1522 0600 (Rate/Dose Verify - Provider: Edu Kingston RN)0840 (Rate/Dose Change - Provider: Tj Marcelino RN)0958 (Rate/Dose Change - Provider: Tj Marcelino RN)1200 (Rate/Dose Verify - Provider: Tj Marcelino RN) 1347 (New Bag - Provider: Charly Gomez RN)1750 (Rate/Dose Change - Provider: Edu Kingston RN)1842 (New Bag - Provider: Edu Kingston RN)2000 (Rate/Dose Verify - Provider: Edu Kingston RN) PRN Medication Order 11/20/2014 11/21/2014 11/22/2014 acetaminophen (TYLENOL) tablet 650 mg (CANCELED) 0635 (Given - Provider: Vivi Davalos RN)1207 (Given - Provider: Selena Buckley, SONI)1756 (Given - Provider: Selena Buckley, SONI) 650 mg, Oral, EVERY 6 HOURS PRN, Startin g 11/19/14 at 1218, Until 11/22/14 at 2036, Pain, Fever, Administer for temperature greater than or equal to 38.2 degrees celsius. Maximum daily dose of james taminophen from all sources not to exceed 4,000 mg., Routine docusate sodium (COLACE) capsule 100 mg 100 mg, Oral, 2 TIMES DAILY PRN, Startin g Mon11/19/14 at 1330, Until 11/22/14 at 2035, Constipation, Routine oxyCODONE (ROXICODONE) immediate release tablet 10 mg (CANCELED) 1054 (Given - Provider: Tj Marcelino, SONI)1920 (Given - Provider: Edu Kingston, SONI) 10 mg, Oral, EVERY 4 HOURS PRN, Starting Mon11/19/14 at 1218, Until Mon11/21/14 at 1520, Pain, severe pain (7-10), May give an additional 5 mg in 30 minutes once if pain not relieved., Routine traMADol (ULTRAM) tablet 50-100 mg 1536 (Given - Provider: Selena Buckley RN)2242 (Given - Provider: Rosa Cueva, SONI) 0455 (Given - Provider: Rosa Cueva, SONI) 50-100 mg, Oral, EVERY 6 HOURS PRN, Star ting Mon11/21/14 at 1518, Until 11/22/14 at 2035, Pain, Give 50 mg for mild to moderate pain (1-6). Give 100 mg for severe pain (7-10) If pain not relived afte r 60 minutes by a dose of 50 mg then may repeat 50 mg ONCE. Maximum of 400 mg/day., Routine documented in this encounter Care Teams Clip Loading Machine Feeder Relationship Specialty Start Date End Date Syed Hyman MD PCP - General 11/19/[address] [place] [address] documented as of this encounter
--- OUTSIDE RECORDS SUMMARY | 2021-11-05 01:29 | XMS_ITS | Encounter Summary ---
:1945 [place] [address] Care Team Providers Name Role Phone Syed Hyman MD Primary Care Provider Reason for Visit Reason Comments Flank Pain Encounter Details Date Type Department Care Team Description 11/19/2014 Surgery Main Operating Room Kwame Medrano Jr., Marina HENSLEY, ST[facility] PLAC[facility] [address] [place] [address] [place] [id number] [phone] (Wo rk) Social History Tobacco Use Types [...] 69 y.o. female presenting in transfer from [facility] with LEFT flank pain and a 10 [...] dose of ciprofloxacin and was transferred to [facility] for further evaluation. Hospital Course Markos Barriga [...] tablet - aspirin 325 mg tablet - Ywdydbhlshaac-Xbuofnni-Fcndvr (CENTRUM SILVER) Tab - acetaminophen (TYLENOL EXTRA [...] Refills: 0 CENTRUM SILVER Tab Generic drug: Irtatavkajtun-Tuypmywi-Xiiygx Refills: 0 HYZAAR 100-12.5 mg Tab Generic [...] may be used if needed and are tjmm-thg-tuwodir medications available at most local pharmacies. Prunes [...] in the need for moreprocedures. General Instructions [facility] Lithotripsy: Before Your Procedure What is [...] living will and a durable power of ip attorney for health care. Bring a copy to [...] not apply lotions, perfumes, deodorants, or nail cameroonian. ?? Take off all jewelry and piercings. [...] Where can you learn more? Visit our [employer] information library at [email or web address]://[employer]/Aquicoreo You can also view health information on Lost My Name, your personal patient account. Log in or sign up today. Enter S604 in the search box to learn more about Lithotripsy: Before Your Procedure. ?? [phone] INTERNET BUSINESS TRADER. Care instructions adapted under license by [facility]. This care instruction is for use with your licensed healthcare professional. If you have questionsabout a medical condition or this instruction, always ask your healthcare professional. [employer] disclaims any warranty or liability for your use of this information. Content Version: 10.4.039838; Current as of: February 21, 2014 [facility] Ureteral Stent Placement: What to Expect at Home Your Recovery A ureteral (say akv-HAA-qci-ul) stent is a thin, hollow tube that [...] your doctor if you can take an wovx-esu-levrgnh medicine. ?? If you think your pain [...] more? Visit our health information library at http://[employer] You can also view health information on Lost My Name, your personal patient account. Log in or sign up today. Enter B869 in the search box to learn more about Ureteral Stent Placement: What to Expect at Home. ?? [phone] INTERNET BUSINESS TRADER. Care instructions adapted under license by [facility]. This care instruction is for use with your licensed healthcare professional. If you have questionsabout a medical condition or this instruction, always ask your healthcare professional. INTERNET BUSINESS TRADER disclaims any warranty or liability for your use of this information. Content Version: 10.4.814145; Current as of: December 17, 2013 CC: PCP: SYED HYMAN MD (General) Referring: [facility] [address] [place] [address] [place] [facility] [place] [address] documented in this encounter Discharge Instructions Discharge Gurjit Aguirre MD - 11/22/2014 4:34 PM EDT Images from the original note were not included. [facility] Lithotripsy: Before Your Procedure What is [...] living will and a durable power of ip attorney for health care. Bring a copy to [...] not apply lotions, perfumes, deodorants, or nail cameroonian. ?? Take off all jewelry and piercings. [...] more? Visit our health information library at [email or web address]://[employer] You can also view health information on Lost My Name, your personal patient account. Log in or sign up today. Enter S604 in the search box to learn more about Lithotripsy: Before Your Procedure. ?? [phone] INTERNET BUSINESS TRADER. Care instructions adapted under license by [facility]. This care instruction is for use with your licensed healthcare professional. If you have questionsabout a medical condition or this instruction, always ask your healthcare professional. INTERNET BUSINESS TRADER disclaims any warranty or liability for your use of this information. Content Version: 10.4.039840; Current as of: February 21, 2014 [facility] Ureteral Stent Placement: What to Expect at Home Your Recovery A ureteral (say udd-GVT-ceh-ul) stent is a thin, hollow tube that [...] your doctor if you can take an fbmz-qrg-uhvdiic medicine. ?? If you think your pain [...] Where can you learn more? Visit our [employer] information library at http://[employer] You can also view health information on Lost My Name, your personal patient account. Log in or sign up today. Enter B869 in the search box to learn more about Ureteral Stent Placement: What to Expect at Home. ?? [phone] INTERNET BUSINESS TRADER. Care instructions adapted under license by [facility]. This care instruction is for use with your licensed healthcare professional. If you have questionsabout a medical condition or this instruction, always ask your healthcare professional. INTERNET BUSINESS TRADER disclaims any warranty or liability for your use of this information. Content Version: 10.4.820818; Current as of: December 17, 2013 Patient [...] may be used if needed and are mkyc-abh-rvwfrxi medications available at most local pharmacies. Prunes [...] today with red streak, MD Beaulieu aware. [place] tinged urine draining significantly, aware. Regular diet. Off tele. Report called to RN, all belongings and meds sent with pt to [address] [place] [address]. Bertha Michelle RN - 11/21/2014 11:22 AM EDT Office of Care Management Cardiovascular Critical Care, ICU [address] [place] [address] Loader Helper SONI Michelle RN, BSN, AC Pager # [phone] Record reviewed and patient discussed with singing teacherSONI Agee. No discharge needs identified at this time. Loader Helper remains available as needed for coordination of [...] or walker. Needs AD completed, referred to LIQUEFACTION AND REGASIFICATION HELPERFilipe Montanodidier Thomas as pt is transferred to [facility] today. Kwame Medrano Jr., MD - 11/21/2014 [...] today Марина Pereira MD Urology PGY-2 Pager: [phone] МАРИНА PEREIRA MD STAFF ADDENDUM: I saw [...] Nutrition Intervention: Patient eating ICU Diet Order: [facility] Appetite: Good Food allergies: NKFA Chewing/Swallowing difficulty: none Height: 157.5 cm Weight: 34.8 kg Body mass index is 36 kg/(m^2). Assessment: Patient eating well, without difficulty. Patient understands menu and is ordering every day. No questions or concerns at this time. Nutrition Plan: [facility] diet. Recommend Daily Multi Vitamins. Monitor weight. Encourage good po intake. Support and encouragement provided. Nutrition services to follow weekly thru hospital course unless consulted in the interim. ALANIS HADLEY, DT Kwame Medrano Jr., MD - 11/20/2014 8:45 AM EDT Urology Inpatient Progress Note ID: Markos Barriga is a 69 y.o. female with a 10 mm LEFT UPJ stone, s/p left ureteral stent placement. 24 hr Events/Subjective: Left ureteral stent placed yesterday Became acutely ill overnight with fevers and hypotension and confusion. Bolused. Cipro broadened to Vanc/Z[facility]yn [facility] Fe[facility] well this AM Objective: Last [...] code Марина Pereira MD Urology PGY-2 Pager: [phone] STAFF ADDENDUM: I saw and examined Markos [...] transfer to ICU vs ISCU - urology front office spec came in to evaluate patient - follow [...] flowsheets for continued VS. Life safety here. Healthcare Customer Service aware. Pt. becoming confused. Speech slurred- having [...] time. Have paged for astat CXR and done.\[id number]\ Report given to [place] SALVAGE. Aparna Napier RN - 11/19/2014 4:47 PM [...] ED CONSULT NOTE CC LEFT flank pain. ARLENE Barriga is a 69 y.o. female presenting in transfer from [facility] with LEFT flank pain and a 10 [...] dose of ciprofloxacin and was transferred to [facility] for further evaluation. She denies prior episodes [...] tablet ??? aspirin 325 mg tablet ??? Sirxqwuqmzulf-Hiscpgbr-Bdtztx (CENTRUM SILVER) Tab ??? acetaminophen (TYLENOL EXTRA [...] Review Outcome: Ongoing (Interventions Implemented as Appropriate) 11/19/14142011/21/142054 Plan of Care Review Plan of Care [...] Minimal assist when OOB Surveillance: Purposeful rounding, Lencho CPG GOAL OUTCOME EVALUATION: Goal: Individualization and [...] Care Goal: Plan of Care Review 11/19/14 14211/21/14 1141 Plan of Care Review Plan of [...] OUTCOME EVALUATION: Goal: Individualization and Mutuality 11/19/14 142 Individualization Patient Specific Goals mobilize, advance diet Patient Specific Interventions assess pain level, monitor I&O Goal: Fall Prevention-Safe Patient Handling 11/21/14 1141 11/21/14 1206 Safety Interventions Safety Precautions/Fall Reduction -- fall reduction program maintained;environmental modification;low bed Musculoskeletal Interventions Activity/Level of Assistance up in room;with 1-person assist -- Positioning independent -- Goal: Discharge Needs Assessment 11/19/141420 Discharge Needs Assessment Concerns to be Addressed no discharge needs identified Readmission Within the Last 30 Days no previous admission in last 30 days Current Health Anticipated Changes Related to Illness none Plan of Care - Vivi Davalos RN - 11/21/2014 1:53 AM EDT Problem: General Plan of Care Goal: Plan of Care Review Outcome: Ongoing (Interventions Implemented as Appropriate) 11/19/14142011/20/14 2200 Plan of Care Review Plan of [...] Outcome: Ongoing (Interventions Implemented as Appropriate) 11/19/14 14211/19/14 1639 Individualization Patient Specific Goals mobilize, advance [...] Handling Outcome: Ongoing (Interventions Implemented as Appropriate) 11/20/14199911/20/14 2200 11/21/14 0000 Safety Interventions Safety Precautions/Fall Reduction -- [...] Ongoing (Interventions Implemented as Appropriate) 11/19/14 1421 Plan of Care Review Plan of Care [...] Ongoing (Interventions Implemented as Appropriate) 11/19/14 1421 Individualization Patient Specific Goals mobilize, [...] Fontanez MD - 11/19/2014 11:51 AM EDT [facility] Operative Note Patient Name: Markos Barriga : [id number] MR#: [id number] Case Date: 11/19/2014 Surgeon: Surgeon(s) and Role: [...] Operative Note Patient Name: Markos Barriga : [id number] MR#: [id number] Case Date: 11/19/2014 Surgeon: Surgeon(s) and Role: [...] 11/19/2014 7:51 AM EDT Pt presents from [facility] for 10mm L kidney stone with [...] Procedure Name Priority Date/Time Associated Comments Diagnosis GAS PROVER SCAN 11/23/2014 12:00 AM EDT ECG SCAN [...] Res ults for this SEND TO LAB ([facility]) PM EDT proce dure are in the results section. LACTATE, WHOLE BLOOD, Routine 11/20/2014 2:50 Res ults for this SEND TO LAB ([facility]) PM EDT proce dure are in the results section. TROPONIN STAT 11/20/2014 11:00 Results for this AM EDT procedure are i n the results section. LACTATE, WHOLE BLOOD, Timed 11/20/2014 9:20 Res ults for this SEND TO LAB ([facility]) AM EDT proce dure are in the [...] documented in this encounter Results SCAN DOC: GAS PROVER (11/23/2014 12:00 AM EDT) Narrative This result [...] intervals supplied above were not validated at [facility]. Results from pediatri c patients should be [...] Calcium 9.0 8.5 - 10.5 mg/dL LUCILLE BURDICK NIUM Estimated GFR >60 >=60 LUCILLE Gifford Comment: This estimated GFR (eGFR) value was [...] the following links into your internet browser. [email or web address] Specimen Anatomical Collection Method Collection Time Receive d Time (Source) Location / / Volume Laterality Blood specimen 11/22/2014 11:36 5 (specimen) AM EDT 11:40 AM EDT Resulting Agency Comment Spec In Lab Kwame Medrano Jr., MD CHEMISTRY ORDERABLES Performing Organization Address City/State/ZIP Code Phon e Number [place] [phone] LUCILLE GONZALEZENNIUM Hemogram (11/22/2014 [...] Organization Address City/State/ZIP Code Phon e Number [place] [phone] CERNER MILLENNIUM (ABNORMAL) Basic [...] intervals supplied above were not validated at [facility]. Results from pediatri c patients should be [...] NIUM Estimated GFR >60 >=60 CERNER MILLENNIU M Comment: This estimated [...] the following links into your internet browser. [email or web address] Specimen Anatomical Collection Method Collection Time Receive d Time (Source) Location / / Volume Laterality Blood specimen 11/22/2014 3:29 AM 015 3:37 (specimen) EDT AM EDT Resulting Agency Comment Spec In Lab Kwame Medrano Jr., MD CHEMISTRY ORDERABLES Performing Organization Address City/State/ZIP Code Phon e Number [place] [phone] CERNER MILLENNIUM (ABNORMAL) Basic Metabolic Panel (non-fasting) (11/21/2014 3:33 PM EDT) athologist Signature Glucose Lvl 101 65 - 199 CERNER mg/dL MILLENNIUM Comment: Diabetes: >=200 mg/dL plus symp toms BUN 11 8 - 18 mg/dL CERNER MILLENNIUM Creatinine 1.06 0.70 - 1.20 mg/dL CERNER MILL ENNIUM Comment: Please note that the pediatric reference intervals supplied above were not validated at [facility]. Results from pediatri c patients should be interpreted in conjunction to the patient's age, height and muscle mass. Sodium 140 135 - 145 mmol/L CERNER GENNARO NIUM Potassium 3.0 (Critical) 3.5 - 5.0 mmol/L CERNER M ILLENNIUM Comment: Called by: renetta, Read [...] Anion Gap 14 5 - 15 mmol/L LUCILLE JAIMESIU M Calcium 8.7 8.5 - 10.5 mg/dL LUCILLE BURDICK NIUM Estimated GFR 52 (L) >=60 LUCILLE JAIMESIU M Comment: This [...] the following links into your internet browser. [email or web address] Specimen Anatomical Collection Method Collection Time Receive d Time (Source) Location / / Volume Laterality Blood specimen Venous Draw / 11/21/2014 3:33 PM 2014 3:51 (specimen) Unknown EDT PM EDT Resulting Agency Comment Spec In Lab Kwame Medrano Jr., MD CHEMISTRY ORDERABLES Performing Organization Address City/State/ZIP Code Phon e Number [address] [facility] THE[facility] Magnesium (11/21/2014 3:33 PM EDT) athologist Signature Magnesium 0.73 0.69 - 1.07 CERNER mmol/L [facility] Specimen Anatomical Collection Method Collection Time Receive d Time (Source) Location / / Volume Laterality Blood specimen 11/21/2014 3:33 PM 015 3:51 (specimen) EDT PM EDT Resulting Agency Comment Spec In Lab Kwame Medrano Jr., MD CHEMISTRY ORDERABLES Performing Organization Address City/[facility]/ZIP Code Phon e Number [address] CERNER LISAENNIUM (ABNORMAL) Basic Metabolic Panel (non-fasting) (11/21/2014 2:52 AM EDT) athologist Signature Glucose Lvl 121 65 - 199 CERNER mg/dL MILLENNIUM Comment: Diabetes: >=200 mg/dL plus symp toms BUN 16 8 - 18 mg/dL CERNER MILLENNIUM Creatinine 1.05 0.70 - 1.20 mg/dL CERNER MILL ENNIUM Comment: Please note that the pediatric reference intervals supplied above were not validated at [facility]. Results from pediatri c patients should be [...] the following links into your internet browser. [email or web address] Specimen Anatomical Collection Method Collection Time Receive d Time (Source) Location / / Volume Laterality Blood specimen 11/21/2014 2:52 AM 015 3:00 (specimen) EDT AM EDT Resulting Agency Comment Spec In Lab Kwame Medrano Jr., MD CHEMISTRY ORDERABLES Performing Organization Address City/State/ZIP Code Phon e Number [place] [phone] CERNER MILLENNIUM (ABNORMAL) Hemogram [...] Jr., MD HEMATOLOGY ORDERABLES Performing Organization Address City/[facility] Code Phon e Number [address] CERNER MILLENNIUM Lactate, whole [...] Jr., MD CHEMISTRY ORDERABLES Performing Organization Address City/[facility] Phon e Number [address] CERNER MILLENNIUM (ABNORMAL) Lactate, whole blood, send to lab (11/20/2014 2:50 PM EDT) athologist Signature Lactate WB 2.3 (H) 0.5 - 2.2 CERNER mmol/L [facility] Specimen Anatomical Collection Method Collection Time Receive d Time (Source) Location / / Volume Laterality Blood specimen 11/20/2014 2:50 PM 015 3:00 (specimen) EDT PM EDT Resulting Agency Comment Spec In Lab Kwame Medrano Jr., MD CHEMISTRY ORDERABLES Performing Organization Address City/[facility]/ZIP Code Phon e Number RYLIE [address] CERNER [facility] Troponin T (11/20/2014 11:00 AM EDT) athologist Signature Troponin-T <0.03 <=0.03 CERNER ng/mL [facility] Comment: 0.03 ng/mL: Represents the 99th [...] consensus document of the Joint Society of Cardiology/[place] [employer] o [employer] Committee for the redefinition of myocardial infarction. ? ?Journal of the [place] College of Cardiology 2000; 36: 959-969] Specimen Anatomical Collection Method Collection Time Receive d Time (Source) Location / / Volume Laterality Blood specimen 11/20/2014 11:00 5 (specimen) AM EDT 11:14 AM EDT Resulting Agency Comment Spec In Lab Kwame Medrano Jr., MD CHEMISTRY ORDERABLES Performing Organization Address City/State/ZIP Code Phon e Number RYLIE [facility] [place] [address] CERNER MILLENNIUM (ABNORMAL) Basic [...] intervals supplied above were not validated at [facility]. Results from pediatri c patients should be [...] the following links into your internet browser. [email or web address] Specimen Anatomical Collection Method Collection Time Receive d Time (Source) Location / / Volume Laterality Blood specimen Venous Draw / 11/20/2014 9:20 AM 2014 9:41 (specimen) Unknown EDT AM EDT Resulting Agency Comment Spec In Lab Kwame Medrano Jr., MD CHEMISTRY ORDERABLES Performing Organization Address City/[facility] [place] [address] CERNER MILLENNIUM Troponin T (11/20/2014 9:20 AM EDT) athologist Signature Troponin-T Not Perf <=0.03 CERNER [...] consensus document of the Joint Society of Cardiology/[place] [employer] o f [employer]iology Committee for the redefinition of myocardial infarction. ? ?Journal of the [place] College of Cardiology 2000; 36: 959-969] Specimen Anatomical Collection Method Collection Time Receive d Time (Source) Location / / Volume Laterality Blood specimen 11/20/2014 9:20 AM 015 9:41 (specimen) EDT AM EDT Resulting Agency Comment Spec In Lab Kwame Medrano Jr., MD CHEMISTRY ORDERABLES Performing Organization Address City/State/[place] [address] CERNER MILLENNIUM (ABNORMAL) Lactate, [...] Jr., MD CHEMISTRY ORDERABLES Performing Organization Address [facility]/[place] [address] CERNER MILLENNIUM (ABNORMAL) BLOOD GAS [...] Organization Address City/State/ZIP Code Phon e Number [place] [phone] CERNER MILLENNIUM Troponin T [...] consensus document of the Joint Society of Cardiology/[place] [employer] o f [employer]iology Committee for the redefinition of myocardial infarction. ? ?Journal of the [place] College of Cardiology 2000; 36: 959-969] Specimen Anatomical Collection Method Collection Time Receive d Time (Source) Location / / Volume Laterality Blood specimen Venous Draw / 11/20/2014 2:00 AM 2014 2:08 (specimen) Unknown EDT AM EDT Resulting Agency Comment Spec In Lab Kwame Medrano Jr., MD CHEMISTRY ORDERABLES Performing Organization Address City/State/ZIP Code Phon e Number [place] [phone] CERNER MILLENNIUM (ABNORMAL) Basic Metabolic Panel (non-fasting) (11/20/2014 2:00 AM EDT) P athologist Signature Glucose Lvl 135 65 - 199 CERNER mg/dL MILLENNIUM Comment: Diabetes: >=200 mg/dL plus symp toms BUN 13 8 - 18 mg/dL CERNER MILLENNIUM Creatinine 1.19 0.70 - 1.20 mg/dL CERNER MILL ENNIUM Comment: Please note that the pediatric reference intervals supplied above were not validated at [facility]. Results from pediatri c patients should be [...] the following links into your internet browser. [email or web address] Specimen Anatomical Collection Method Collection Time Receive d Time (Source) Location / / Volume Laterality Blood specimen 11/20/2014 2:00 AM 015 2:08 (specimen) EDT AM EDT Resulting Agency Comment Spec In Lab Kwame Medrano Jr., MD CHEMISTRY ORDERABLES Performing Organization Address City/[facility]/ZIP Code Phon e Number [address] CERNER MILLENNIUM (ABNORMAL) Hemogram (11/20/2014 [...] Jr., MD HEMATOLOGY ORDERABLES Performing Organization Address City/[facility]/[place] [address] CERNER MILLENNIUM POCT Glucose (11/19/2014 11:50 PM EDT) P athologist Signature POC Glucose 122 65 - 199 CERNER mg/dL [employer] Comment: Supplemental ranges: <140 mg/dL before meals <180 mg/dL all other times of the day Specimen Anatomical Collection Method Collection Time Receive d Time (Source) Location / / Volume Laterality Blood specimen 11/19/2014 11:50 5 (specimen) PM EDT 11:50 PM EDT Kwame Medrano Jr., MD POINT OF CARE TEST ORDERABLE S Performing Organization Address City/State/ZIP [place] [address] CERNER LUMO [employer] XR chest PA or AP- 1 view [...] Called by: cony, Read back by: Aparna alvarado, Date/Time:11/19/14 23:11. Please note: ??Patients with WBC >100,00 0 may have falsely elevated Potassium levels. ??Contact the Clinical Chemistry Laboratory if there are any questions. ICa Whole Blood 1.15 1.15 - 1.33 mmol/L CERNE R MILLENNIUM Comment: Note: ??Total bilirubin higher than 20 m g/dL may lead to falsely low ionized calcium. CL Whole Blood 103 98 - 107 mmol/L CERNER PA LLENNIUM Gluc Whole Bld 132 65 - [...] Organization Address City/State/[place] [address] CERNER MILLENNIUM (ABNORMAL) Differential, Automated (11/19/2014 10:30 PM EDT) [facility] gist Method Time Signature Neutrophils % 93.9 % [...] Organization Address City/State/[place] [address] CERNER MILLENNIUM (ABNORMAL) Hemogram [...] Organization Address City/State/[place] [address] CERNER MILLENNIUM Blood culture [...] - BLOOD ORDERAB LES Performing Organization Address City/State/ZIP Code Phon e Number [address] CERNER MILLENNIUM (ABNORMAL) Basic [...] intervals supplied above were not validated at [facility]. Results from pediatri c patients should be interpreted in conjunction to the patient's age, height and muscle mass. Sodium 135 135 - 145 mmol/L CERNER GENNARO NIUM Potassium 3.0 (Critical) 3.5 - 5.0 mmol/L ANNMARIENER M ILLENNIUM Comment: Results rechecked. Called by: [facility], Read back by: Maira Malone, Date/Time:11/19/14 [...] CO2 21 (L) 22 - 31 mmol/L CERNER MILLENNI UM Anion Gap 17 (H) 5 - 15 mmol/L CERNER MILLENNIU M Calcium 9.1 8.5 - 10.5 mg/dL LUCILLE CADET Estimated GFR 38 (L) >=60 LUCILLE Gifford Comment: This estimated GFR (eGFR) value was [...] the following links into your internet browser. [email or web address] Specimen Anatomical Collection Method Collection Time Receive d Time (Source) Location / / Volume Laterality Blood specimen 11/19/2014 10:30 5 (specimen) PM EDT 10:58 PM EDT Resulting Agency Comment Spec In Lab Kwame Medrano Jr., MD CHEMISTRY ORDERABLES Performing Organization Address City/State/[place] [address] LUCILLE GERBER EKG 12 [...] 519 ms MUSE SYSTEM (Bezet) Calculated R Greene 18 degrees MUSE SYSTEM Calculated T Greene 49 degrees MUSE SYSTEM INTERPRETATION Sinus tachycardia MUSE SY STEM Nonspecific ST abnormality Abnormal ECG No previous ECGs available Confirmed by MD ARPITA, MATTHIAS (50) on 11/20/2014 8:16:1 2 AM Specimen Anatomical Collection Method Collection Time Receive d Time (Source) Location / / Volume Laterality 11/19/2014 10:17 11/20/2014 8:16 PM EDT AM EDT Kwame Medrano Jr., MD ECG ORDERABLES Performing Organization Address City/State/ZIP Code Phon e Number MUSE SYSTEM Blood culture (11/19/2014 10:15 PM EDT) [employer] Method Time Signature Blood Culture No growth CERNER at 5 days. MILLENNIUM Specimen Anatomical Collection Method Collection Time Receive d Time (Source) Location / / Volume Laterality Blood specimen 11/19/2014 10:15 5 (specimen) PM EDT 10:39 PM EDT Resulting Agency Comment Spec In Lab Kwame Medrano Jr., MD MICROBIOLOGY - BLOOD ORDERAB LES Performing Organization Address City/[facility]/[place] [address] CERNER MILLENNIUM (ABNORMAL) Urine culture Cystoscopic Urine (11/19/2014 11:44 AM EDT) [facility] Signature Urine Culture 1,000-9,000 CERNER [...] - GENERAL ORDER QUIN Performing Organization Address City/[facility]/[place] [address] CERNER MILLENNIUM XR abdomen 1 view (11/19/2014 9:14 AM [...] therapy TECHNIQUE: Frontal supine views of [facility] COMPARISON: CT of the abdomen 11/19/2014 FINDINGS: [...] therapy TECHNIQUE: Frontal supine views of [facility] COMPARISON: CT of the abdomen 11/19/2014 FINDINGS: [...] Clean Catch Urine (11/19/2014 8:47 AM EDT) Patholo gist Method Time Signature Urine Culture No growth [facility] (Less than MILLENNIUM 1,000 cfu/ml). Specimen (Source) Anatomical Collection Method Collection Time Re ceived Time Location / / Volume Laterality Urine specimen 11/19/2014 8:47 11/19/2014 9:04 obtained by clean AM EDT AM EDT catch procedure (specimen) Resulting Agency Comment Spec In Lab Kwame Medrano Jr., MD MICROBIOLOGY - GENERAL ORDER QUIN Performing Organization Address City/[facility] Phon e Number [address] [facility] MILLENNIUM Blue Tube HOLD (11/19/2014 8:05 AM EDT) athologist Signature Blue Hold Sample in [facility] lab. [facility] Specimen Anatomical Collection Method Collection Time Receive d Time (Source) Location / / Volume Laterality Blood specimen Venous Draw / 11/19/2014 8:05 AM 2014 8:15 (specimen) Unknown EDT AM EDT Kwame Medrano Jr., MD HEMATOLOGY ORDERABLES Performing Organization Address City/[facility] [place] [address] CERNER MILLENNIUM (ABNORMAL) Basic [...] intervals supplied above were not validated at [facility]. Results from pediatri c patients should be [...] the following links into your internet browser. [email or web address] Specimen Anatomical Collection Method Collection Time Receive d Time (Source) Location / / Volume Laterality Blood specimen 11/19/2014 8:05 AM 015 8:13 (specimen) EDT AM EDT Resulting Agency Comment Spec In Lab Kwame Medrano Jr., MD CHEMISTRY ORDERABLES Performing Organization Address City/State/ZIP Code Phon e Number [place] [id number] CERNER MILLENNIUM (ABNORMAL) Hemogram (11/19/2014 8:05 AM EDT) P athologist Signature WBC 13.5 (H) 4.0 - 10.0 CERNER x10(3)/mcL MILLENNIUM RBC 4.76 3.93 - CERNER 5.22 MILLENNIUM x10(6)/mcL Hemoglobin 14.7 11.2 - CERNER 15.7 gm/dL MILLENNIUM Hematocrit 41.5 34.0 - CERNER 45.0 % MILLENNIUM MCV 87.2 79.0 - CERNER 94.0 fL MILLENNIUM MCH 30.9 26.6 - CERNER 32.2 pg MILLENNIUM MCHC 35.4 32.0 - CERNER 36.5 gm/dL MILLENNIUM Platelets 239 145 - 370 CERNER x10(3)/mcL [facility] R[facility] 41.3 35.0 - CERNER 46.0 fL [facility] RDWCV 12.9 10.9 - CERNER 14.4 % [facility] MPV 10.0 9.0 - 12.0 CERNER fL [facility] Specimen Anatomical Collection Method Collection Time Receive d Time (Source) Location / / Volume Laterality Blood specimen 11/19/2014 8:05 AM 015 8:14 (specimen) EDT AM EDT Resulting Agency Comment Spec In Lab Kwame Medrano Jr., MD HEMATOLOGY ORDERABLES Performing Organization Address City/State/[place] [address] [facility] documented in this encounter Visit Diagnoses Not on filedocumented in this encounter Administered Medications Inactive Administered Medications - up to 3 most recent administrations Medication Order MAR Action Action Date Dose Rate Site iohexol (OMNIPAQUE) 300 Given 11/19/2014 11:30 AM 8 mLs 19- Surgical Site mg/mL solution EDT ONCE PRN, Starting on Mon11/19/14 at 1130, Until Mon11/19/14 at 1329, Intra-Operative (Intra-Procedure), Routine documented in this encounter Active and Recently [...] Contraindicated - Comment: too close to next dose)1440 (Given - Provider: Tj Marcelino RN)2104 (Given - Provider: Edu Kingston RN) 0603 (Given - Provider: Vivi mar RN)1403 (Given - Provider: Selena Buckley, SONI)211 (Given - Provider: Rosa Cueva RN) 0626 (Given - Provider: Chris Toledo)1404 (Given - [...] 2116 (Given - Provider: Rosa Cueva RN) 0821 (Given - Provider: Mary walker RN) 400 [...] (CANCELED) 06 (Given - Provider: Edu Kingston RN)1440 (Given - Provider: Tj Marcelino, SONI)220 (Given - Provider: Vivi Davalos, SONI) 06 (Given - Provider: Vivi Davalos RN) 3.375 g, Intravenous, EVERY 8 HOURS, Fir st dose on Mon11/19/14 at 2300, Until Discontinued, for 4 Hours, Indication for (Active or Suspected): Urinary Tract/Pyelonephritis potassium chloride (K-DUR/KLOR-CON) extended release tablet 20 mEq (CANCELED) 2116 (Given - Provider: Rosa Cueva RN) 20 mEq, Oral, 3 TIMES DAILY, 3 doses, Fi rst dose on Mon11/21/14 at 2000, Last dose on Mon11/22/14 at 1500, 20 mEq tablet may be dissolved in water for administration, Routine potassium chloride (K-DUR/KLOR-CON) extended release tablet 60 mEq (COMPLETED) 0454 (Given - Provider: Rosa Cueva R N) 60 mEq, Oral, ONCE, 1 [...] HOUR, 5 doses , First dose on Corrina 11/20/14 at 0000, Last dose on Mon11/20/14 at 0400, for 60 Minutes 0304 (Given - Provider: Edu Kingston RN - Comment: rate slowed to 75/hr due to site discomfort)0400 (Not Given - Provider: dEu Kingston RN - Reason: Contraindicated) 0401 (Given - Provider: Edu Kingston RN - Comment: rate slowed to 75/hr due to PIV site discomfort) sodium chloride 0.45% infusion (CANCELED) 1537 (New Bag - Provider: Selena Buckley RN - Comment: per )211 (Continued Bag - Provider: Rosa Cueva RN) [...] infusing)2112 (Given - Provider: Rosa Cueva RN) 08 (Given - Provider: Mary Hernandez RN) 5 [...] Vivi Davalos RN)1207 (Given - Provider: Selena Buckley RN)1756 (Given - Provider: Selena Buckley, SONI) 650 mg, Oral, EVERY 6 HOURS PRN, Startin g Mon11/19/14 at 1218, Until 11/22/14 at 2036, [...] (CANCELED) 1054 (Given - Provider: Tj Marcelino, RN)1920 (Given - Provider: Edu Kingston RN) 10 mg, Oral, EVERY 4 HOURS PRN, Starting 11/19/14 at 1218, Until Mon11/21/14 at 1520, Pain, severe pain (7-10), May give an additional 5 mg in 30 minutes once if pain not relieved., Routine traMADol (ULTRAM) tablet 50-100 mg 1536 (Given - Provider: Selena Buckley RN)2242 (Given - Provider: Rosa Cueva, SONI) 0455 (Given - Provider: Rosa Cueva RN) 50-100 mg, Oral, EVERY 6 HOURS PRN, [...] Routine documented in this encounter Care Teams Scratch Finisher Relationship Specialty Start Date End Date Syed Hyman MD PCP - General 11/19/[address] [place] [address] documented as of this encounter
--- OUTSIDE RECORDS SUMMARY | 2021-11-05 01:29 | XMS_ITS | Encounter Summary ---
:1945 [place] [address] Care Team Providers Name Role Phone Rasheeda Reyes MD Primary Care Provider Encounter Details Date Type Department Care Team Description 11/19/2014 Orders Only Urology at [facility] Kwame Medrano Jr., MD [facility] [place] [address] UROLOGY DEPT. [phone] [place], [place] [address] (Wo rk) Social History Tobacco Use Types Packs/Day Years Used Date Current Every Day Smoker 0.5 Smokeless Tobacco: Never Used Alcohol Use Standard Drinks/Week Comments No 0 (1 standard drink = 0.6 oz pure alcoho l) Sex Assigned at Date Recorded Not on file documented as of this encounter Plan of Treatment Not on filedocumented as of this encounter Procedures Procedure Name Priority Date/Time Associated Diagnosis Comme nts FILM LIBRARY Routine 11/19/2014 4:30 AM Results f or this STORAGE ONLY CT EDT procedure ar e in ABDOMEN the results section. documented in this encounter Results Film Library- Storage only CT Abdomen (11/19/2014 4:30 AM EDT) Anatomical Region Laterality Modality Abdomen Other Specimen (Source) Anatomical Collection Method Collection Time Re ceived Time Location / / Volume Laterality 11/19/2014 4:30 AM EDT Narrative 11/19/2014 5:43 AM EDT This is a Non-reportable exam Procedure Note DOC, UNSIGNED REPORT - 11/19/2014Formatt ing of this note might be different from the original. This is a Non-reportable exam Kwame Medrano Jr., MD IM FILM LIBRARY ORDERABLES documented in this encounter Visit Diagnoses Not on filedocumented in this encounter Care Teams Assurance Sourcing Manager Relationship Specialty Start Date End Date Rasheeda Reyes MD PCP - General 11/19/14 [address] [place] [address] documented as of this encounter
--- OUTSIDE RECORDS SUMMARY | 2021-11-05 01:29 | XMS_ITS | Encounter Summary ---
:1945 Author [place] [address] Care Team Providers Name Role Phone Rasheeda Reyes MD Primary Care Provider Encounter Details Date Type Department Care Team Description 12/05/2014 Hospital Encounter Outpatient Surgery Tyrone Medrano ydronephrosis with Center Rylie Ballesteros MD obstructing calculus [facility] [place] [phone] Social History Tobacco Use Types Packs/Day Years [...] documented in this encounter Discharge Instructions Discharge InstructionsAngelica Vizcarra RN - 12/05/2014 11:27 AM EDT General [...] closest emergency room or call the hospital fabrication operator at [phone] and ask for physician radiotelephone technical operator covering for your physician. Questions or problems after 5pm or on a weekend: Call the [facility] fabrication operator at and ask for the physician radiotelephone technical operator covering for your doctor. Patient InstructionsTricia Luis Gifford - 12/05/2014 12:42 PM EDT Instructions following Shock Wave Lithotripsy Wound Care: None needed Activity: As tolerated by your comfort level. Urination: You will likely have a small amount of blood in your urine. This is normal; however, if you are passing large amounts of blood clots, bright red blood or are bleeding an unable to urinate please call our office at [phone] 5PM or [phone] after hours. Call Doctor for: Please call if you have copious blood in your urine, severe back or side pain, painnot controlled by pain medications, persistent nausea and vomiting, or for any fevers greater than 101.3 F. The number for questions is [phone] before 5 PM weekdays and [phone] after 5 PM and weekends. Pain Medication: [...] and an ultrasound of yourkidneys. Please call [phone] (clinic number for appointments) to confirm date [...] meclizine (ANTIVERT) 25 mg 0 0 tablet Rpgycipzqgemd-Xlraydip-Ofn 0 0 ein (CENTRUM SILVER) Tab acetaminophen [...] Luis Clarke - 12/05/2014 3:11 PM EDT [facility] Operative Note Patient Name: Markos Barriga : [id number] MR#: [id number] Case Date: 12/05/2014 Surgeon: Surgeon(s) and Role: [...] Operative Note Patient Name: Markos Barriga : [id number] MR#: [id number] Case Date: 12/05/2014 Surgeon: Surgeon(s) and Role: [...] images and agree with bren soto interpretation. ?January Maureen Gaona MD Electronically Signed Final Report ?? 09:31 am Narrative 01/20/2015 9:31 AM EDT Renal ?(Signed Final 01/20/2015 09:31 am) Patient Info ID #: ? [id number] ?: [birth year] (69 yrs) Name: ? MARKOS BARRIGA ? Visit Date: 01/20/2015 09:11 am Performed By Performed By: ? Maria Alejandra De La Garza RDMS Attending: ?Rosario Gaona MD, se. Referred By: ?TYRONE MEDRANO MD Service(s) Provided ??URETRO - Retroperitoneal Complete - I [id number] ? [id number] Indications ??S/p RIGHT SWl and Stent removal?resid [...] 09:31 am ) Patient Info ID #: [id number] : [birth year] (69 y rs) Name: MARKOS BARRIGA Visit Date: 01/08 09:11 am Performed By Performed By: Maria Alejandra De La Garza RDMS Attending: January Gaona MD Referred By: TYRONE MEDRANO MD Service(s) Provided URETRO - Retroperitoneal Complete - [place] [id number] Indications S/p RIGHT SWl and Stent removal?residua [...] Electronically Signed Final Report 01/20 09:31 am MD YAMEL Louise Jr. US GEN ORDERABLES XR Abdomen 1 View [...] longer visualize d. Tyrone Medrano Jr., MD [place] DX ORDERABLES Urine culture (12/05/2014 12:43 PM EDT) [facility] Method Time Signature Urine Culture No growth CERNER (Less than MILLENNIUM 100 cfu/ml). Specimen Anatomical Collection Method Collection Time Receive d Time (Source) Location / / Volume Laterality Urine specimen 12/05/2014 12:43 5 3:05 (specimen) PM EDT PM EDT Resulting Agency Comment Spec In Lab Tyrone Medrano Jr., MD MICROBIOLOGY - GENERAL ORDER QUIN Performing Organization Address City/State/ZIP Code Phon e Number RYLIE [place] [id number] LUCILLE AIMM [employer] XR Abdomen Routine (12/05/2014 11:40 AM EDT) [...] ORDR/RSLT documented in this encounter Visit Diagnoses Diagnosis Hydronephrosis with obstructing calculus Hydronephrosis Hydronephrosis with obstructing calculus Hydronephrosis Hydronephrosis with obstructing calculus Hydronephrosis documented in this encounter Active and Recently Administered Medications Times are shown in EDT. Scheduled Medication Order 12/03/2014 12/04/2014 12/05/2014 ampicillin 2g vial attach to sodium chlo ride 0.9% 100 mL Mini-Bag Plus (COMPLETED) 1219 (Given - Provid er: Amrita Pacheco MD) 2,000 mg (2 g), Intravenous, DATA SYSTEMS MANAGER TO O.R., 1 dose, 12/06/14 at 0000, for 15 Minutes, Day of Surgery (Day of Procedure), Indication for (Active or Suspected): Prophylaxis gentamicin (GARAMYCIN) 266.8 mg in sodium chloride 0.9% 106.67 m L (COMPLETED) 1219 (Given - Provider: Amrita Pacheco MD) 266.8 mg (rounded from 266.7 mg = 3 mg/k g/dose ? 88.9 kg), Intravenous, DATA SYSTEMS MANAGER TO O.R., 1 dose, 12/05/14 at 1145, for 60 Minutes, Day of Surgery (Day of Procedure), Indication for (Active or Susp ected): Urinary Tract/Pyelonephritis documented in this encounter Care Teams Driver License Examiner Relationship Specialty Start Date End Date Rasheeda Reyes MD PCP - General 11/19/[address] [place] [address] documented as of this encounter
== END 2021-11-05 01:26 | disposition home or self-care (01) ==
LOC: LBO 01:25
PROVIDERS: PCP Internal Medicine; Visit Provider Internal Medicine

== ENCOUNTER 2022-08-23 01:14 | Outpatient (CLI) | payer MEDICARE, SELFPAY ==
--- NOTE | 2022-08-23 08:26 | DI.CTLCSR_ITS ---
Exam(s) CT CHEST LUNG CANCER SCREEN EXAM: CT CHEST LUNG CANCER SCREEN CLINICAL HISTORY: Screening for lung cancer,former smoker, z87.891 TECHNIQUE: Imaging Protocol: Axial computed tomography images with coronal and sagittal reformatted images were created and reviewed COMPARISON: CT CT CHEST LUNG CANCER SCREEN from 02/05/2021 FINDINGS: Tracheobronchial tree: Patent where visualized. Pulmonary parenchyma: No consolidation or dominant measurable mass. No architectural distortion. Lung Nodules: None. Mediastinum and Gertrude: No dominant adenopathy or fluid collection. The esophagus is unremarkable. Thyroid gland: Unremarkable. Lymph nodes: Unremarkable. Pleura: No effusion or pneumothorax. Heart: The heart is not dilated. Marked coronary artery calcification and/or stents are noted. No pe ricardial effusion. Aorta: Thoracic aorta non-dilated.Atherosclerosis is present. Upper abdomen: There is a 4 mm nonobstructing stone in the right kidney. Soft Tissues: Unremarkable. Bones: Within normal limits. IMPRESSION: No pulmonary nodules. Lung RADS Cat 1 - Negative: No nodules and definitely benign nodules Lung-RADS 1.0 CATEGORIES: Category 0 - Prior chest CT exam(s) being located for comparison. Category 1 - Annual screening in 12 months. No nodules or definitely benign nodules. Category 2 - Annual screening in 12 months. Benign appearance. Nodules with low likelihood of becomin g active cancer. Category 3 - 6-month follow-up. Probably benign. Short-term follow-up suggested. Nodules with low lik elihood of becoming active cancer. Category 4A - 3-month follow-up and CT/PET if >8 mm in size. Suspicious finding. Findings which requi re additional testing. Category 4B - Findings which require additional testing and tissue sampling. Suspicious finding. Category 4X - Category 3 or 4 nodules with additional features or imaging findings that increases the suspicion of malignancy. Modifier S- Potentially clinically significant finding. (Non lung cancer) RADIATION DOSE DELIVERED: 84.23mGy.cm Total DLP 84.23mGy.cmTotal DLP DATA REPOSITORY: All CT scans at this facility are submitted to the National Radiology Data Registry (NRDR) Dose Index Registry (DIR) with the [employer] (ACR). RADIATION OPTIMIZATION: All CT scans at this facility use at least one of these dose optimization te chniques: automated exposure control; mA and/or kV adjustment per patient size (includes targeted exa ms where dose is matched to clinical indication); or iterative reconstruction.
== END 2023-01-25 13:43 ==
PROVIDERS: PCP Student in an Organized Health Care Education/Training Program; Visit Provider Internal Medicine
DX: Z87.891 Personal history of nicotine dependence (principal); Z12.2 Encounter for screening for malignant neoplasm of respiratory organs
CPT/HCPCS: 71271

== ENCOUNTER 2022-10-13 02:05 | Outpatient (CLI) | payer MEDICARE, SELFPAY ==
--- NOTE | 2022-10-13 09:45 | DI.RAD_ITS ---
Exam(s) XR KNEE RT 4V AP,LAT,SHANTEL,PAT EXAM: XR KNEE RT 4V AP,LAT,SHANTEL,PAT CLINICAL HISTORY: eval med spacing, patellar abnl, LUCY KNEE PAIN, BURSITIS, M25.561, M25.562. TECHNIQUE: 2D digital imaging was performed. Three views. COMPARISON: CR RIGHT KNEE 3 VIEWS from 04/19/2017 CR XR KNEE LT 4V AP,LAT,SHANTEL,PAT from 10/13/2022 FINDINGS: BONES: No acute fracture is present. No bony destructive lesion is seen. JOINTS: There is a moderate narrowing of the medial femoral tibial joint space and periarticular spur ring. Lateral joint space is maintained. Patellofemoral joint is also maintained. No joint effusio n is seen. SOFT TISSUE: Normal. 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
--- NOTE | 2022-10-13 09:53 | DI.RAD_ITS ---
Exam(s) XR KNEE LT 4V AP,LAT,SHANTEL,PAT EXAM: XR KNEE LT 4V AP,LAT,SHANTEL,PAT CLINICAL HISTORY: eval med spacing, patellar abnL, LUCY KNEE PAIN, BURSITIS, M25.561, M25.562. TECHNIQUE: 2D digital imaging was performed. Three views. COMPARISON: CR LEFT KNEE 3 VIEW COMPLETE from 04/19/2017 FINDINGS: BONES: No acute fracture is present. No bony destructive lesion is seen. JOINTS: There is moderate to severe narrowing of the medial femoral tibial joint space and periarticu lar spurring with some progression compared to 2018. The lateral joint spaces and patellofemoral dillan nt are maintained. No joint effusion is seen. SOFT TISSUE: Normal. 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 DATA REPOSITORY: RADIATION DOSE DELIVERED:
== END 2022-10-13 02:25 ==
LOC: DI 02:05
PROVIDERS: PCP Student in an Organized Health Care Education/Training Program; Visit Provider Student in an Organized Health Care Education/Training Program
DX: M25.561 Pain in right knee (principal); M25.562 Pain in left knee; M70.51 Other bursitis of knee, right knee; M70.52 Other bursitis of knee, left knee; M70.50 Other bursitis of knee, unspecified knee
CPT/HCPCS: 73564

== ENCOUNTER 2022-10-13 10:52 | Outpatient (CLI) | payer MEDICARE, SELFPAY ==
[2022-10-13 10:59] LABS: Anion Gap 13.6 mmol/L (3-11); BUN 17 mg/dL (7-18); CO2 24.4 mmol/L (21.0-32.0); CREATININE 1.4 mg/dL (0.55-1.02); Calcium 9.2 mg/dL (8.5-10.1); Calculated LDL 76 mg/dL (<100); Chloride 101 mmol/L (98-107); Cholesterol 158 mg/dL (<200); Estimated GFR 38.99 (mL/min/1.73m2); Glucose 153 mg/dL (74-106); HDL Cholesterol 57 mg/dL (40-60); Potassium 4.1 mmol/L (3.5-5.1); Sodium 139 mmol/L (136-145); Triglyceride 125 mg/dL (<150)
[2022-10-13 11:10] LABS: Hemoglobin A1C 6.1 % (<5.7)
[2022-10-13 11:16] LABS: Microalb ug/mg Crea 10.9 ug/mg Cr
== END 2022-10-13 10:53 | disposition home or self-care (01) ==
LOC: LBO 10:53
PROVIDERS: PCP Student in an Organized Health Care Education/Training Program; Visit Provider Student in an Organized Health Care Education/Training Program
DX: E11.9 Type 2 diabetes mellitus without complications (principal); N18.9 Chronic kidney disease, unspecified; R79.89 Other specified abnormal findings of blood chemistry
CPT/HCPCS: 36415; 80048; 80061; 82043; 82570; 83036

== ENCOUNTER 2023-06-12 05:25 | Observation (INO) | payer MEDICARE, SELFPAY ==
[2023-06-12] VITALS (31 sets, daily range): BP systolic 102–200; BP diastolic 54–78; PULSE 61–85; RESP 8–20; TEMP 36.2–36.8; O2SAT 85–97
--- NOTE | 2023-06-12 04:30 | RT.EKG_ITS ---
APPROVED REPORT Exam: Resting ECG Reason for Exam: dizziness Patient Location: E HR:76 bpm ECG Measurements Heart Rate 76 AXIS SD 222 P 5 QRSd 91 QRS 8 QT 390 T 32 QTc 438 Conclusion Sinus rhythm...normal P axis, V-rate 60- 99 Prolonged SD interval...SD >220, V-rate 50- 90 Low voltage, precordial leads...precordial leads <1.0mV Narrow complex normal sinus rhythm at a rate of 76. Normal axis. Mild ST segment depressions left c hest wall leads. Low voltage chest wall leads. First-degree AV block. QTc within normal limits. N o prior for comparison.
--- NOTE | 2023-06-12 04:31 | ED.GENADUL_ITS ---
Discharge Plan Disposition Patient Disposition: Admit to [facility] Discharge Details Chief Complaint: Dizzy/Sync Clinical Impression: Vertigo, Nausea & vomiting Primary Care Provider: Sydney Sharp ED Provider: Gary Anderson Duncan Meds and New Rx's Prescriptions: No Action aspirin 81 mg tablet,delayed release (DR/EC) 81 mg PO DAILY hydrochlorothiazide 12.5 mg tablet 12.5 mg PO QAM Qty: 90 3RF olmesartan 20 mg tablet 20 mg PO DAILY Qty: 90 3RF rosuvastatin [Crestor] 20 mg tablet 20 mg PO DAILY Qty: 90 3RF omega-3 fatty acids 1,000 mg capsule 1,000 mg PO DAILY ascorbate calcium (vitamin C) 500 mg tablet 500 mg PO DAILY cholecalciferol (vitamin D3) [Vitamin D3] 2,000 UNIT tablet 2,000 unit PO DAILY acetaminophen [Acetaminophen Extra Strength] 500 MG tablet 500 mg PO BID PRN magnesium 250 MG tablet 1 tab PO DAILY potassium gluconate 99 MG tablet 99 mg PO DAILY lorazepam 0.5 mg tablet 0.5 mg PO BID PRN (Reason: anxiety) Qty: 5 1RF Rx Instructions: 1/2 to 1 tab BID prn anxiety miguel 12.5 mg DAILY HPI General Date/Time Provider Initiated Documentation: 06/12/23 05:41 . HPI Narrative: MDM This is a hypertensive but normothermic and not tachycardic 77-year-old female with sudden onset dizziness and vascular risk factors of hypertension diabetes and hyperlipidemia concerning for possibility of posterior circulation CVA. Patient has no acute neurological deficits so I do not feel that she is a tPA candidate. Given concern for CVA versus TIA I do feel that if the patient has a normal CT scan she will benefit from hospitalization and an MRI. No tonic- clonic activity to suggest seizure so no indication for EEG. No nuchal rigidity to suggest meningitis so I do not feel that the patient requires a lumbar puncture. Not altered to suggest encephalitis. Patient has no aphasia neglect or drift based on fast ED score I did not feel that the patient was likely to have a large vessel occlusion nor be a candidate for thrombectomy so did not complete a CT angiogram of the patient's head nor neck. If dry CT head is reassuring we will order MRI with vessel imaging. No chest pain to suggest ACS nor dissection. No pain out of proportion to suggest necrotizing soft tissue infection. Soft nontender abdomen with no abdominal pain to suggest intra- abdominal process. No difficulty breathing nor tachycardia nor chest pain so doubt PE. No recent chiropractic manipulation to suggest increased risk for cervical arterial dissection. Patient does have a history of vertigo however based on her vascular risk factors I am concerned about possibility of CVA versus TIA. While patient's low NIH stroke scale is reassuring my concern remains for posterior circulation CVA which is not well reflected on the NIH stroke scale. Patient had no nystagmus so I did not apply the hints exam. Will attempt treatment with ondansetron. No obvious echocardiogram in our system. Given vascular risk factors and concern for CVA patient will likely require hospitalization if her CT is reassuring for MRI and TTE with bubble study. 5:18 AM CBC lacks anemia thrombocytopenia and leukocytosis. Negative initial troponin. Comprehensive metabolic panel shows no JOSE ROBERTO. Mild hyperglycemia and mild anion gap but normal bicarbonate??not consistent with DKA. No acute electrolyte abnormalities. No acute LFT abnormalities. 5:[address] scan read as showing no acute findings.Patient still nauseous and dizzy. Will have treatment with meclizine but will also order MRI with vessel imaging and TTE with bubble study and speak with hospitalist with request for hospitalization. She has an elevated ABCD 2 score for TIA of 5 points making her moderate risk. I treated her with 324 mg of aspirin. 6:10 AM I spoke with Dr. Lomas who agreed graciously to hospitalize the patient. Chronic conditions affecting the care of the patient: Elevated BMI, diabetes, hypertension, hyperlipidemia History obtained from an outside historian: Paramedics External record review: [facility] EMR Diagnostic interpretations performed by me: Per my independent interpretation chest x-ray shows: No acute cardiopulmonary process Per my independent interpretation EKG shows: Narrow complex normal sinus rhythm at a rate of 76. Normal axis. Mild ST segment depressions left chest wall leads. Low voltage chest wall leads. First-degree AV block. QTc within normal limits. No prior for comparison. Medications: Ondansetron Social determinants of health affecting disposition: N/A Management discussed with: hospitalist Treatment/interventions considered: N/A Response to therapies provided: N/A HPI This is a 77-year-old female with a history of diabetes, hypertension, hyperlipidemia arrived to the emergency department via EMS in the setting of sudden onset dizziness. Patient reports that she was lying on the couch drifting in and out of sleep at approximately 1 AM when she suddenly felt dizzy. She had no pain. She felt very unsteady. She felt generally weak. She had difficulty walking. She sat up and had difficulty holding her balance. She was able to walk to the sink and began feeling nauseous and vomiting. She denies abdominal pain chest pain and difficulty breathing. She denies any routine tobacco, ethanol, and illicits. She does have a history of TIA. She has had no recent fevers. No recent changes in her medications. Exam General: Chronically ill-appearing in no acute distress speaking in complete sentences. Head: Normocephalic, atraumatic. Eye:[Pupils equal, round reactive to light.] Extraocular eye movements intact. No conjunctival injection. No scleral icterus. No nystagmus. Ear, nose, mouth, throat: Grossly normal inspection. Normal voice, handling secretions normally. Neck: Trachea midline. Cardiovascular: Well-perfused distal extremities. Regular rate and rhythm Respiratory: Nonlabored respiration. Clear lungs bilaterally Gastrointestinal: Nondistended abdomen. Soft nontender Musculoskeletal: Mild bilateral 1+ lower extremity nonpitting edema. Moving all 4 extremities spontaneously. Skin: Normal for age and race, grossly normal temperature and turgor. No acute rash. Neurologic: Alert and appropriate, no apparent acute deficits. GCS 15. NIH stroke scale 0. Cranial nerves II through XII intact grossly. 5 out of 5 upper and lower extremity strength. No dysmetria. No dysdiadochokinesia. No truncal ataxia. No aphasia. No neglect. No dysarthria. Psychiatric: Mood and manner are appropriate. Grooming and personal hygiene are appropriate. Related Data Home Medications Medication Instructions Recorded Confirmed cholecalciferol (vitamin D3) 50 2,000 unit PO DAILY 07/02/12 06/12/23 mcg (2,000 unit) tablet (Vitamin D3) acetaminophen 500 mg tablet 500 mg PO BID PRN 01/07/15 06/12/23 (Acetaminophen Extra Strength) magnesium 250 mg tablet 1 tab PO DAILY 06/17/15 06/12/23 potassium gluconate 595 mg (99 mg) 99 mg PO DAILY 10/04/17 06/12/23 tablet aspirin 81 mg tablet,delayed 81 mg PO DAILY 12/11/18 06/12/23 release ascorbate calcium (vitamin C) 500 500 mg PO DAILY 10/06/22 06/12/23 mg tablet hydrochlorothiazide 12.5 mg tablet 12.5 mg PO QAM #90 tabs 10/06/22 06/12/23 olmesartan 20 mg tablet 20 mg PO DAILY #90 tabs 10/06/22 06/12/23 omega-3 fatty acids 1,000 mg 1,000 mg PO DAILY 10/06/22 06/12/23 capsule rosuvastatin 20 mg tablet (Crestor) 20 mg PO DAILY #90 tab-caps 10/06/22 06/12/23 lorazepam 0.5 mg tablet 0.5 mg PO BID PRN anxiety #5 tabs 10/25/22 06/12/23 miguel 12.5 mg DAILY 06/12/23 Previous Rx's Medication Instructions Recorded hydrochlorothiazide 12.5 mg tablet 12.5 mg PO QAM #90 tabs 10/06/22 olmesartan 20 mg tablet 20 mg PO DAILY #90 tabs 10/06/22 rosuvastatin 20 mg tablet (Crestor) 20 mg PO DAILY #90 tab-caps 10/06/22 lorazepam 0.5 mg tablet 0.5 mg PO BID PRN anxiety #5 tabs 10/25/22 Allergies Allergy/AdvReac Type Severity Reaction Status Date / Time sertraline AdvReac Mild Excessive Verified 06/12/23 04:50 sleepiness Medical Decision Making Quality:SDOH Health Related Social Needs: No Data to Display PFSH All Active Problems (Updated 06/12/23 @ 06:38 by Gary Anderson MD) Nausea & vomiting (Acute) Vertigo (Acute) Back pain (Acute) CKD (chronic kidney disease) stage 3, GFR 30-59 ml/min (Acute) Coronary artery calcification seen on CT scan (Acute) Heart: The heart is not dilated. Marked coronary artery calcification and/or stents are noted. No pericardial effusion. per 08/2022 Knee pain, bilateral (Acute) Family hx of lung cancer (Acute) Family history of breast cancer (Acute) Social isolation (Acute) henry fall/winter .. SAD? Hearing loss (Acute) History of tobacco use (Chronic) 40+ pk yrs, quit 2014 Chronic kidney disease (CKD) (Chronic) Social anxiety disorder (Chronic 05/10/16) Episodic, Hx lorzpm when traveling to son/dtr-in-law Pure hypercholesterolemia (Chronic 11/05/12) Essential hypertension (Chronic 07/17/13) Diabetes mellitus (Chronic 07/31/12) Medical History (Updated 06/12/23 @ 06:38 by Gary Anderson MD) Tobacco use disorder (11/05/12) smoked 40 yrs. quit 11/18/14 Obesity, unspecified (11/05/12) Left nephrolithiasis (11/25/14) 11/19/14 w/Obstruction and Bacteremia--s/p Stent 11/20/14 at [facility] and [facility] 11/22/14. H/O TIA (transient ischemic attack) and stroke (07/17/13) Depression (09/03/14) Surgical History (Updated 01/24/18 @ 14:35 by [employer]) nuclear/cortical cataract,right eye (10/23/17) . Ligation of fallopian tube Colonoscopy - IV Sedation Biopsy of breast Family History Mother Hypertensive disorder, systemic arterial Father Personal history of malignant neoplasm prostate Sister Personal history of malignant neoplasm uterine ca, breast ca Brother Hypertensive disorder, systemic arterial Family history of stroke Brother Personal history of malignant neoplasm Lung CA Sister Diabetes Brother Hypertensive disorder, systemic arterial Heart disease Brother Hypertensive disorder, systemic arterial Hearing loss Brother Heart disease Brother Hypertensive disorder, systemic arterial Heart disease Social History (Updated 10/26/21 @ 09:25 by Brea Veliz LPN) Smoking/Tobacco Use Status: Former Tobacco Use Smoking risk assessment performed?: Yes Alcohol Intake: never Drug use: Never Substance use type: does not use Household members: none Housing: apartment Number of Children: 1 number of grandchildren: 1 Communication Needs: Corrective Lenses current occupation: Retired [employer] What is your relationship status?: Panel score (0-1 are the most socially isolated patients): 0 What type of physical activity do you participate in: none Seatbelt use: always Drive intox or ride w/intox 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
--- NOTE | 2023-06-12 05:00 | DI.CT_ITS ---
Exam(s) CT HEAD - STROKE PROTOCOL EXAM: CT HEAD - STROKE PROTOCOL CLINICAL HISTORY: Dizziness. TECHNIQUE: Imaging Protocol: Axial computed tomography images with coronal and sagittal reformatted images were created and reviewed COMPARISON: No exams were available for comparison FINDINGS: Ventricles and Extra axial spaces: Normal in size and morphology for the patient's age. Hemorrhage: None. Cerebral parenchyma: No evidence of acute infarct or mass. Mild atrophy. White matter changes of s mall vessel disease. Midline shift: None. Brainstem/Cerebellum: Normal. Calvarium: Normal. Visualized Paranasal sinuses:Clear. Mastoids: Clear. Soft Tissues: Unremarkable. ORBITS: Unremarkable. PITUITARY: Not enlarged. IMPRESSION: No acute intracranial process. RADIATION DOSE DELIVERED: 679.6mGy.cm Total DLP DATA REPOSITORY: All CT scans at this facility are submitted to the National Radiology Data Registry (NRDR) Dose Index Registry (DIR) with the [employer] (ACR). RADIATION OPTIMIZATION: All CT scans at this facility use at least one of these dose optimization te chniques: automated exposure control; mA and/or kV adjustment per patient size (includes targeted exa ms where dose is matched to clinical indication); or iterative reconstruction.
--- NOTE | 2023-06-12 05:00 | DI.RAD_ITS ---
Exam(s) XR CHEST 1V IN DI DEPT EXAM: XR CHEST 1V IN DI DEPT CLINICAL HISTORY: Dizziness TECHNIQUE: 2D digital imaging was performed. COMPARISON: No exams were available for comparison FINDINGS: Exam limited by under penetration at the bases. LUNGS: Clear. No pleural abnormality seen. HEART: Normal size. AORTA: Normal diameter. BONES: Unremarkable for age. Soft tissues: Unremarkable. IMPRESSION: No acute findings. DATA REPOSITORY: RADIATION DOSE DELIVERED:
[2023-06-12] MEDS: Ondansetron 4 MG/2 ML VIAL IVP (05:11)
[2023-06-12 05:14] LABS: Abs Immature Grans 0.05 10^3/uL (0.0-0.06); Absolute Basophil Count 0.03 10^3/uL (0.0-0.2); Absolute Eosinophil Count 0.15 10^3/uL (0.0-0.7); Absolute Lymphocyte Count 1.04 10^3/uL (1.2-3.4); Absolute Monocyte Count 0.46 10^3/uL (0.1-0.8); Absolute Neutrophil Count 4.08 10^3/uL (1.2-6.7); Basophils % 0.5; Eosinophils % 2.6; HCT 40.3 % (36.0-46.0); HGB 13.5 g/dL (11.2-15.7); Immature Grans % 0.9; Lymphocytes % 17.9; MCH 29.4 pg (27.0-33.0); MCHC 33.5 % (32.0-36.0); MCV 88 fL (80-95); MPV 9.2 fL (8.0-11.0); Monocytes % 7.9; Neutrophils % 70.2; Platelet Count 205 10^3/uL (130-400); RBC 4.59 10^6/uL (3.93-5.22); RDW 12.8 % (11.7-14.6); RDW-SD 40.9 fL; WBC 5.81 10^3/uL (4.4-10.8)
[2023-06-12] MEDS: Midazolam 2 MG/2 ML VIAL IVP (05:26)
[2023-06-12 05:35] LABS: ALT 23 U/L (14-59); AST 14 U/L (15-37); Albumin 3.5 g/dL (3.4-5.0); Alkaline Phosphatase 63 U/L (46-116); Anion Gap 11.8 mmol/L (3-11); BUN 16 mg/dL (7-18); Bilirubin, Total 0.7 mg/dL (0.2-1.0); CO2 25.2 mmol/L (21.0-32.0); CREATININE 1.3 mg/dL (0.55-1.02); Calcium 9.2 mg/dL (8.5-10.1); Chloride 102 mmol/L (98-107); Estimated GFR 42.62 (mL/min/1.73m2); Glucose 154 mg/dL (74-106); Potassium 3.7 mmol/L (3.5-5.1); Sodium 139 mmol/L (136-145); Troponin I < 50 ng/L (< or =60)
--- NOTE | 2023-06-12 05:45 | DI.MRI_ITS ---
Exam(s) MR ANGIO NECK WO EXAM: MR ANGIO NECK WO CLINICAL HISTORY: Dizziness. TECHNIQUE: 2D and 3D [id number] MRA of the Neck was performed. COMPARISON: No exams were available for comparison FINDINGS: The 2D images are limited by motion artifact. 3D hevs-[id number] images were also somewhat limited Common Carotid: Right: No dissection, occlusion or significant stenosis. Left: No dissection, occlusion or significant stenosis. External Carotid: Right: No evidence of occlusion or significant stenosis. Left: Question [id number] narrowing at the origin. No evidence of occlusion or significant michel nosis. Internal Carotid: Right: No dissection, occlusion or significant stenosis. Left: Question moderate to severe narrowing of small internal carotid artery. No dissection, occlusi on or significant stenosis. Vertebral Artery: Right: No dissection, occlusion or significant stenosis. Left: No dissection, occlusion or significant stenosis. The visualized paraspinal soft tissues are unremarkable. IMPRESSION: Limited exam due to motion. There is a question moderate to severe narrowing at the proximal left internal carotid artery as well as proximal left external carotid artery. Ultrasound could be consid ered for further evaluation. DATA REPOSITORY:
--- NOTE | 2023-06-12 05:45 | DI.MRI_ITS ---
Exam(s) MR BRAIN WO EXAM: MR BRAIN WO CLINICAL HISTORY: Dizziness TECHNIQUE: Multiplanar multisequence MRI of the brain was performed. COMPARISON: CT CT HEAD - STROKE PROTOCOL from 06/12/2023 MR MR ANGIO BRAIN WO from 06/12/2023 FINDINGS: VENTRICLES AND EXTRA AXIAL SPACES: Normal in size and morphology for the patient's age. MIDLINE SHIFT: None. CEREBRAL PARENCHYMA: No focus of restricted diffusion to suggest acute infarct. No space-occupying le rufus identified. Mild atrophy consistent with the patient's age. Mild scattered foci of high signal in the white matter consistent with sequela of chronic microvascular disease. HEMORRHAGE: None. BRAINSTEM/CEREBELLUM: Normal. VISUALIZED PARANASAL SINUSES/MASTOIDS:Clear. Vasculature: Normal flow void. PITUITARY GLAND: Unremarkable. ORBITS: Unremarkable. IMPRESSION: White matter changes consistent with microvascular disease. No acute abnormality. DATA REPOSITORY:
--- NOTE | 2023-06-12 05:45 | DI.US_ITS ---
APPROVED REPORT EXAM: Comprehensive 2D, Doppler, and color-flow Echocardiogram Patient Location: In-Patient Application Development Team Lead: Mica Oconnor RDCS (AE) Indications: ?TIA vs CVA Echo Enhancing Agent Indication: Rule out Shunt Agent(s) / Amount(s) Used: Agitated Saline 30.0 cc Comments: Contrast study was performed with 3 IV injections of 10ccs of agitated normal saline, at re st, with cough and post valsalva maneuver. Negative contrast study for shunt flow. Other Information Study Quality: Adequate. Technically limited study due to body habitus. Conclusion Normal left ventricular wall thickness and chamber size. Ejection fraction is 55-60%. Wall motion i s normal. Diastolic function is normal for age Normal right ventricular size and function Both atria are normal size No intracardiac shunt is identified with injection of saline Aortic valve is not well-visualized. There is trace to mild aortic regurgitation Estimated right ventricular systolic pressure is 29 mmHg Borderline dilated aortic root and ascending aorta Wall motion Left Ventricle The left ventricle is normal size. The left ventricular systolic function is normal. The left ventric ular ejection fraction is within the normal range. There is normal left ventricular wall thickness. T here is normal LV segmental wall motion. There is no ventricular septal defect visualized. LVEF is 57 %. Right Ventricle The right ventricle is normal size. The right ventricular systolic function is normal. Atria The left atrium size is normal. The right atrium size is normal. The interatrial septum is intact wit h no evidence for an atrial septal defect. Saline bubble contrast intravenous injection does not demo nstrate PFO. Aortic Valve The aortic valve is not well visualized. Number of aortic valve leaflets could not be assessed. There is no aortic valvular stenosis. Trace to mild aortic regurgitation. Mitral Valve The mitral valve is normal in structure. No evidence of mitral valve stenosis. Trace to mild mitral r egurgitation. Tricuspid Valve The tricuspid valve is normal in structure. There is no tricuspid valve stenosis. Trace tricuspid reg urgitation. The RVSP is 28.6mmHg. Pulmonic Valve Pulmonic valve is not well visualized. There is no pulmonic valvular stenosis. There is no pulmonic v alvular regurgitation. Great Vessels Aortic root is mildly dilated. The ascending aorta is mildly dilated. Aortic arch is not well visual ized. IVC is normal in size and collapses >50% with inspiration. Pericardium There is no pericardial effusion. 2D Dimensions IVSD d PLAX 1.00 cm F: 0.6-1.0 Ao Root d 3.42 cm F: 2.7 - 3.3 LVPW d PLAX 1.00 cm F: 0.6 - 1.0 Ao Asc Diam d 3.54 cm F: 2.3 - 3.1 LVID d PLAX 4.37 cm F: 3.8 - 5.2 LVDs 2.99 cm F: 2.2 - 3.5 LV EF Teichholz 59.6 % FS 31.49 % LV EDV (Teich) 86.3 mL LV ESV (Teich) 34.8 mL M-Mode TAPSE 2.41 cm (M/F) >1.7 Auto EF LV EDV A4C 73.1 mL LV EDV A2C 83.6 mL LV EDV BP 78.3 mL LV ESV A4C 31.9 mL LV ESV A2C 36.3 mL LV ESV BP 34.3 mL LVEF(%) A4C 56.5 % LVEF(%) A2C 56.6 % LVEF(%) BP 56.2 % LV SV A4C 41.3 ml LV SV A2C 47.4 ml LV SV BP 44.0 ml LV CO A4C 2.5 L/min LV CO A2C 3.0 L/min LV CO BP 2.8 L/min HR A4C 61.31 BPM HR A2C 63.92 BPM LV EDV Index (BP) LV Strain Long Pk Overal Avg (s) 18.76 RV Strain Global Peak Long. Strain A4C 15.69 Global Peak Long. Strain A4C FW 15.71 LA Volume LA Length A4C 5.0 cm LA Length A2C 5.0 cm LA Area A4C s 13.37 cm2 LA Area A2C s 16.17 cm2 LA Vol A4C A-L 30.29 mL LA Vol A2C A-L 44.56 mL LA Vol Biplane A-L 36.8 mL LA Vol/BSA A4C A-L LA Vol/BSA A2C A-L LA Vol/BSA BP A-L 17.4 mL/m2 LA Vol A4C MOD 28.1 mL LA Vol A2C MOD 41.9 mL LA Vol BP MOD 34.3 mL RA Volume RA Area A4C 9.7 cm2 RA ESV A4C (A-L) 19.8mL RA Vol/BSA A4C A-L RA Length A4C 4.0 cm RA ESV A4C (MOD) 19.2mL LV Diastology MV E' medial 0.082 (>0.07 m/s) MV E Vmax 0.80 (0.4-1.3 m/s) MV E/E' MED 9.77 (<14) MV A Vmax 1.15 (0.4-1.3 m/s) MV E' lateral 0.087 (>0.1 m/s) E/A Ratio 0.7 MV E/E' LAT 9.17 (<14) MV E' Average 0.085 m/s MV E/E'(average) 9.46 Aortic Valve AoV Vmax 1.81 m/s LVOT Vmax 1.33 m/s AoV Peak Grad 37.8 mmHg LVOT Peak Grad 7.0 mmHg AoV Area (Vmax) 1.98 cm2 LVOT VTI 0.314 m AoV VTI 0.387 m LVOT Mean Grad 4.2 mmHg AoV Mean Misha. 1.23 m/s LVOT SV 85.06 mL AoV Mean Grad 6.9 mmHg LVOT Diam s 1.85 cm AoV Area (VTI) 2.20 cm2 AV Regurg Peak Gr. 62.45 mmHg Velocity Ratio 0.73 AR Decel [place] 1.7m/sec2 AR DT 2349 msec AR PHT 681 msec AR Vmax 3.95 m/s Mitral Valve MV DT 256 (160-240 msec) MV Vmax TIPS 1.13 m/s MV Mean Grad 2.0 (<2mmHg) MV VTI 0.359 m Pulmonary Valve PV Vmax 0.86 (0.5-1.5 m/s) RVOT Vmax 0.86 m/s PV Peak Grad 2.9 mmHg RVOT Peak Gr. 2.9 mmHg PV Mean Misha 0.65 m/s RVOT VTI 0.166 m PV Mean Grad 1.9 mmHg RVOT Mean Gr. 1.8 mmHg Tricuspid Valve RA Pressure 3.00 mmHg TR Vmax 2.53 m/s TV S' 0.14 m/s TR Peak Grad 25.6 mmHg RVSP (TR) 28.6 mmHg
--- NOTE | 2023-06-12 05:45 | DI.MRI_ITS ---
Exam(s) MR ANGIO BRAIN WO CLINICAL HISTORY: Dizziness. TECHNIQUE: 3D [id number]-[id number] study was performed without contrast. COMPARISON: None. FINDINGS: Carotid Arteries: Petrous: Normal. Cavernous: Normal. Cerebral: Normal. Middle Cerebral Arteries: Right: No aneurysm or significant stenosis. Left: No aneurysm or significant stenosis. Anterior Cerebral Arteries: Right: No aneurysm or significant stenosis. Left: No aneurysm or significant stenosis. Posterior cerebral arteries: Right: No aneurysm or significant stenosis Left: No aneurysm or significant stenosis Vertebral Arteries: Right: No aneurysm or significant stenosis. No dissection. Left: No aneurysm or significant stenosis. No dissection.. Basilar Artery: No aneurysm or significant stenosis. Small Vessels: No evidence of beading. IMPRESSION: Normal MRA examination of the [place] [employer] [place]. DATA REPOSITORY:
--- NOTE | 2023-06-12 05:49 | DI.VRAD_ITS ---
PROCEDURE INFORMATION: Exam: CT Head Without Contrast Exam date and time: 06/12/2023 5:33 AM Age: 77 years old Clinical indication: Stroke-like symptoms; Dizziness/giddiness and vomiting TECHNIQUE: Imaging protocol: Computed tomography of the head without contrast. Radiation optimization: All CT scans at this facility use at least one of these dose optimization techniques: automated exposure control; mA and/or kV adjustment per patient size (includes targeted exams where dose is matched to clinical indication); or iterative reconstruction. Other technique: STROKE PROTOCOL was implemented. COMPARISON: No relevant prior studies available. FINDINGS: Brain: Volume loss and chronic small vessel ischemic change. No brain edema. No intracranial hemorrhage. Cerebral ventricles: No ventriculomegaly. Paranasal sinuses: Visualized sinuses are unremarkable. No fluid levels. Mastoid air cells: Unremarkable. Bones/joints: Unremarkable. No acute fracture. Soft tissues: Unremarkable. IMPRESSION: No acute brain findings. Dictated and Authenticated by: Junior Grimm MD. Ordering:JULIA Vega MD
[2023-06-12] MEDS: Meclizine 25 MG TAB PO (06:00)
--- NOTE | 2023-06-12 06:02 | DI.VRAD_ITS ---
PROCEDURE INFORMATION: Exam: XR Chest Exam date and time: 06/12/2023 5:39 AM Age: 77 years old Clinical indication: Other: Dizziness TECHNIQUE: Imaging protocol: Radiologic exam of the chest. Views: 1 view. COMPARISON: CT CHEST LUNG CANCER SCREEN 08/23/2022 11:01 AM FINDINGS: Lungs: Unremarkable. No consolidation. Pleural spaces: Unremarkable. No pleural effusion. No pneumothorax. Heart/Mediastinum: Unremarkable. No cardiomegaly. Bones/joints: Unremarkable. IMPRESSION: No acute findings. Dictated and Authenticated by: Junior Grimm MD. Ordering:JULIA Vega MD
[2023-06-12] MEDS: Aspirin 81 MG CHEW 324 MG CH (06:15)
--- NOTE | 2023-06-12 06:35 | HPE_ITS ---
Date of service: 06/12/23 Time of Service: 06:47 Assessment and Plan Assessment and plan (1) Vertigo: Status: Acute Assessment and plan: Vertigo. Likely peripheral based on absence of collateral symptoms and normal exam, though patient has multiple vascular risk factors and small posterior circulation stroke possible. I think though this is unlikely. Nevertheless patient has been unable to navigate here in ER so will admit for PT and symptomatic treatment. Would also consider MRI to evaluate posterior fossa. Has had trial of Meclizine without subjective benefit, would consider trial Ativan and/or Dexamethasone. History of Present Illness History of Present Illness Chief Complaint: vertigo Narrative: 77 female with DM, HT<HLD -- here with sudden onset vertigo few huurs ago accompanied by nausea. No positional factor, just worse with any movement, tolerable if she stays absolutely still. No change vision, speech or focal motor.sensory symptoms. No CHERRY, no preceding URI, no ear pain or d/c. In ER exam unrevealing and CT head negative. I was asked to evaluate for admission as patient was unable to navigate without provoking vertigo and nausea. Review of Systems Narrative: per HPI PFSH All Active Problems Nausea & vomiting (Acute) Vertigo (Acute) Back pain (Acute) CKD (chronic kidney disease) stage 3, GFR 30-59 ml/min (Acute) Coronary artery calcification seen on CT scan (Acute) Heart: The heart is not dilated. Marked coronary artery calcification and/or stents are noted. No pericardial effusion. per 08/2022 Knee pain, bilateral (Acute) Family hx of lung cancer (Acute) Family history of breast cancer (Acute) Social isolation (Acute) henry fall/winter .. SAD? Hearing loss (Acute) History of tobacco use (Chronic) 40+ pk yrs, quit 2014 Chronic kidney disease (CKD) (Chronic) Social anxiety disorder (Chronic 05/10/16) Episodic, Hx lorzpm when traveling to son/dtr-in-law Pure hypercholesterolemia (Chronic 11/05/12) Essential hypertension (Chronic 07/17/13) Diabetes mellitus (Chronic 07/31/12) Medical History Tobacco use disorder (11/05/12) smoked 40 yrs. quit 11/18/14 Obesity, unspecified (11/05/12) Left nephrolithiasis (11/25/14) 11/19/14 w/Obstruction and Bacteremia--s/p Stent 11/20/14 at [facility] [place] and [facility] 11/22/14. H/O TIA (transient ischemic attack) and stroke (07/17/13) Depression (09/03/14) Surgical History nuclear/cortical cataract,right eye (10/23/17) . Ligation of fallopian tube Colonoscopy - IV Sedation Biopsy of breast Family History Mother Hypertensive disorder, systemic arterial Father Personal history of malignant neoplasm prostate Sister Personal history of malignant neoplasm uterine ca, breast ca Brother Hypertensive disorder, systemic arterial Family history of stroke Brother Personal history of malignant neoplasm Lung CA Sister Diabetes Brother Hypertensive disorder, systemic arterial Heart disease Brother Hypertensive disorder, systemic arterial Hearing loss Brother Heart disease Brother Hypertensive disorder, systemic arterial Heart disease Social History Smoking/Tobacco Use Status: Former Tobacco Use Smoking risk assessment performed?: Yes Alcohol Intake: never Drug use: Never Substance use type: does not use Household members: none Housing: apartment Number of Children: 1 number of grandchildren: 1 Communication Needs: Corrective Lenses current occupation: Retired [employer] What is your relationship status?: Panel score (0-1 are the most socially isolated patients): 0 What type of physical activity do you participate in: none Seatbelt use: always Drive intox or ride w/intox 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: No Working smoke detector in home: Yes Fire extinguisher in home: Yes Carbon monox detector in home: Yes Do you feel safe at home: Yes Meds Allergies and Home Medications Allergies Allergy/AdvReac Type Severity Reaction Status Date / Time sertraline AdvReac Mild Excessive Verified 06/12/23 04:50 sleepiness Home Medications Medication Instructions Recorded Confirmed Type cholecalciferol (vitamin D3) 50 2,000 unit PO DAILY 07/02/12 06/12/23 History mcg (2,000 unit) tablet (Vitamin D3) acetaminophen 500 mg tablet 500 mg PO BID PRN 01/07/15 06/12/23 History (Acetaminophen Extra Strength) magnesium 250 mg tablet 1 tab PO DAILY 06/17/15 06/12/23 History potassium gluconate 595 mg (99 mg) 99 mg PO DAILY 10/04/17 06/12/23 History tablet aspirin 81 mg tablet,delayed 81 mg PO DAILY 12/11/18 06/12/23 History release ascorbate calcium (vitamin C) 500 500 mg PO DAILY 10/06/22 06/12/23 History mg tablet hydrochlorothiazide 12.5 mg tablet 12.5 mg PO QAM #90 tabs 10/06/22 06/12/23 Rx olmesartan 20 mg tablet 20 mg PO DAILY #90 tabs 10/06/22 06/12/23 Rx omega-3 fatty acids 1,000 mg 1,000 mg PO DAILY 10/06/22 06/12/23 History capsule rosuvastatin 20 mg tablet (Crestor) 20 mg PO DAILY #90 tab-caps 10/06/22 06/12/23 Rx lorazepam 0.5 mg tablet 0.5 mg PO BID PRN anxiety #5 tabs 10/25/22 06/12/23 Rx miguel 12.5 mg DAILY 06/12/23 History Exam Narrative Exam Narrative: 158/59, 79, 36.7, 17, 97% RA. HEENT atraumatic, TM show chronic scarring right, no effusion or erythema; neck supple; lungs clear' heart RRR; abdomen soft and NT; extremities trace pedal edema; neuro Ox3, CN: PERRL, EOMI, caicedo full, no nystagmus; no facial asymettry, tongue midline; motor 5/5 proximal/distal; sensory intact light touch; FTN/HTS WNL Dunia-Hallpike maneuver showed no response AU Results Labs 06/12/23 04:55 06/12/23 04:55 Labs: Laboratory Results - last 24 hr 06/12/23 04:55 WBC 5.81 RBC 4.59 Hgb 13.5 Hct 40.3 MCV 88 MCH 29.4 MCHC 33.5 RDW 12.8 Plt Count 205 MPV 9.2 Immature Gran % 0.9 Neutrophils % 70.2 Lymphocytes % 17.9 Monocytes % 7.9 Eosinophils % 2.6 Basophils % 0.5 Nucleated RBC % 0.0 Absolute Neutrophils 4.08 Absolute Lymphocytes 1.04 L Absolute Monocytes 0.46 Absolute Eosinophils 0.15 Absolute Basophils 0.03 Sodium 139 Potassium 3.7 Chloride 102 Carbon Dioxide 25.2 Anion Gap 11.8 H BUN 16 Creatinine 1.3 H Est GFR (CKD-EPI 2020) 42.62 Glucose 154 H Calcium 9.2 Total Bilirubin 0.7 AST 14 L ALT 23 Alkaline Phosphatase 63 Troponin I < 50 Total Protein 7.0 Albumin 3.5 Last Vital Signs Temp 36.7 C 06/12/23 04:35 Pulse 79 06/12/23 06:15 Resp 17 06/12/23 06:20 BP 158/59 H 06/12/23 06:15 Pulse Ox 97 06/12/23 06:20 Time Spent Time spent with Patient: <40 minutes Time was spent: preparing to see the patient(eg.review tests), obtaining and/or reviewing separately otained hiistory, ordering medications,tests, procedures, referring, communicating with other health child care associate teacher and indepentently interpreting results
[2023-06-12] MEDS: Lactated Ringers 1,000 ML 75 ML IV (08:00)
[2023-06-12 08:34] LABS: Troponin I < 50 ng/L (< or =60)
--- NOTE | 2023-06-12 16:02 | IN_ITS ---
PT Notes Visit Reasons: vertigo Physical Therapy Inpatient Initial Evaluation Date: 06/12/2023 Referring Doctor: Marlon Lomas MD PT Orders: PT CONSULT: Limited ability Precautions: Fall. Standard. Activity as tolerated. Patient Profile/Admitting Diagnosis: Isaura is an 77-year-old female who presented to the ED on 06/12/2023 with complaints of unsteadiness as if being on the worst boat ride ever when she tried to stand up from her couch. She did not have a fall, instead felt off- balance on all sides. Patient is admitted to [facility] to rule out posterior circulation CVA and for continued monitoring of symptoms and PMHX: All Active Problems (Updated 06/12/23 @ 06:38 by Gary Anderson MD) Nausea & vomiting (Acute) Vertigo (Acute) Back pain (Acute) CKD (chronic kidney disease) stage 3, GFR 30-59 ml/min (Acute) Coronary artery calcification seen on CT scan (Acute) Heart: The heart is not dilated. Marked coronary artery calcification and/or stents are noted. No pericardial effusion. per nee pain, bilateral (Acute) Family hx of lung cancer (Acute) Family history of breast cancer (Acute) Social isolation (Acute) henry fall/winter .. SAD? Hearing loss (Acute) History of tobacco use (Chronic) 40+ pk yrs, quit 2014 Chronic kidney disease (CKD) (Chronic) Social anxiety disorder (Chronic 05/10/16) Episodic, Hx lorzpm when traveling to son/dtr-in-law Pure hypercholesterolemia (Chronic 11/05/12) Essential hypertension (Chronic 07/17/13) Diabetes mellitus (Chronic 07/31/12) Medical History (Updated 06/12/23 @ 06:38 by Gary Anderson MD) Tobacco use disorder (11/05/12) smoked 40 yrs. quit 11/18/14 Obesity, unspecified (11/05/12) Left nephrolithiasis (11/25/14) 11/19/14 w/Obstruction and Bacteremia--s/p Stent 11/20/14 at [facility] [place] and [facility] 11/22/14. H/O TIA (transient ischemic attack) and stroke (07/17/13) Depression (09/03/14) Surgical History (Updated 01/24/18 @ 14:35 by [facility] OR) Nuclear/cortical cataract,right eye (10/23/17) .Ligation of fallopian tube Colonoscopy - IV Sedation Biopsy of breast Social History/Home Situation: Lives alone in a private home. Independent with all aspects of ADLs prior to surgery. Still drives. Equipment Owned/DME: None Subjective: Patient was resting on her couch and when she attempted to get up, felt off- balance and dizzy. She verbalized feeling like she was on the worst boat ride ever. On interview and with intake of Mecliizine this afternoon, patient stated that her symptoms have significantly abated, denying lightheadedness with sitting up and during first Candie-Hallpike maneuver. She did report feeling dizzy after gaze stabilization exercises. Reported pain in neck which she has had for quite a while. Onset: ?06/12/2023 with attempt at sitting up/standing up from her couch Quality: Worst boat ride ever Duration: Persistent since onset however at time of eval, was minimal in intensity Previous Episodes: 2-3 years ago Exacerbating Factors: Symptomatic with head rotation/flexion/extension/lateral bending Headache: Early during onset, none at time of eval Neck ache: Minimal, chronic limitation with head rotation to R Nausea/Vomitting: None Hearing Loss: None Tinnitus: None Fullness in Ear: None Imbalance: Significant at time of onset, subsided at time of eval Red Flags: ? Visual changes: None; has had bilateral cataract surgery in the past ? Dysphagia or Dysarthria: None ? Facial Weakness: None ? Incoordination: None Prior Level of Function: Independent with all ADLs Current Level of Function: Mildly cautious with movement but managed to walk 300 feet with PROFILE STITCHING MACHINE OPERATOR after session (see PROFILE STITCHING MACHINE OPERATOR notes) Previous Treatment: None OBJECTIVE: Posture: Good upright posturing Observation: guarded movements, with limited head motions during gait, transfers and bed mobility Mental Status: A and O x 4 Vital Signs: Closely monitored by nursing staff ROM: Cervical ROM: R head rotation about 30 degrees, L less than 45 degrees. R later al flexion less than 10 degrees, L lateral rotation more than 10 degrees. Strength: Cervical muscle strength: 3-/5 Bed Mobility/Transfers: Rolling stand by assist Supine to sit stand by assist Sit to supine stand by assist Sit to stand stand by assist Stand to sit stand by assist Gait: Tolerates up to 25 feet + 25 feet without assistive device but of reduced gait speed from baseline per patient. Special Tests: ? Rhomberg: Minimal sway but no LOB ? Coordination: Intact ? Fine Motor: Intact ? Visual Tracking: Intact ? Head Thrust: Deferred, pain in neck Alar Ligament Test: Negative Sharp-Marilyn Test: Negative ? Greenfield-Halpike: No nystagmus seen nor symptom provocation duirng test for both sides ? Supine Roll Test: Negative Balance: Static Sitting: Good Dynamic Sitting: Good Static Standing: Good Dynamic Standing: Fair Special Tests: Mobility Limitations Standardized Measure [facility] 6 clicks Basic Mobility Inpatient Short Form: Raw Score: 23 CMS Score: 11% deficit Informed Consent/Education: Patient was instructed in purpose of PT consult and plan of care. Agreeable to proceed with performance of Greenfield-Hallpike maneuver to assess for BPPV. MANUAL THERAPY: -Gentle STM to B lev scapulae and upper traps with good response NEURO RE-ED: -Gaze stabilization exercises with good response ASSESSMENT: Chronic and worsened neck pain after having stayed/slept on her couch may have further strained her neck muscles and provoked acute vertiginous symptoms. Will attempt a second Cz-s-Hwjuibmp maneuver in case this test was a false negative one. Patient presents with clinical signs and symptoms consistent with current/admitting diagnoses that have resulted to mobility limitations, gait instability, generalized weakness, and overall ADL decline as demonstrated by the following impairment level findings: 1. Impaired sitting/standing balance 2. Impaired activity tolerance 3. Limitation of joint range of motion in cervical ROM 4. Sensation of spinning with positional change Impairments are contributing to the following functional limitations: 1. Increased completion time for mobility ADL performance 2. Increased risk for falls Patient is assessed as a 45063 low complexity based on the following: History: 86-year-old male with past medical history as indicated above Examination: Demonstrable impairment above Presentation: Evolving Decision Makin low complexity Goals: Patient will be independent with all mmobility ADL performance using no assistive device with no report of pain in the neck nor report of being 0ff- balanced. Plan of Care/Treatment Plan: Re-test for Candie-Hallpike to rule out BPPV. Assess for cervicogenic dizziness. Plan to see patient for oe more session before possible discharge. DISCHARGE RECOMMENDATIONS: [] Home with no services [] [] Home with services [specify] [X] Home with outpatient PT for re-evaluation and continued vestibular rehab for neck pain management and functioanl mobility retraining. [] SNF for continued rehabilitation [] [] [facility] [] [] SNF versus LTC based on ability to participate and progress [] TREATMENT CODE/TIME: 87667 x 20 minutes for 1 unit, 29938 x 16 minutes for 1 unit (16:02-16:38). Thank you for the opportunity to participate in the care of this patient. Celia Cade PT, DPT, CLT [facility] [place], [place]
[2023-06-12] MEDS: Acetaminophen 325 MG TAB 650 MG PO (22:15)
[2023-06-13] MEDS: Lactated Ringers 1,000 ML 75 ML IV (00:18)
[2023-06-13 07:45] VITALS: BP 159/84; PULSE 67; RESP 17; TEMP 36.3; O2SAT 95
--- NOTE | 2023-06-13 10:20 | DI.US_ITS ---
Exam(s) US CAROTID EXAM: US CAROTID CLINICAL HISTORY: stenosis. TECHNIQUE: Ultrasound carotids performed using grayscale, color-flow, and spectral Doppler imaging. COMPARISON: No exams were available for comparison FINDINGS: RIGHT CAROTID ARTERY: Plaque: There is calcific plaque seen in the common carotid artery, the carotid bulb, the external ca rotid artery in the proximal internal carotid artery. Velocity elevation: None. LEFT CAROTID ARTERY: Plaque: There is calcific plaque seen in the common carotid artery, the carotid bulb, the external ca rotid artery and the internal carotid artery. Velocity elevation: None. VERTEBRAL ARTERIES: Antegrade flow. Measurements: R Bulb: 75cm/s PS / 12.8cm/s ED R CCA: 54.3cm/s PS / 12.8cm/s ED R ECA: 91.9cm/s PS / 7.6cm/s ED R ICA Prox: 56.4cm/s PS / 8.9cm/s ED R ICA Mid: 68.9cm/s PS / 17.8cm/s ED R ICA Distal: 104.7cm/s PS /17.8cm/s ED R Vert: 72.7cm/s PS / 13.9cm/s ED R SVR: 1.9 R DVR: 1.4 L Bulb: 88cm/s PS / 13.9cm/s ED L CCA: PS / 17.8cm/s ED L ECA: PS / 15cm/s ED L ICA Prox: PS / 10.9cm/s ED L ICA Mid: PS / 14.2cm/s ED L ICA Distal: PS / 17.8cm/s ED L Vert: PS / 12.1cm/s ED L SVR: 1 L DVR: 1 IMPRESSION: No evidence of hemodynamically significant internal carotid artery stenosis. Criteria for Carotid Stenosis: Normal: ICA PSV <125 cm/s no plaque or intimal thickening is visible. <50% stenosis: ICA PSV <125 cm/s and plaque or intimal thickening is visible. 50-69% stenosis: ICA PSV is 125-250 cm/s and plaque is visible. >70% stenosis to near occlusion: ICA PSV >250 cm/s with visible plaque and luminal narrowing. DATA REPOSITORY:
--- NOTE | 2023-06-13 13:04 | DSE_ITS ---
Date of service: 06/13/23 Time of Service: 13:04 DS: Diagnosis Discharge Diagnosis (1) Vertigo: Status: Acute Discharge Plan Disposition Patient Disposition: Home Condition: Improving Discharge Details Reason For Visit: vertigo Admit Date/Time: 06/12/23 06:48 Admit Provider: Marlon Lomas Attending Provider: Marlon Lomas Primary Care Provider: Sydney Sharp Hospital Course Hospital Course: This is a 77 female with past medical history of hypertension, hyperlipidemia and diabeties who presented to the ED with sudden onset vertigo with intractable nausea. No positional factor, just worse with any movement, tolerable if she stays absolutely still. No change vision, speech or focal motor.sensory symptoms. No CHERRY, no preceding URI, no ear pain or d/c. In ER exam unrevealing and CT head negative. she was admitted to hospitalist services as she was unable to be safely re-ambulated and symptoms persisted despite multiple medication attempts to control symptoms. overnight she rested comfortably. vitals remained stable. she was evaluated by physical therapy and symptoms subsided. she is stable for discharge to home with outpatient physical therapy referral. discussed with Dr Carrasco Home Meds and New Rx's Prescriptions: New meclizine 25 mg Tablet 25 mg PO TID PRN PRNQty: 30 0RF cyclobenzaprine 5 mg tablet 5 mg PO TID PRNQty: 10 0RF Continued aspirin 81 mg tablet,delayed release (DR/EC) 81 mg PO DAILY hydrochlorothiazide 12.5 mg tablet 12.5 mg PO QAM Qty: 90 3RF olmesartan 20 mg tablet 20 mg PO DAILY Qty: 90 3RF rosuvastatin [Crestor] 20 mg tablet 20 mg PO DAILY Qty: 90 3RF omega-3 fatty acids 1,000 mg capsule 1,000 mg PO DAILY ascorbate calcium (vitamin C) 500 mg tablet 500 mg PO DAILY cholecalciferol (vitamin D3) [Vitamin D3] 2,000 UNIT tablet 2,000 unit PO DAILY acetaminophen [Acetaminophen Extra Strength] 500 MG tablet 500 mg PO BID PRN magnesium 250 MG tablet 1 tab PO DAILY potassium gluconate 99 MG tablet 99 mg PO DAILY lorazepam 0.5 mg tablet 0.5 mg PO BID PRN (Reason: anxiety) Qty: 5 1RF Rx Instructions: 1/2 to 1 tab BID prn anxiety miguel 12.5 mg DAILY Discharge Instructions Instructions: Benign Paroxysmal Positional Vertigo (DC) Additional Instructions: continue medications as directed outpatient vestibular rehab Stand Alone Forms: Nursing Discharge Form Referrals: Sydney Sharp DO [Primary Care Provider] - 06/30/23 8:30 am Activity:: Activity as Tolerated Equipment/Supplies:: No Equipment Needed Diet:: As Tolerated Discharge Orders Discharge Orders: Discharge Order (Routine); Ordered 06/13/23 Ordered By: Ngozi Mckinley Discharge Data Discharge Date/Time-TO BE ENTERED AT DEPARTURE: 06/13/23 16:26 DS: Summary Time Spent with Patient providing and/or coordinating discharge services: Less than 30 minutes Status at Discharge Functional status at discharge: independent ambulation Overall status at discharge: patient is back to baseline Mental Status: mental status grossly normal Speech and Movement: speech and movement normal Mood: congruent mood Affect: normal affect Quality:SDOH Health Related Social Needs: No Data to Display Exam Const General: cooperative, healthy appearing, comfortable and no acute distress Nutritional Appearance: obese Orientation: alert, awake and oriented x3 HENMT Head: normal to inspection, normocephalic and atraumatic Ears: hearing grossly normal bilaterally and external ears normal Eyes General: appearance normal, both eyes and all related structures Alignment and Position: alignment normal Periorbital: periorbital findings normal Eyelids: eyelids normal Pupils: PERRL EOM: EOM intact bilaterally and No nystagmus Neuro Cranial Nerves: no nystagmus Psych Mental Status: mental status grossly normal Speech and Movement: speech and movement normal Mood: congruent mood Affect: normal affect DS: Data Vitals/I&O Vitals and I&O: Vital Signs Temperature 36.3 C L 06/13/23 07:45 Temperature Source Tympanic 06/13/23 07:45 Pulse 67 06/13/23 07:45 Pulse Rhythm Regular 06/13/23 08:30 Pulse 67 06/12/23 08:10 Respiratory Rate 17 06/13/23 07:45 Respiratory Effort Normal 06/13/23 08:30 Respiratory Depth Normal 06/13/23 08:30 Respiratory Pattern Normal 06/13/23 08:30 Blood Pressure 159/84 H 06/13/23 07:45 Blood Pressure Mean 87 06/12/23 06:46 Pulse Oximetry 95 06/13/23 07:45 Oxygen Delivery Method Room Air 06/13/23 08:30 Oxygen Flow Rate 0 06/13/23 08:30 Pain Level 0 06/13/23 08:30 Intake & Output 06/12/23 06/13/23 06/13/23 23:59 11:59 23:59 Intake Total 1350 / 1350 1350 / 2350 1000 / 2350 Balance 1350 / 1350 1350 / 2350 1000 / 2350 Weight 112.7 kg Intake: IV 1000 / 1000 1000 / 2000 1000 / 2000 Oral 350 / 350 350 / 350 Other: Urine Color Yellow Urine Appearance Clear Comment patient voided this am independently Voiding Methods Toilet Toilet PFSH All Active Problems (Updated 06/14/23 @ 00:06 by SKIP BARFIELD) Nausea & vomiting (Acute) Vertigo (Acute) Back pain (Acute) CKD (chronic kidney disease) stage 3, GFR 30-59 ml/min (Acute) Coronary artery calcification seen on CT scan (Acute) Heart: The heart is not dilated. Marked coronary artery calcification and/or stents are noted. No pericardial effusion. per 08/2022 Knee pain, bilateral (Acute) Family hx of lung cancer (Acute) Family history of breast cancer (Acute) Social isolation (Acute) henry fall/winter .. SAD? Hearing loss (Acute) History of tobacco use (Chronic) 40+ pk yrs, quit 2014 Chronic kidney disease (CKD) (Chronic) Social anxiety disorder (Chronic 05/10/16) Episodic, Hx lorzpm when traveling to son/dtr-in-law Pure hypercholesterolemia (Chronic 11/05/12) Essential hypertension (Chronic 07/17/13) Diabetes mellitus (Chronic 07/31/12) Medical History Tobacco use disorder (11/05/12) smoked 40 yrs. quit 11/18/14 Obesity, unspecified (11/05/12) Left nephrolithiasis (11/25/14) 11/19/14 w/Obstruction and Bacteremia--s/p Stent 11/20/14 at [facility] [place] and [facility] 11/22/14. H/O TIA (transient ischemic attack) and stroke (07/17/13) Depression (09/03/14) Surgical History nuclear/cortical cataract,right eye (10/23/17) . Ligation of fallopian tube Colonoscopy - IV Sedation Biopsy of breast Family History Mother Hypertensive disorder, systemic arterial Father Personal history of malignant neoplasm prostate Sister Personal history of malignant neoplasm uterine ca, breast ca Brother Hypertensive disorder, systemic arterial Family history of stroke Brother Personal history of malignant neoplasm Lung CA Sister Diabetes Brother Hypertensive disorder, systemic arterial Heart disease Brother Hypertensive disorder, systemic arterial Hearing loss Brother Heart disease Brother Hypertensive disorder, systemic arterial Heart disease Social History Smoking/Tobacco Use Status: Former Tobacco Use Smoking risk assessment performed?: Yes Alcohol Intake: never Drug use: Never Substance use type: does not use Household members: none Housing: apartment Number of Children: 1 number of grandchildren: 1 Communication Needs: Corrective Lenses current occupation: Retired [employer] What is your relationship status?: Panel score (0-1 are the most socially isolated patients): 0 What type of physical activity do you participate in: none Seatbelt use: always Drive intox or ride w/intox transit driver: No Working smoke detector in home: Yes Fire extinguisher in home: Yes Carbon monox detector in home: Yes Do you feel safe at home: Yes Time Spent with Patient Time Spent with Patient: <45 minutes Time was spent: preparing to see the patient(eg.review tests), ordering medications,tests, procedures, indepentently interpreting results and counseling the patient
--- NOTE | 2023-06-13 13:50 | PT.INTREAT ---
PT Notes Visit Reasons: vertigo Physical Therapy Inpatient Treatment Note Date: 06/13/2023 Precautions: Fall. Standard. Activity as tolerated. SUBJECTIVE: Has not had Meclizine since yesterday morning and has been asymptomatic except for her persistent chronic posterior neck pain which is worse from how it has been when she got admitted. Verbalizes 1/10 dysequiibrium (10 being the worst and 0 no dysequilibroum) for this session. OBJECTIVE: Posture: Good upright posturing Observation: Movement less guarded, gait speed much improved Mental Status: A and O x 4 Vital Signs: Closely monitored by nursing staff Bed Mobility/Transfers: Rolling indpendent Supine to sit indpendent Sit to supine indpendent Sit to stand indpendent Stand to sit indpendent Gait: Tolerated up to 300 feet without assistive device but of reduced gait speed from baseline per patient. Speed of walking decreased with head turn to R. Special Tests: ?Alar Ligament Test: Negative Sharp-Marilyn Test: Negative ? Dunia-Halpike: No nystagmus seen nor symptom provocation during test for both sides ? Supine Roll Test: Negative Balance: Static Sitting: Good Dynamic Sitting: Good Static Standing: Good Dynamic Standing: Fair MANUAL THERAPY: -DTM to B lev scapulae and upper traps with good response NEURO RE-ED: -Gaze stabilization exercises with good response ASSESSMENT: Symptoms now almost resolved even without another Meclizine intake. Chronic and worsened neck pain after having stayed/slept on her couch may have further strained her neck muscles and provoked acute vertiginous symptoms. Montgomery-Hallpike and supine hed roll test negative. DISCHARGE RECOMMENDATIONS: [] Home with no services [] [] Home with services [specify] [X] Home with outpatient PT for re-evaluation and continued vestibular rehab for neck pain management and functional mobility retraining. [] SNF for continued rehabilitation [] [] [facility] [] [] SNF versus LTC based on ability to participate and progress [] TREATMENT CODE/TIME: 86257 x 30 minutes for 2 units (13:50-14:20).
--- NOTE | 2023-06-13 16:01 | CHAPLAIN ---
sIaura was all dressed and resting in bed when I visited. She thought she was going to be discharged, since she was told she could get dressed in her own clothes. She was also waiting for some test results. She told me about the sudden onset of vertigo and calling 911. She has several family members in the area, (she's one of 11 kids from [place] and some surviving siblings still live nearby) but her son, grandchildren and greatgrandson live in [place]. Isaura talked about what a blessing her family of origin was and now her own family. She also said she's received really good care here and was appreciative of that.
== END 2023-06-13 16:26 | disposition home or self-care (01) ==
LOC: ER 06:58 → MS 08:44
PROVIDERS: Admitting Provider General Practice; Emergency Provider Emergency Medicine; PCP Student in an Organized Health Care Education/Training Program; Visit Provider General Practice
DX: R42 Dizziness and giddiness (principal); E78.5 Hyperlipidemia, unspecified; R11.0 Nausea; N18.30 Chronic kidney disease, stage 3 unspecified; I25.10 Atherosclerotic heart disease of native coronary artery without angina pectoris; Z87.891 Personal history of nicotine dependence; I12.9 Hypertensive chronic kidney disease with stage 1 through stage 4 chronic kidney disease, or unspecified chronic kidney disease; E11.22 Type 2 diabetes mellitus with diabetic chronic kidney disease; E78.00 Pure hypercholesterolemia, unspecified; Z79.899 Other long term (current) drug therapy; E66.9 Obesity, unspecified; F40.10 Social phobia, unspecified; Z68.42 Body mass index [BMI] 45.0-49.9, adult
CPT/HCPCS: 00123; 70544; 70547; 80053; 93005; 93306; 96361; 96374; 96375; 97162; 97530; 99285; 70450; 70551; 71045; 84484; 85025; 93010; 93880; 99223; 99238; G0378; J2250; J2405

== ENCOUNTER 2025-02-04 16:00 | Outpatient (CLI) | payer MEDICARE, SELFPAY ==
[2025-02-04 17:02] LABS: COMMENT (LAB VIEW ONLY) 141.56 mg/dL; Microalb ug/mg Crea 11.5 ug/mg Cr
[2025-02-04 17:03] LABS: ALT 23 U/L (14-59); AST 14 U/L (15-37); Albumin 3.9 g/dL (3.4-5.0); Alkaline Phosphatase 84 U/L (46-116); Anion Gap 9.8 mmol/L (3-11); BUN 19 mg/dL (7-18); Bilirubin, Total 0.6 mg/dL (0.2-1.0); CO2 26.2 mmol/L (21.0-32.0); Calcium 9.5 mg/dL (8.5-10.1); Calculated LDL 80 mg/dL (<100); Chloride 100 mmol/L (98-107); Cholesterol 167 mg/dL (<200); Estimated GFR 35.45 (mL/min/1.73m2); Glucose 138 mg/dL (74-106); HDL Cholesterol 58 mg/dL (>or=50); Potassium 4.1 mmol/L (3.5-5.1); Sodium 136 mmol/L (136-145); Total Protein 7.9 g/dL (6.4-8.2); Triglyceride 145 mg/dL (<150)
[2025-02-04 17:05] LABS: Creatine Kinase 83 U/L (26-192)
== END 2025-02-04 16:01 | disposition home or self-care (01) ==
LOC: LBO 16:02
PROVIDERS: PCP Nurse Practitioner Family; Visit Provider Nurse Practitioner Family
DX: E78.00 Pure hypercholesterolemia, unspecified (principal); E11.9 Type 2 diabetes mellitus without complications; N18.30 Chronic kidney disease, stage 3 unspecified
CPT/HCPCS: 36415; 80053; 80061; 82550; 82043; 82570